=== PATIENT | male | born 1985 | race African-American/Black ===

== ENCOUNTER 2018-04-07 16:26 | Inpatient (IN) ==
[2018-04-07] MEDS ORDERED: Acetaminophen 325 MG Tablet PO PRN ×2 (18:20→18:27)
[2018-04-07] MEDS ORDERED: Sod Chloride 0.9% Inj 1,000 ML IV.CONT PRN (18:27)
[2018-04-07] MEDS ORDERED: Gelatin 12 MM/7 MM Topical Foam TOPICAL PRN (18:27)
[2018-04-07] MEDS ORDERED: Heparin 10,000 UNITS/10 ML Vial (for IV use) OTHER PRN (18:27)
[2018-04-07] MEDS ORDERED: Sod Chloride 0.9% Inj 1,000 ML OTHER PRN ×2 (18:27)
[2018-04-07] MEDS ORDERED: Albumin Human 25% Inj 100 ML IV.SIG PRN (18:27)
--- NOTE | 2018-04-07 18:35 | P.CONNP ---
History of Present Illness Service: Nephrology Consult date: 04/07/18 Requesting Physician: Narayan Healy Reason for Consult: End-stage renal disease Primary Care Provider: UNKNOWN History of Present Illness: Patient is a 32-year-old male with history of end-stage renal disease, FSGS, hypertension, he is here for a kidney transplant offer, he denies any chest pain , shortness of breath he states that he had dialysis yesterday, he gains about 3 -4 kg on average Goes on dialysis on Wednesday. Review of Systems Constitutional: Denies anorexia, Denies body ache(s), Denies chills, Denies daytime sleepiness, Denies excessive sweating, Denies fatigue, Denies fever(s), Denies headache(s), Denies increased appetite, Denies lack of energy, Denies malaise, Denies night sweats, Denies weakness, Denies weight gain, Denies weight loss, Denies other Eyes: Denies blind spots, Denies blurry vision, Denies bulging eyes, Denies change in vision, Denies double vision, Denies discharge, Denies dry eyes, Denies floaters, Denies irritation, Denies itchy eyes, Denies loss of vision, Denies pain, Denies requires corrective lenses, Denies sensitivity to light, Denies other Ears, Nose, Mouth, and Throat: Denies abnormal hearing, Denies bleeding gums, Denies bad breath, Denies change in voice, Denies dental pain, Denies difficulty swallowing, Denies dizziness, Denies dry mouth, Denies ear discharge , Denies ear pain, Denies facial pain, Denies headache(s), Denies hearing loss, Denies hoarseness, Denies lip swelling, Denies nosebleed, Denies mouth lesions, Denies mouth pain, Denies nasal congestion, Denies nasal discharge, Denies nasal obstruction, Denies nasal trauma, Denies neck lump, Denies neck pain, Denies nose pain, Denies pain with swallowing, Denies poor balance, Denies post nasal drip, Denies ringing in the ears, Denies sinus pain, Denies sinus pressure , Denies sore throat, Denies throat swelling, Denies tongue swelling, Denies other Cardiovascular: Denies chest pain, Denies chest pain at rest, Denies chest pain with activity, Denies excessive sweating, Denies fainting, Denies fast heart rate, Denies foot swelling, Denies generalized swelling, Denies irregular heart rhythm, Denies leg pain with activity, Denies leg sores, Denies leg swelling, Denies lightheadedness, Denies radiating jaw, neck or arm pain, Denies rapid, pounding, or irregular heartbeat, Denies shortness of breath, Denies shortness of breath with activity, Denies shortness of breath when lying down, Denies shortness of breath causing sudden awakening, Denies slow heart rate, Denies other Respiratory: Denies change in phlegm color, Denies chest congestion, Denies cough, Denies coughing up blood, Denies excessive phlegm production, Denies pain on inspiration, Denies pain with cough, Denies shortness of breath, Denies shortness of breath with activity, Denies snoring, Denies stridor, Denies wheezing, Denies other Gastrointestinal: Denies abdominal pain, Denies belching, Denies black, tarry stools, Denies bloating, Denies bright, red blood in stools, Denies change in bowel habits, Denies constant urge to pass stool, Denies change in stools, Denies coffee ground vomit, Denies constipation, Denies cramping, Denies difficulty swallowing, Denies excessive passing of gas, Denies feeling full early, Denies heartburn, Denies incontinent of stools, Denies loose stools, Denies nausea, Denies pain with swallowing, Denies vomiting, Denies vomiting blood, Denies other Genitourinary: Reports urinary frequency (Does not make urine) Musculoskeletal: Denies abnormal walking, Denies back pain, Denies body aches, Denies decreased muscle mass, Denies deformity, Denies joint pain, Denies joint swelling, Denies limited joint movement, Denies loss of height, Denies muscle cramps, Denies muscle weakness, Denies neck pain, Denies numbness, Denies radiating pain into limb, Denies stiffness, Denies tingling, Denies other Skin/Breast: Denies acne, Denies bleeding lesions, Denies boil, Denies breast swelling, Denies breast skin changes, Denies breast pain, Denies breast lump, Denies change in breast shape, Denies change in hair, Denies change in skin color, Denies changing lesions, Denies dry skin, Denies excessive hair growth, Denies hair loss, Denies itching, Denies lesions, Denies nail changes, Denies new lesions, Denies nipple discharge, Denies non-healing lesions, Denies redness , Denies sensitivity to light, Denies rash, Denies skin pain, Denies skin ulcer , Denies sores, Denies stretch larose, Denies unusual bruising, Denies wounds, Denies yellowing of the skin, Denies other Neurologic: Denies abnormal hearing, Denies abnormal movements, Denies abnormal speech, Denies abnormal walking, Denies behavioral changes, Denies burning sensations, Denies confusion, Denies dizziness, Denies fainting, Denies frequent falls, Denies headache(s), Denies lack of coordination, Denies localized weakness, Denies loss of vision, Denies memory loss, Denies numbness, Denies other visual disturbances, Denies radiating pain, Denies restless legs, Denies convulsions, Denies seizure-like activity, Denies sensory deficit, Denies tingling, Denies tingling/numbness/burning sensations, Denies tremor(s), Denies unsteadiness, Denies weakness, Denies other Psychiatric: Denies abnormal sleep pattern, Denies anxiety, Denies behavioral changes, Denies change in appetite, Denies change in sex drive, Denies confusion , Denies depression, Denies difficulty concentrating, Denies hearing things others do not hear, Denies hopelessness, Denies irritability, Denies lack of enjoyment, Denies memory loss, Denies mood swings, Denies panic attacks, Denies paranoia, Denies seeing things others do not see, Denies sensing things others do not sense, Denies tactile hallucinations, Denies thoughts of hurting/killing others, Denies thoughts of hurting/killing yourself, Denies other Endocrine: Denies cold intolerance, Denies excessive sweating, Denies flushing, Denies heat intolerance, Denies increased hunger, Denies increased thirst, Denies increased urination, Denies rapid, pounding, or irregular heartbeat, Denies other Hematologic/Lymphatic: Denies easy bleeding, Denies easy bruising, Denies enlarged lymph nodes, Denies other Allergic/Immunologic: Denies GI upset with certain foods, Denies hives, Denies itchy eyes, Denies lip swelling, Denies seasonal runny nose, Denies throat swelling, Denies tongue swelling, Denies wheezing, Denies other PMFSH - History History Provided By: Patient, Significant Other - Medical History Medical History: Medical History (Last Reviewed 04/07/18 @ 18:33 by Bronson Burr MD) AVF (arteriovenous fistula) Abnormal biopsy of kidney - Surgical History Surgical History: Surgical History (Last Reviewed 04/07/18 @ 18:33 by Bronson Burr MD) H/O inguinal hernia repair History of appendectomy - Family History Family History: Family History (Last Reviewed 04/07/18 @ 18:33 by Bronson Burr MD) Brother FSGS (focal segmental glomerulosclerosis) Mother HTN (hypertension) Father Glaucoma - Tobacco History Second Hand Smoke Exposure: No Smoking Status: Former smoker Tobacco Type: Cigarettes Cigarettes Per Day: 3 Years Smoked: 7 Smoking End Date: Last year - Alcohol History How Often Do You Have a Drink Containing Alcohol: Monthly or less - Substance Use History Substance History: No History of Abuse - Travel History History of Recent Travel: No Medications and Allergies Active Medications: Active Medications Acetaminophen (Tylenol) 650 mg PO Q4H PRN PRN Reason: Temp > 100.4, p 1-2 Ondansetron HCl (Zofran Inj) 4 mg IV.PUSH Q6H PRN PRN Reason: NAUSEA OR VOMITING Oxycodone/Acetaminophen (Percocet 5/325 Mg) 1 tab PO Q4H PRN PRN Reason: p 3-10 Senna/Docusate Sodium (Jaquelin-Colace) 1 tab PO BID LAZARO Sodium Chloride (Ns Flush) 2 ml IV.FLUSH BID LAZARO Sodium Chloride (Ns Flush) 2 ml IV.FLUSH PRN PRN PRN Reason: FLUSH AFTER USING IV ACCESS Allergies Allergy/AdvReac Type Severity Reaction Status Date / Time lisinopril Allergy Intermediate Rash Unverified 09/29/16 13:03 Home Medications Medication Instructions Recorded Confirmed Type amlodipine 10 mg PO BID 10/01/17 10/01/17 History carvedilol 37.5 mg PO BID 10/01/17 10/01/17 History cinacalcet [Sensipar] 120 mg PO DAILY 10/01/17 10/01/17 History clonidine HCl 0.2 mg PO BID 10/01/17 10/01/17 History losartan 50 mg PO DAILY 10/01/17 10/01/17 History minoxidil 2.5 mg PO DAILY 10/01/17 10/01/17 History sevelamer carbonate [Renvela] 4,000 mg PO TID 10/01/17 10/01/17 History spironolactone 25 mg PO DAILY 10/01/17 10/01/17 History Exam Narrative: GENERAL: Well-nourished, well-developed patient. SKIN: Warm and dry. HEAD: Normocephalic. EYES: No scleral icterus. No injection or drainage. NECK: Supple, trachea midline. No JVD or lymphadenopathy. CARDIOVASCULAR: Regular rate and rhythm without murmurs, gallops, or rubs. RESPIRATORY: Breath sounds equal bilaterally. No accessory muscle use. GASTROINTESTINAL: Abdomen soft, non-tender, nondistended. EXTREMITIES: 1+ edema NEUROLOGICAL: Awake, alert, and oriented x 3. Non-focal. Assessment and Plan - Assessment (1) ESRD (end stage renal disease) on dialysis Code(s): N18.6 - End stage renal disease; Z99.2 - Dependence on renal dialysis Status: Acute Plan: He is here for kidney transplant offer discussed with Dr. Healy Appears good, labs drawn Dialysis will be arranged for tonight He is scheduled to undergo kidney transplant around 11 AM Follow the protocol immunosuppressive medication is steroid, thyroglobulin induction. (2) HTN (hypertension) Code(s): I10 - Essential (primary) hypertension Status: Acute Plan: Continue to monitor blood pressure (2) HTN (hypertension) Qualifiers: Hypertension type: essential hypertension Qualified Code(s): I10 - Essential (primary) hypertension
--- NOTE | 2018-04-07 18:36 | P.HPIM ---
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 Patient states that he knew about his renal disease for many years and started dialysis in 2012. He says he started the transplant workup 1-2 days ago. He says he makes 0 urine at this time. His last dialysis session was on Wednesday. He has not had any problems with dialysis. He says every once in a while he will get back pains and headaches for which he takes Percocet at home. He is active and plays basketball every once in a while. He denies any recent fevers. He did endorse a cold a few weeks ago. He has no acute complaints at this time. Discussed with nursing and family at the bedside. Inpatient Certification Inpatient Certification: I certify that the inpatient services were ordered in accordance with Medicare regulations governing the order. This includes certification that hospital inpatient services are reasonable and necessary and in the case of services not specified as inpatient-only under 42 CFR 419.22(n), that they are appropriately provided as inpatient services in accordance to with the 2-midnight benchmark under 43 CFR 412.3(e) Estimated Total Length of Stay (Days): 3 Plans for Post Hospital Care: Home Review of Systems Review of Systems: all other systems reviewed are negative [facility] Medical History Medical History Arteriovenous fistula for hemodialysis in place, primary (Acute) Glomerulonephritis, focal sclerosing (Acute) HTN (hypertension) (Acute) Surgical History Surgical History History of appendectomy (Acute) Family History Family History Brother FSGS (focal segmental glomerulosclerosis) Mother HTN (hypertension) Father Glaucoma Social History Social History Substance History: No History of Abuse Second Hand Smoke Exposure: No Smoking Status: Former smoker Tobacco Type: Cigarettes Cigarettes Per Day: 3 Years Smoked: 7 Pack-Years: 1.05 Smoking End Date: Last year How Often Do You Have a Drink Containing Alcohol: Monthly or less Hx Recent Travel: No Medications and Allergies Allergies Allergy/AdvReac Type Severity Reaction Status Date / Time lisinopril Allergy Intermediate Rash Unverified 09/29/16 13:03 Home Medications Medication Instructions Recorded Confirmed Type amlodipine 10 mg PO BID 10/01/17 10/01/17 History carvedilol 37.5 mg PO BID 10/01/17 10/01/17 History cinacalcet [Sensipar] 120 mg PO DAILY 10/01/17 10/01/17 History clonidine HCl 0.2 mg PO BID 10/01/17 10/01/17 History losartan 50 mg PO DAILY 10/01/17 10/01/17 History minoxidil 2.5 mg PO DAILY 10/01/17 10/01/17 History sevelamer carbonate [Renvela] 4,000 mg PO TID 10/01/17 10/01/17 History spironolactone 25 mg PO DAILY 10/01/17 10/01/17 History Active Medications: Active Medications Acetaminophen (Tylenol) 650 mg PO Q4H PRN PRN Reason: Temp > 100.4, p 1-2 Ondansetron HCl (Zofran Inj) 4 mg IV.PUSH Q6H PRN PRN Reason: NAUSEA OR VOMITING Oxycodone/Acetaminophen (Percocet 5/325 Mg) 1 tab PO Q4H PRN PRN Reason: p 3-10 Senna/Docusate Sodium (Jaquelin-Colace) 1 tab PO BID LAZARO Sodium Chloride (Ns Flush) 2 ml IV.FLUSH BID LAZARO Sodium Chloride (Ns Flush) 2 ml IV.FLUSH PRN PRN PRN Reason: FLUSH AFTER USING IV ACCESS Physical Exam Narrative: General: NAD HEENT: NC, AT Lungs: CTAB, no W/R/R Cardiac: RRR, systolic murmur appreciated Abdomen: Soft, NT, ND Extremities: No edema Neuro: No gross deficits Caprini VTE Risk Assessment Caprini VTE Risk Assessment: No/Low Risk (score <= 1) Caprini Risk Assessment Model: Point Value = 1 Point Value = 2 Point Value = 3 Point Value = 5 Age 41-60 Minor surgery BMI > 25 kg/m2 Swollen legs Varicose veins or History of unexplained or recurrent spontaneous Oral contraceptives or hormone replacement Sepsis (< 1 month) Serious lung disease, including pneumonia (< 1 month) Abnormal pulmonary function Acute myocardial infarction Congestive heart failure (< 1 month) History of inflammatory bowel disease Medical patient at bed rest Age 61-74 Arthroscopic surgery Major open surgery (> 45 min) Laparoscopic surgery (> 45 min) Malignancy Confined to bed (> 72 hours) Immobilizing plaster cast Central venous access Age >= 75 History of VTE Family history of VTE Factor V Leiden Prothrombin [id number] Lupus anticoagulant Anticardiolipin antibodies Elevated serum homocysteine Heparin-induced thrombocytopenia Other congenital or acquired thrombophilia Stroke (< 1 month) Elective arthroplasty Hip, pelvis, or leg fracture Acute spinal cord injury (< 1 month) Prophylaxis Regimen: Total Risk Factor Score Risk Level Prophylaxis Regimen 0-1 Low Early ambulation 2 Moderate Order ONE of the following: *Sequential Compression Device (SCD) *Heparin 5000 units SQ BID 3-4 Higher Order ONE of the following medications: *Heparin 5000 units SQ TID *Enoxaparin/Lovenox 40 mg SQ daily (WT < 150 kg, CrCl > 30 mL/min) *Enoxaparin/Lovenox 30 mg SQ daily (WT < 150 kg, CrCl > 10-29 mL/min) *Enoxaparin/Lovenox 30 mg SQ BID (WT < 150 kg, CrCl > 30 mL/min) AND/OR *Sequential Compression Device (SCD) 5 or more Highest Order ONE of the following medications: *Heparin 5000 units SQ TID (Preferred with Epidurals) *Enoxaparin/Lovenox 40 mg SQ daily (WT < 150 kg, CrCl > 30 mL/min) *Enoxaparin/Lovenox 30 mg SQ daily (WT < 150 kg, CrCl > 10-29 mL/min) *Enoxaparin/Lovenox 30 mg SQ BID (WT < 150 kg, CrCl > 30 mL/min) AND *Sequential Compression Device (SCD) Assessment and Plan Plan 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 -Renal transplant in the works. -Follow BMP. -Avoid nephrotoxins. -nephrology and transplant surgery consulted. -pain control as needed. Hypertension Well-controlled at this time. -Resume home regimen once medication reconciliation is updated. PPx: SCDs
[2018-04-07] MEDS ORDERED: Sod Chloride 0.9% Inj 1,000 ML IV.CONT ONE (18:38)
--- NOTE | 2018-04-07 19:30 | P.CONTS ---
History of Present Illness Service: Transplant Surgery Consult date: 04/07/18 Requesting Physician: Gian Boles Reason for Consult: Admit for potential donor kidney transplant Primary Care Provider: UNKNOWN Chief Complaint: ESRD History of Present Illness: Mr Alex Massey III is a 32 yo AAM with the primary diagnosis of FSGS/Htn who completed a kidney transplant evaluation and was approved by our Kidney Listing Committee. A possible kidney donor has been found for him. ( final transplant crossmatch is nedegative with no channel shifts). Donor UNOS ID: [id number]. He is CMV+/ EBV+. He has required HD support since 07/25/12. His last dialysis was yesterday. And the time of admission, patient makes no urine (anuric since 2013). In the recent days he denies any fevers, recent hospitalizations, and any significant change in his health since he was last seen in our [facility]. Review of Systems Constitutional: Denies anorexia, Denies body ache(s), Denies chills, Denies daytime sleepiness, Denies excessive sweating, Denies fatigue, Denies fever(s), Denies headache(s), Denies increased appetite, Denies lack of energy, Denies malaise, Denies night sweats, Denies weakness, Denies weight gain, Denies weight loss, Denies other Eyes: Denies blind spots, Denies blurry vision, Denies bulging eyes, Denies change in vision, Denies double vision, Denies discharge, Denies dry eyes, Denies floaters, Denies irritation, Denies itchy eyes, Denies loss of vision, Denies pain, Denies requires corrective lenses, Denies sensitivity to light, Denies other Ears, Nose, Mouth, and Throat: Reports abnormal hearing, Reports ringing in the ears, Denies bleeding gums, Denies bad breath, Denies change in voice, Denies dental pain, Denies difficulty swallowing, Denies dizziness, Denies dry mouth, Denies ear discharge, Denies ear pain, Denies facial pain, Denies headache(s), Denies hearing loss, Denies hoarseness, Denies lip swelling, Denies nosebleed, Denies mouth lesions, Denies mouth pain, Denies nasal congestion, Denies nasal discharge, Denies nasal obstruction, Denies nasal trauma, Denies neck lump, Denies neck pain, Denies nose pain, Denies pain with swallowing, Denies poor balance, Denies post nasal drip, Denies sinus pain, Denies sinus pressure, Denies sore throat, Denies throat swelling, Denies tongue swelling, Denies other Cardiovascular: Denies chest pain, Denies chest pain at rest, Denies chest pain with activity, Denies excessive sweating, Denies fainting, Denies fast heart rate, Denies foot swelling, Denies generalized swelling, Denies irregular heart rhythm, Denies leg pain with activity, Denies leg sores, Denies leg swelling, Denies lightheadedness, Denies radiating jaw, neck or arm pain, Denies rapid, pounding, or irregular heartbeat, Denies shortness of breath, Denies shortness of breath with activity, Denies shortness of breath when lying down, Denies shortness of breath causing sudden awakening, Denies slow heart rate, Denies other Respiratory: Denies change in phlegm color, Denies chest congestion, Denies cough, Denies coughing up blood, Denies excessive phlegm production, Denies pain on inspiration, Denies pain with cough, Denies shortness of breath, Denies shortness of breath with activity, Denies snoring, Denies stridor, Denies wheezing, Denies other Gastrointestinal: Denies abdominal pain, Denies belching, Denies black, tarry stools, Denies bloating, Denies bright, red blood in stools, Denies change in bowel habits, Denies constant urge to pass stool, Denies change in stools, Denies coffee ground vomit, Denies constipation, Denies cramping, Denies difficulty swallowing, Denies excessive passing of gas, Denies feeling full early, Denies heartburn, Denies incontinent of stools, Denies loose stools, Denies nausea, Denies pain with swallowing, Denies vomiting, Denies vomiting blood, Denies other Genitourinary: Denies blood in semen, Denies blood in urine, Denies decreased urination, Denies difficulty urinating, Denies difficulty with ejaculations, Denies erectile dysfunction, Denies genital lesions, Denies genital pain, Denies painful urination, Denies side pain, Denies frequent nighttime urination , Denies painful ejaculations, Denies penile discharge, Denies scrotal swelling , Denies testicle lump, Denies testicle pain, Denies urinary frequency, Denies urinary hesitancy, Denies urinary incontinence, Denies urinary urgency, Denies other Comments: anuric since 2013 Musculoskeletal: Denies abnormal walking, Denies back pain, Denies body aches, Denies decreased muscle mass, Denies deformity, Denies joint pain, Denies joint swelling, Denies limited joint movement, Denies loss of height, Denies muscle cramps, Denies muscle weakness, Denies neck pain, Denies numbness, Denies radiating pain into limb, Denies stiffness, Denies tingling, Denies other Skin/Breast: Denies acne, Denies bleeding lesions, Denies boil, Denies breast swelling, Denies breast skin changes, Denies breast pain, Denies breast lump, Denies change in breast shape, Denies change in hair, Denies change in skin color, Denies changing lesions, Denies dry skin, Denies excessive hair growth, Denies hair loss, Denies itching, Denies lesions, Denies nail changes, Denies new lesions, Denies nipple discharge, Denies non-healing lesions, Denies redness , Denies sensitivity to light, Denies rash, Denies skin pain, Denies skin ulcer , Denies sores, Denies stretch larose, Denies unusual bruising, Denies wounds, Denies yellowing of the skin, Denies other Neurologic: Denies abnormal hearing, Denies abnormal movements, Denies abnormal speech, Denies abnormal walking, Denies behavioral changes, Denies burning sensations, Denies confusion, Denies dizziness, Denies fainting, Denies frequent falls, Denies headache(s), Denies lack of coordination, Denies localized weakness, Denies loss of vision, Denies memory loss, Denies numbness, Denies other visual disturbances, Denies radiating pain, Denies restless legs, Denies convulsions, Denies seizure-like activity, Denies sensory deficit, Denies tingling, Denies tingling/numbness/burning sensations, Denies tremor(s), Denies unsteadiness, Denies weakness, Denies other Psychiatric: Denies abnormal sleep pattern, Denies anxiety, Denies behavioral changes, Denies change in appetite, Denies change in sex drive, Denies confusion , Denies depression, Denies difficulty concentrating, Denies hearing things others do not hear, Denies hopelessness, Denies irritability, Denies lack of enjoyment, Denies memory loss, Denies mood swings, Denies panic attacks, Denies paranoia, Denies seeing things others do not see, Denies sensing things others do not sense, Denies tactile hallucinations, Denies thoughts of hurting/killing others, Denies thoughts of hurting/killing yourself, Denies other Endocrine: Denies cold intolerance, Denies excessive sweating, Denies flushing, Denies heat intolerance, Denies increased hunger, Denies increased thirst, Denies increased urination, Denies rapid, pounding, or irregular heartbeat, Denies other Hematologic/Lymphatic: Denies easy bleeding, Denies easy bruising, Denies enlarged lymph nodes, Denies other Allergic/Immunologic: Denies GI upset with certain foods, Denies hives, Denies itchy eyes, Denies lip swelling, Denies seasonal runny nose, Denies throat swelling, Denies tongue swelling, Denies wheezing, Denies other PMFSH - History History Provided By: Patient, Significant Other - Medical History Medical History: Medical History (Last Updated 04/07/18 @ 19:19 by Narayan Healy MD) Arteriovenous fistula for hemodialysis in place, primary GERD (gastroesophageal reflux disease) Glomerulonephritis, focal sclerosing HTN (hypertension) - Surgical History Surgical History: Surgical History (Last Updated 04/07/18 @ 19:19 by Narayan Healy MD) History of appendectomy S/P inguinal hernia repair - Family History Family History: Family History (Last Reviewed 04/07/18 @ 18:33 by Gian Boles DO) Brother FSGS (focal segmental glomerulosclerosis) Mother HTN (hypertension) Father Glaucoma - Tobacco History Second Hand Smoke Exposure: No Smoking Status: Former smoker Tobacco Type: Cigarettes Cigarettes Per Day: 3 Years Smoked: 7 Smoking End Date: Last year - Alcohol History How Often Do You Have a Drink Containing Alcohol: Monthly or less - Substance Use History Substance History: No History of Abuse - Travel History History of Recent Travel: No Recent Travel in the [facility] Within the Last 8 Weeks: No Recent Travel Out of the Country Within the Last 8 Weeks: No Medications and Allergies Active Medications: Active Medications Acetaminophen (Tylenol) 650 mg PO Q4H PRN PRN Reason: Temp > 100.4, p 1-2 Acetaminophen (Tylenol) 650 mg PO UNSCH PRN PRN Reason: SEE LABEL COMMENTS Clonidine HCl (Catapres) 0.1 mg PO UNSCH PRN PRN Reason: SEE LABEL COMMENTS Diphenhydramine HCl (Benadryl) 25 mg PO UNSCH PRN PRN Reason: SEE LABEL COMMENTS Gelatin (Gelfoam 12 Mm/7 Mm Topical) 1 foam TOPICAL PRN PRN PRN Reason: help stop bleeding from site Heparin Sodium (Porcine) (Heparin Inj) 8,000 units OTHER WITH DIALYSIS PRN PRN Reason: for machine prime Albumin Human (Flexbumin 25% Inj) 100 mls @ 60 mls/hr IV.SIG WITH DIALYSIS PRN PRN Reason: hypotension / volume replace Sodium Chloride (Ns Inj) 1,000 mls @ 0 mls/hr OTHER .Q0M PRN PRN Reason: for prime and rinse back Sodium Chloride (Ns Inj) 1,000 mls @ 200 mls/hr OTHER .Q5H PRN PRN Reason: for dialyzer flush PRN Sodium Chloride (Ns Inj) 1,000 mls @ 0 mls/hr IV.CONT .Q0M PRN PRN Reason: hypotension / volume replace Cefazolin Sodium/Dextrose (Ancef 2 Gm Premix Inj) 2 gm in 50 mls @ 100 mls/hr IV.SIG PLUMBER ASSISTANT LAZARO Stop: 04/10/18 18:40 Sodium Chloride (Ns Inj) 1,000 mls @ 40 mls/hr IV.CONT .Q24H ONE Stop: 04/08/18 18:37 Mannitol (Mannitol Inj) 12.5 gm IV.PUSH UNSCH PRN PRN Reason: hypotension / volume replace Mycophenolate Mofetil (Cellcept) 1,000 mg PO ONCE LAZARO Stop: 04/10/18 18:40 Nitroglycerin (Nitrostat Sl) 0.4 mg SL Q5M PRN PRN Reason: CHEST PAIN Ondansetron HCl (Zofran Inj) 4 mg IV.PUSH Q6H PRN PRN Reason: NAUSEA OR VOMITING Ondansetron HCl (Zofran Inj) 4 mg IV.PUSH UNSCH PRN PRN Reason: NAUSEA OR VOMITING Oxycodone/Acetaminophen (Percocet 5/325 Mg) 1 tab PO Q4H PRN PRN Reason: p 3-10 Senna/Docusate Sodium (Jaquelin-Colace) 1 tab PO BID LAZARO Sodium Chloride (Ns Flush) 2 ml IV.FLUSH BID LAZARO Sodium Chloride (Ns Flush) 2 ml IV.FLUSH PRN PRN PRN Reason: FLUSH AFTER USING IV ACCESS Sodium Chloride (Ns Flush) 5 ml IV.FLUSH PRN PRN PRN Reason: flush each lumen during HD Allergies Allergy/AdvReac Type Severity Reaction Status Date / Time lisinopril Allergy Intermediate Rash Unverified 09/29/16 13:03 Home Medications Medication Instructions Recorded Confirmed Type amlodipine 10 mg PO BID 10/01/17 10/01/17 History carvedilol 37.5 mg PO BID 10/01/17 10/01/17 History cinacalcet [Sensipar] 120 mg PO DAILY 10/01/17 10/01/17 History clonidine HCl 0.2 mg PO BID 10/01/17 10/01/17 History losartan 50 mg PO DAILY 10/01/17 10/01/17 History minoxidil 2.5 mg PO DAILY 10/01/17 10/01/17 History sevelamer carbonate [Renvela] 4,000 mg PO TID 10/01/17 10/01/17 History spironolactone 25 mg PO DAILY 10/01/17 10/01/17 History Physical Exam - Constitutional no acute distress - Routine HEENT Exam Head: Present: normocephalic, atraumatic Eye: Present: EOMI ENT: Present: mucous membranes moist - Routine Neck Exam Present: supple, full ROM Comments: No carotid bruits - Routine Respiratory Exam Present: CTA bilaterally - Routine Cardiovascular Exam Present: RRR, S1, S2, murmur (systolic murmur loudest at left second intercostal space) - Routine Abdominal Exam Present: soft, normoactive bowel sounds - Routine Extremities Exam Present: pulses intact Comments: palpable femoral/ Dp/PT pulses bilaterally - Routine Skin Exam Present: intact - Routine Neurological Exam Present: alert, oriented X3 - Detailed Neurological Exam: Coma Scale Verbal Response: Oriented - Routine Psychiatric Exam Present: normal affect, normal thought process Assessment and Plan - Assessment (1) 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 The patient will be consented for procedure and transfusion A PHS increased Risk Consent is not required. The patient is being admitted to the Hospitalists Service. The Transplant Nephrology Service is be consulted. The patient will be assigned to Case Management/Inpatient Status (2) HTN (hypertension) Qualifiers: Hypertension type: essential hypertension Qualified Code(s): I10 - Essential (primary) hypertension
[2018-04-07 20:28] LABS: Baso % (Auto) 0.7 % (0.0-2.0); Eos # (Auto) 0.2 th/mm3 (0.0-0.4); Eos % (Auto) 3.2 % (0.0-4.0); Hematocrit 28.6 % (39.0-51.0); Hemoglobin 9.2 gm/dL (13.0-17.0); Lymph # (Auto) 0.9 th/mm3 (1.0-4.8); Lymph % (Auto) 18.6 % (9.0-44.0); Mean Corpuscular HGB Conc 32.2 % (32.0-36.0); Mean Corpuscular Hemoglobin 27.7 pg (27.0-34.0); Mean Corpuscular Volume 85.8 fL (80.0-100.0); Mean Platelet Volume 7.2 fL (7.0-11.0); Mono # (Auto) 0.4 th/mm3 (0.0-0.9); Mono % (Auto) 9.3 % (0.0-8.0); Neut # (Auto) 3.2 th/mm3 (1.8-7.7); Neut % (Auto) 68.2 % (16.0-70.0); Platelet Count 152 th/mm3 (150-450); Red Blood Count 3.33 mil/mm3 (4.50-5.90); Red Cell Distribution Width 14.6 % (11.6-17.2); White Blood Count 4.8 th/mm3 (4.0-11.0)
[2018-04-07 20:43] LABS: Activated Partial Thrombo Time 29.6 sec (23.4-31.7); INR 1.2 Ratio; Prothrombin Time 11.8 sec (9.8-11.6)
[2018-04-07 20:45] LABS: Albumin 3.8 g/dL (3.4-5.0); Anion Gap 8 meq/L (5-15); Aspartate Aminotransferase 11 U/L (15-37); Blood Urea Nitrogen 55 mg/dL (7-18); Calcium 8.9 mg/dL (8.5-10.1); Carbon Dioxide 27.8 meq/L (21.0-32.0); Chloride 105 meq/L (98-107); Glomerular Filtration Rate 6 mL/min (>89); Glucose,Random 102 mg/dL (74-106); Potassium 4.3 meq/L (3.5-5.1); Sodium 141 meq/L (136-145)
[2018-04-07 20:47] LABS: Alanine Aminotransferase 17 U/L (12-78)
[2018-04-07 20:49] LABS: Alkaline Phosphatase 147 U/L (45-117); Total Protein 6.5 g/dL (6.4-8.2)
[2018-04-07 22:43] LABS: Hepatitis A IgM Antibody Nonreactive (Nonreactive); Hepatitits B Surface Antigen Nonreactive (Nonreactive)
--- NOTE | 2018-04-08 00:08 | XR ---
EXAM DATE: 04/07/2018 11:52 PM EST AGE/SEX: 32 years / Male INDICATIONS: . Pre op for kidney surgery. CLINICAL DATA: This is the patient's subsequent encounter. Patient reports that signs and symptoms h ave been present for 1 day and indicates a pain score of 0/10. MEDICAL/SURGICAL HISTORY: . Hypertension. . Inguinal hernia repair. AV fistula. COMPARISON: None . FINDINGS: PA and lateral views of the chest demonstrate the lungs to be symmetrically aerated without evidence of mass, infiltrate or effusion. Mild cardiomegaly without pulmonary vascular engorgement.. Mild scol iotic curvature.. CONCLUSION: Mild cardiomegaly. Clear lungs. Electronically signed by: Santo Schwartz MD Board Certified Radiologist 04/08/2018 12:06 AM EST
[2018-04-08] MEDS ORDERED: Chlorhexidine Gluconate 2% 1 Pack (2 Cloths) TOPICAL ONE (03:09)
[2018-04-08] MEDS: Senna/Docusate Sodium 8.6/50 MG Tablet PO SCH ×3 (05:28→20:33)
[2018-04-08 07:59] LABS: INR 1.1 Ratio; Prothrombin Time 11.1 sec (9.8-11.6)
[2018-04-08 08:00] LABS: Baso % (Auto) 0.7 % (0.0-2.0); Eos # (Auto) 0.1 th/mm3 (0.0-0.4); Eos % (Auto) 1.9 % (0.0-4.0); Hematocrit 33.1 % (39.0-51.0); Hemoglobin 10.6 gm/dL (13.0-17.0); Lymph # (Auto) 0.7 th/mm3 (1.0-4.8); Lymph % (Auto) 12.5 % (9.0-44.0); Mean Corpuscular HGB Conc 32.1 % (32.0-36.0); Mean Corpuscular Hemoglobin 27.2 pg (27.0-34.0); Mean Corpuscular Volume 84.6 fL (80.0-100.0); Mean Platelet Volume 7.1 fL (7.0-11.0); Mono # (Auto) 0.4 th/mm3 (0.0-0.9); Neut # (Auto) 4.2 th/mm3 (1.8-7.7); Neut % (Auto) 77.9 % (16.0-70.0); Platelet Count 167 th/mm3 (150-450); Red Blood Count 3.92 mil/mm3 (4.50-5.90); Red Cell Distribution Width 14.6 % (11.6-17.2); White Blood Count 5.4 th/mm3 (4.0-11.0)
[2018-04-08 08:14] LABS: Alanine Aminotransferase 20 U/L (12-78); Anion Gap 9 meq/L (5-15); Aspartate Aminotransferase 12 U/L (15-37); Blood Urea Nitrogen 37 mg/dL (7-18); Calcium 9.5 mg/dL (8.5-10.1); Carbon Dioxide 28.8 meq/L (21.0-32.0); Chloride 105 meq/L (98-107); Glomerular Filtration Rate 8 mL/min (>89); Glucose,Random 89 mg/dL (74-106); Potassium 4.2 meq/L (3.5-5.1); Sodium 143 meq/L (136-145)
--- NOTE | 2018-04-08 08:15 | P.PNIM ---
Subjective Interval history: f/u; ESRD- for kidney transplant in no acute distress. no new complaints. had a good night. Physical Exam Vital signs: Vital Signs 04/07/18 19:00 04/07/18 23:50 04/08/18 04:00 Temperature 98.6 F 98.3 F Pulse Rate 84 69 Respiratory Rate 18 18 Blood Pressure 161/86 H 170/90 H Pulse Oximetry 100 100 98 Intake & Output 04/07/18 04/08/18 04/08/18 18:59 06:59 18:59 Intake Total 30 / 30 Output Total 4500 / 4500 Balance -4470 / -4470 Weight 75.1 kg Intake: Oral 30 / 30 Output: Urine 0 / 0 Hemodialysis Amount 4500 / 4500 Constitutional no acute distress Routine Respiratory Exam Present CTA bilaterally Routine Cardiovascular Exam Present RRR Routine Abdominal Exam Present soft Routine Extremities Exam Comments: no pedal edema. Routine Neurological Exam Present alert and oriented X3 Results Labs CBC & Chem 7: 04/08/18 07:14 04/08/18 07:14 Imaging Imaging: Impressions Chest X-Ray 04/07/18 18:38 CONCLUSION: Mild cardiomegaly. Clear lungs. 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 -for Renal transplant . -Follow BMP. -Avoid nephrotoxins. -nephrology and transplant surgery consulted. -pain control as needed. Hypertension monitor for now. home meds to be verified. _ (1) HTN (hypertension) Qualifiers: Hypertension type: essential hypertension Qualified Code(s): I10 - Essential (primary) hypertension
[2018-04-08 08:17] LABS: Alkaline Phosphatase 162 U/L (45-117)
--- NOTE | 2018-04-08 08:53 | P.PNTS ---
Subjective Interval history: No new c/o. "ready" for surgery Physical Exam Vital signs: Vital Signs 04/07/18 19:00 04/07/18 23:50 04/08/18 04:00 Temperature 98.6 F 98.3 F Pulse Rate 84 69 Respiratory Rate 18 18 Blood Pressure 161/86 H 170/90 H Pulse Oximetry 100 100 98 Intake & Output 04/07/18 04/08/18 04/08/18 18:59 06:59 18:59 Intake Total 30 / 30 Output Total 4500 / 4500 Balance -4470 / -4470 Weight 75.1 kg Intake: Oral 30 / 30 Output: Urine 0 / 0 Hemodialysis Amount 4500 / 4500 - Constitutional no acute distress - Routine HEENT Exam Head: Present: normocephalic, atraumatic Eye: Present: EOMI ENT: Present: mucous membranes moist - Routine Neck Exam Present: supple, full ROM - Routine Respiratory Exam Present: CTA bilaterally - Routine Cardiovascular Exam Present: RRR, S1, S2, murmur - Routine Abdominal Exam Present: soft, normoactive bowel sounds - Routine Extremities Exam Present: pulses intact - Routine Skin Exam Present: intact - Routine Neurological Exam Present: alert, oriented X3 - Detailed Neurological Exam: Coma Scale Verbal Response: Oriented - Routine Psychiatric Exam Present: normal affect, normal thought process Results - Labs CBC & Chem 7: 04/08/18 07:14 04/08/18 07:14 Laboratory Results - last 24 hr 04/07/18 04/07/18 04/07/18 20:05 20:05 20:05 WBC 4.8 RBC 3.33 L Hgb 9.2 L Hct 28.6 L MCV 85.8 MCH 27.7 MCHC 32.2 RDW 14.6 Plt Count 152 MPV 7.2 Neut % (Auto) 68.2 Lymph % (Auto) 18.6 Arroyo % (Auto) 9.3 H Eos % (Auto) 3.2 Baso % (Auto) 0.7 Neut # (Auto) 3.2 Lymph # (Auto) 0.9 L Arroyo # (Auto) 0.4 Eos # (Auto) 0.2 Baso # (Auto) 0.0 WBC Differential . Differential Comment Auto diff final PT 11.8 H INR 1.2 APTT 29.6 Sodium Potassium Chloride Carbon Dioxide Anion Gap BUN Creatinine Estimated GFR Random Glucose Calcium Total Bilirubin AST ALT Alkaline Phosphatase Total Protein Albumin Hepatitis A IgM Ab Nonreactive Hep Bs Antigen Nonreactive Hep B Core IgM Ab Nonreactive Hep C IgG Ab Nonreactive Blood Type Antibody Screen MTS Gel Crossmatch 04/07/18 04/07/18 04/08/18 20:05 20:05 07:14 WBC 5.4 RBC 3.92 L Hgb 10.6 L Hct 33.1 L MCV 84.6 MCH 27.2 MCHC 32.1 RDW 14.6 Plt Count 167 MPV 7.1 Neut % (Auto) 77.9 H Lymph % (Auto) 12.5 Arroyo % (Auto) 7.0 Eos % (Auto) 1.9 Baso % (Auto) 0.7 Neut # (Auto) 4.2 Lymph # (Auto) 0.7 L Arroyo # (Auto) 0.4 Eos # (Auto) 0.1 Baso # (Auto) 0.0 WBC Differential . Differential Comment Auto diff final PT INR APTT Sodium 141 Potassium 4.3 Chloride 105 Carbon Dioxide 27.8 Anion Gap 8 BUN 55 H Creatinine 12.75 H* Estimated GFR 6 L Random Glucose 102 Calcium 8.9 Total Bilirubin 0.4 AST 11 L ALT 17 Alkaline Phosphatase 147 H Total Protein 6.5 Albumin 3.8 Hepatitis A IgM Ab Hep Bs Antigen Hep B Core IgM Ab Hep C IgG Ab Blood Type O Positive Antibody Screen Negative MTS Gel Crossmatch See Detail 04/08/18 04/08/18 07:14 07:14 WBC RBC Hgb Hct MCV MCH MCHC RDW Plt Count MPV Neut % (Auto) Lymph % (Auto) Arroyo % (Auto) Eos % (Auto) Baso % (Auto) Neut # (Auto) Lymph # (Auto) Arroyo # (Auto) Eos # (Auto) Baso # (Auto) WBC Differential Differential Comment PT 11.1 INR 1.1 APTT Sodium 143 Potassium 4.2 Chloride 105 Carbon Dioxide 28.8 Anion Gap 9 BUN 37 H Creatinine 9.47 H Estimated GFR 8 L Random Glucose 89 Calcium 9.5 Total Bilirubin 0.5 AST 12 L ALT 20 Alkaline Phosphatase 162 H Total Protein 7.0 Albumin 4.0 Hepatitis A IgM Ab Hep Bs Antigen Hep B Core IgM Ab Hep C IgG Ab Blood Type Antibody Screen MTS Gel Crossmatch - Imaging Impressions Chest X-Ray 04/07/18 18:38 CONCLUSION: Mild cardiomegaly. Clear lungs. 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 No issues overnight. OR scheduled for 1100 today. Will proceed as planned. (2) HTN (hypertension) Qualifiers: Hypertension type: essential hypertension Qualified Code(s): I10 - Essential (primary) hypertension
[2018-04-08] MEDS ORDERED: Heparin 10,000 UNITS/10 ML Vial (for IV use) ONE (09:04)
[2018-04-08] MEDS: Sodium Chlor 0.9% Inj 500 ML IV.SIG SCH ×2 (09:18→09:33)
[2018-04-08] MEDS ORDERED: hydrALAZINE HCl Inj 20 MG/ML Vial IV.PUSH ONE ×2 (10:00→11:06)
[2018-04-08] MEDS ORDERED: Furosemide Inj 10 ML ONE (10:39)
[2018-04-08] MEDS ORDERED: DOPAMINE IV.CONT ONE (10:44)
[2018-04-08] MEDS ORDERED: Hydrocortisone Sod Succinate 100 MG Vial IV.PUSH PRN (11:00)
[2018-04-08] MEDS ORDERED: MethylPREDNISolone Sod Succinate Inj 125 MG/2 ML Vial IV.PUSH ONE (11:00)
[2018-04-08] MEDS ORDERED: ceFAZolin 2 GM Premix Inj 2 GM/50 ML PIGGYBACK IV.SIG SCH (11:00)
[2018-04-08] MEDS ORDERED: Labetalol HCl Inj 100 MG/20 ML Vial IV.CONT ONE (11:06)
[2018-04-08] MEDS ORDERED: Sod Chloride 0.9% Inj 2,000 ML IV.CONT ONE (11:06)
[2018-04-08] MEDS ORDERED: Sodium Chlor 0.9% Inj 1,000 ML IV.CONT ONE (11:06)
[2018-04-08] MEDS ORDERED: Neostigmine Inj 5 MG/5 ML Syringe IV.PUSH ONE (11:06)
[2018-04-08] MEDS ORDERED: Glycopyrrolate Inj 1 MG/5 ML Syringe IV.PUSH ONE (11:06)
[2018-04-08] MEDS ORDERED: Lidocaine PF 1% Inj 5 ML Syringe OTHER ONE (11:06)
[2018-04-08] MEDS ORDERED: SODIUM CHLOR 0.9% IV.SIG ONE (12:00)
[2018-04-08] MEDS ORDERED: ANTITHYMOCYTE IG IV.SIG ONE (12:00)
[2018-04-08] MEDS ORDERED: HYDROmorphone PF Inj 2 MG/ML Vial ONE ×2 (12:45→16:10)
[2018-04-08] MEDS ORDERED: Dextrose 50% in Water 50 ML Vial IV.PUSH PRN (13:52)
[2018-04-08] MEDS ORDERED: Naloxone Inj 0.4 MG/ML Vial IV.PUSH PRN (13:52)
--- NOTE | 2018-04-08 14:26 | P.DIET ---
Nutritional Evaluation Type of nutrition evaluation: initial Screening comments: Nutrition Assessment for Kidney Transplantation Objective - Diagnosis ESRD/Kidney Transplant - Objective Body Mass Index: 21.8 % IBW: 90 (IBW: 83.6kg) Body Weight Used for Calculations: Actual Energy Needs - Lower Range (kCal/kg): 28 Energy Needs - Upper Range (kCal/kg): 33 Lower Limit kCal/kg (kCals): 2,103 Upper Limit kCal/kg (kCals): 2,478 Lower Limit Protein Factor (Grams per Kg): 1.2 Upper Limit Protein Factor (Grams per Kg): 1.5 Lower Protein Needs (Protein): 90 Upper Protein Needs (Protein): 113 Dietitian Reviewed in Medical Record: Curent medications, Intake & Output, Labs , Medical history Diet Order: NPO Assessment Assessment: Patient admitted for kidney transplantation with surgery scheduled for 11am this morning. Pt's nutritional needs are as assessed above. Will monitor pt's clinical course with the transplant team, beginning education on Wednesday, . Recommendations: Patient for kidney transplantation surgery today Will monitor clinical course. Dietitian to Monitor: Lab values, Intake & Output, Weight change, Diet advancement, Medical course
[2018-04-08] MEDS ORDERED: *morphine SULFATE 4 MG/ML PERIprocedure ONLY ONE (14:37)
[2018-04-08] MEDS ORDERED: *HYDROmorphone PF Inj 1 MG/ML Ampul PERIprocedural Use ONLY ONE ×5 (14:44→16:04)
[2018-04-08] MEDS ORDERED: fentaNYL Citrate Inj 100 MCG/2 ML Ampul ONE (14:44)
[2018-04-08] MEDS ORDERED: HYDROmorphone PF Inj 1 MG/ML Ampul IV.PUSH ONE (14:45)
[2018-04-08] MEDS: Dextrose 5%/NaCl 0.45% Inj 1,000 ML IV.CONT SCH (15:00)
--- NOTE | 2018-04-08 15:20 | XR ---
EXAM DATE: 04/08/2018 3:12 PM EST AGE/SEX: 32 years / Male INDICATIONS: Central line placement. CLINICAL DATA: This is the patient's subsequent encounter. Patient reports that signs and symptoms h ave been present for 2 days and indicates a pain score of Nonresponsive. MEDICAL/SURGICAL HISTORY: . Hypertension. . Inguinal hernia repair. AV fistula. COMPARISON: [facility] [place], CHEST 2V PA&LAT, 04/07/2018. . FINDINGS: Central line in expected location of the right atrium. Cardiomegaly with moderate parenchymal changes left base. No pneumothorax. CONCLUSION: Line in good position at right atrium Moderate parenchymal changes left base Electronically signed by: Rafat Roa MD Board Certified Radiologist 04/08/2018 3:19 PM EST
--- NOTE | 2018-04-08 15:21 | P.OP ---
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 Complex backtable reconstruction of cadaveric right kidney. Implants: 6 x 12 double J ureteral stent Surgeon: Narayan Healy Jr, MD Field Contact Person: Joshua Corona Estimated blood loss (mL): 400 IV fluids (mL): 1,800 Urine output (mL): 0 Pathology: none sent Operation and Findings: Cold ischemic time: 12 hours Warm ischemic time: 33 minutes Informed consent was obtained from the patient prior to surgery and the ABO was reviewed via primary source for the recipient and donor prior to surgery today. Recipient was brought into the OR and safely placed under general endotracheal anesthesia after the debriefing was performed. The ABO verification form was in the room with the patient and the renal allograft. The DonorNet file was checked and the donor ABO verified X 2 and recorded onto the ABO form with the Candidate ABO verified X 2 and recorded on the ABO verification form. The candidate's name was seen on the match run in [employer]. The patient had a Goldman catheter placed sterilely, and the abdomen was prepped and draped in the usual sterile fashion. We then did our standard surgical time out, reviewing the patient, allergies, antibiotics, operation to be performed, immunosuppression medications and ABO of the donor and recipient. All agreed and we proceeded. The anesthesia service acknowledged the administration of the IV Solumedrol 250 mg and Thymoglobulin infusion. As the anesthesia service was preparing the patient and Dr Joshua Corona began to expose the right iliac vessels, I prepared the renal allograft on the back table by removing all extraneous connective tissue, with ties and clips used as needed to secure transected tissue ends. There was a single artery, vein and ureter of sufficient length. Since this was a right kidney, the cephalad and caudal cava was stapled. The kidney was stored in sterile ice with preservative solution and replaced in sterile container with a sterile towel for cover. While I was doing the backtable preparation, Dr Corona made a right lower quadrant oblique incision from an area about two centimeters medial to the anterior iliac spine to the pubic symphysis. He then went through the skin, subcutaneous tissue, fascia, and into the right retroperitoneal space. He kept the cord structures mobilized out of harm's way. We spared the epigastric vessels. He had excellent exposure of the external iliac artery and vein and carefully dissected these free of the nerve, keeping this lateral and out of harm's way. The artery had no significant arteriosclerosis. The vein was normal. I joined him in the this portion of the procedure, as he was completing exposure of the vessels. Please see his dictation for additional detail. We then gave the patient 2,000 units of intravenous heparin, and allowed this to circulate for three minutes. We then placed a curved satinsky clamps on the iliac vein and opened the vein with the 11-blade, Seals scissors, and Hepflush. We anastomosed the donor renal vein to the recipient right external iliac vein using 5-0 Prolene in our standard technique. When this venous anastomosis was completed, we went ahead and placed a curved satinsky vascular clamp on the external iliac artery, opened into the iliac artery with the 11-blade, seals scissor and a 4-0 punch. Then we used 5-0 Prolene, placing a cephalad and caudal stitch, and then we were able to anastomose the arteries under direct visualization. When the arterial anastomosis was complete and tied, we went ahead and removed first the iliac vein clamp and allowed for flow across the venous anastomosis, with excellent hemostasis. We then allowed for the distal artery to open. The anastomotic area opened nicely, signifying no technical issues. We then allowed for forward flow from the artery down the leg. There was excellent flow, again with no need for any suture repair across the anastomosis. There was bleeding from several areas of cut tissue as well as from the attached gonadal vein. Clips were utilized to restore hemostasis. Electrocautery was used on the capsule as necessary. The kidney pinked up nicely. The patient was given our standard mannitol 25 gm as well as Lasix 80 mg IV and the second dose of Solumedrol 250 mg IV prior to reperfusion of the allograft. He tolerated this well. We then went ahead and placed the kidney into the right iliac fossa. It laid nicely and had good color. We then repositioned the Bookwalter retractor and had good exposure of the bladder. The antibiotic irrigant was flushed into the bladder. The bladder distended very nicely. After cutting the ureter to the correct length, we opened it to match the bladder opening, and then placed 5-0 PDS suture at each end. We did place a ureteral stent into the transplant ureter into the collecting system and it laid nicely and then into the bladder. We completed outr ureteral anastomosis in a running fashion. Of note, the kidney seemed to be making some urine as we were doing our anastomosis. When this was completed we placed 2 Lembert type sutures of 5-0 PDS, for anti-reflux purposes. There was some minimal bleeding areas and hemostasis was secured with clips, and /or cautery as needed. We also placed some surgicel and surgical snow. we achieved good hemostasis. Again the kidney laid nicely in the right iliac fossa. The vessels were laying nicely, with no signs of any obstruction to either inflow or outflow. There was a good pulse in distal external iliac artery also as well as the renal artery. We went ahead and did the count as we prepared to close the fascia. The count was correct. We went ahead and closed the fascia with running #1 PDS suture starting from each end of the wound and tying in the middle. We then used subcuticular suture to approximate the skin. A Primapore dressing was then applied patient tolerated the procedure well. We had final instrument and sponge counts correct times two. .
[2018-04-08 15:26] LABS: Baso % (Auto) 0.2 % (0.0-2.0); Hematocrit 31.9 % (39.0-51.0); Hemoglobin 10.2 gm/dL (13.0-17.0); Lymph % (Auto) 0.2 % (9.0-44.0); Mean Corpuscular Hemoglobin 27.5 pg (27.0-34.0); Mean Corpuscular Volume 85.9 fL (80.0-100.0); Mean Platelet Volume 7.2 fL (7.0-11.0); Mono # (Auto) 0.1 th/mm3 (0.0-0.9); Mono % (Auto) 0.9 % (0.0-8.0); Neut # (Auto) 15.4 th/mm3 (1.8-7.7); Neut % (Auto) 98.7 % (16.0-70.0); Platelet Count 169 th/mm3 (150-450); Red Blood Count 3.72 mil/mm3 (4.50-5.90); Red Cell Distribution Width 15.2 % (11.6-17.2); White Blood Count 15.6 th/mm3 (4.0-11.0)
[2018-04-08] MEDS: Pantoprazole Inj 40 MG Vial IV.PUSH SCH (15:28)
[2018-04-08] MEDS ORDERED: Nitroglycerin Drip Premix 50 MG/250 ML BOTTLE ONE (15:32)
--- NOTE | 2018-04-08 15:48 | US ---
EXAM DATE: 04/08/2018 3:40 PM EST AGE/SEX: 32 years / Male INDICATIONS: PostOp transplant surgery. CLINICAL DATA: This is the patient's initial encounter. Patient reports that signs and symptoms have been present for 1 day and indicates a pain score of 2/10. MEDICAL/SURGICAL HISTORY: . Hypertension. Renal disease, end stage. Dialysis. . Appendectomy. Right renal biopsy. Hernia repair. COMPARISON: [facility] [place], KIDNEY/RENAL/BLADDER, 09/28/2017. . MEASUREMENTS: Transplant Kidney:__12.9 x 5.5 x 5.6 cm Location:__Right lower quadrant Arcuate Arteries Resistive Index: Upper - 0.6 Mid - 0.6 Lower - 0.5 Main Renal Artery Velocity:__110.2 cm/sec Main Renal Vein:__Patent External Iliac Artery Velocity:__153.1 cm/sec External Iliac Vein:__Patent FINDINGS: Transplant Kidney: Normal echogenicity and cortical thickness. No mass or hydronephrosis. No peritra nsplant fluid. Urinary Bladder: Goldman catheter is present. Bladder decompressed. Other: No ascites CONCLUSION: 1. Transplant right lower quadrant that the bladder. 2. Normal arterial inflow and venous outflow. 3. There is no hydronephrosis Electronically signed by: Rafat Roa MD Board Certified Radiologist 04/08/2018 3:46 PM EST
[2018-04-08] MEDS: HYDROmorphone PCA Inj 6 MG/30 ML PCA.VIAL PCA PRN ×2 (15:50→21:15)
[2018-04-08] MEDS: Nitroglycerin Drip Premix 50 MG/250 ML BOTTLE IV.CONT PRN ×2 (15:50→23:16)
[2018-04-08 15:53] LABS: Carbon Dioxide 27.9 meq/L (21.0-32.0); Magnesium 2.1 mg/dL (1.5-2.5); Potassium 3.6 meq/L (3.5-5.1)
[2018-04-08] MEDS ORDERED: HYDROmorphone PF Inj 2 MG/ML Vial IV.PUSH ONE ×2 (16:09→21:10)
[2018-04-08] MEDS: Sodium Chloride 0.45 % Inj 1,000 ML IV.CONT PRN ×2 (16:10→17:10)
--- NOTE | 2018-04-08 18:26 | P.PNNP ---
Subjective Interval history: Patient is seen postoperatively is passing urine complaining of pain at the operative site Physical Exam Vital signs: Vital Signs 04/07/18 19:00 04/07/18 23:50 04/08/18 04:00 Temperature 98.6 F 98.3 F Pulse Rate 84 69 Respiratory Rate 18 18 Blood Pressure 161/86 H 170/90 H Pulse Oximetry 100 100 98 04/08/18 08:00 04/08/18 10:27 04/08/18 14:28 Temperature 98.6 F 98.0 F Pulse Rate 69 72 90 Respiratory Rate 16 20 Blood Pressure 170/97 H 180/98 H 165/90 H Pulse Oximetry 100 98 04/08/18 14:30 04/08/18 14:45 04/08/18 15:00 Temperature Pulse Rate 90 84 82 Respiratory Rate 22 20 22 Blood Pressure 169/94 H 163/88 H 165/95 H Pulse Oximetry 98 98 96 04/08/18 15:15 04/08/18 15:30 04/08/18 15:45 Temperature Pulse Rate 81 80 79 Respiratory Rate 24 20 24 Blood Pressure 159/88 H 164/92 H 170/96 H Pulse Oximetry 96 100 100 04/08/18 16:00 04/08/18 16:15 04/08/18 16:30 Temperature Pulse Rate 75 82 88 Respiratory Rate 20 20 22 Blood Pressure 167/91 H 177/98 H 161/93 H Pulse Oximetry 100 100 100 04/08/18 16:40 04/08/18 16:45 04/08/18 17:00 Temperature 98.2 F Pulse Rate 92 H 96 H Respiratory Rate 16 20 22 Blood Pressure 140/89 130/75 Pulse Oximetry 97 97 04/08/18 17:15 04/08/18 17:30 04/08/18 17:38 Temperature 97.7 F Pulse Rate 95 H 102 H 102 H Respiratory Rate 18 17 Blood Pressure 124/73 134/74 134/74 Pulse Oximetry 99 98 04/08/18 17:50 04/08/18 17:52 04/08/18 18:00 Temperature Pulse Rate 98 H 96 H Respiratory Rate 20 Blood Pressure 128/72 Pulse Oximetry 98 98 Intake & Output 04/07/18 04/08/18 04/08/18 18:59 06:59 18:59 Intake Total 30 / 30 3300 / 3300 Output Total 4500 / 4500 1600 / 1600 Balance -4470 / -4470 1700 / 1700 Weight 75.1 kg Intake: IV 1500 / 1500 1/2 Normal Saline Inj 1,000 ML 1000 / 1000 @ Per Protocol IV.CONT .Q0M PRN Rx#:[id number] Thymoglobulin Inj 115 MG In NS 500 / 500 Inj 500 ML @ 83.333 mls/hr IV. SIG ONCE ONE Rx#:[id number] Oral 30 / 30 Anesthesia Amount 1800 / 1800 Output: Urine 0 / 0 Hemodialysis Amount 4500 / 4500 Estimated Blood Loss 400 / 400 Urine Amount (Catheter) 1200 / 1200 Indwelling Urethral Catheter 1200 / 1200 Narrative: GENERAL: Well-nourished, well-developed patient. SKIN: Warm and dry. HEAD: Normocephalic. EYES: No scleral icterus. No injection or drainage. NECK: Supple, trachea midline. No JVD or lymphadenopathy. CARDIOVASCULAR: Regular rate and rhythm without murmurs, gallops, or rubs. RESPIRATORY: Breath sounds equal bilaterally. No accessory muscle use. GASTROINTESTINAL: Abdomen soft, postsurgical dressing on the right lower abdomen , nondistended. EXTREMITIES: 1+ edema NEUROLOGICAL: Awake, alert, and oriented x 3. Non-focal. - Urinary Catheter Management Indwelling Urethral Catheter Cath placed during this visit: yes Reason for continuing: Hourly intake/output Insertion date: 04/08/18 Insertion time: 11:25 Assessment and Plan - Assessment (1) ESRD (end stage renal disease) on dialysis Code(s): N18.6 - End stage renal disease; Z99.2 - Dependence on renal dialysis Status: Acute Plan: He had a kidney transplant and is doing well pass urine 400 cc after surgery and now 100 cc last hour Received Thymoglobulin induction Added clonidine 0.1 mg as needed Continue to monitor blood pressure Next dose of Thymoglobulin tomorrow Monitor blood work CBC and BMP Possibly can start tacrolimus if creatinine continues to decline (2) HTN (hypertension) Code(s): I10 - Essential (primary) hypertension Status: Acute Qualifiers: Hypertension type: essential hypertension Qualified Code(s): I10 - Essential (primary) hypertension Plan: Continue to monitor blood pressure
[2018-04-08] MEDS: Docusate Sodium 100 MG Capsule PO SCH (20:33)
[2018-04-08] MEDS ORDERED: Albumin Human 5% Inj 250 ML IV.SIG ONE ×2 (21:08→21:11)
[2018-04-09] MEDS: Sodium Chloride 0.45 % Inj 1,000 ML IV.CONT PRN ×3 (02:00→22:17)
[2018-04-09] MEDS: HYDROmorphone PCA Inj 6 MG/30 ML PCA.VIAL PCA PRN ×3 (03:13→18:20)
[2018-04-09 05:00] LABS: Calcium 8.1 mg/dL (8.5-10.1); Carbon Dioxide 24.8 meq/L (21.0-32.0); Magnesium 2.1 mg/dL (1.5-2.5); Phosphorus 5.8 mg/dL (2.5-4.9); Potassium 4.1 meq/L (3.5-5.1)
[2018-04-09 05:33] LABS: Baso % (Auto) 0.3 % (0.0-2.0); Lymph # (Auto) 0.1 th/mm3 (1.0-4.8); Lymph % (Auto) 0.6 % (9.0-44.0); Mean Corpuscular HGB Conc 32.2 % (32.0-36.0); Mean Corpuscular Hemoglobin 27.5 pg (27.0-34.0); Mean Corpuscular Volume 85.5 fL (80.0-100.0); Mean Platelet Volume 7.5 fL (7.0-11.0); Mono # (Auto) 1.1 th/mm3 (0.0-0.9); Mono % (Auto) 7.5 % (0.0-8.0); Neut # (Auto) 13.6 th/mm3 (1.8-7.7); Neut % (Auto) 91.6 % (16.0-70.0); Platelet Count 180 th/mm3 (150-450); Red Blood Count 2.19 mil/mm3 (4.50-5.90); Red Cell Distribution Width 14.8 % (11.6-17.2); White Blood Count 14.8 th/mm3 (4.0-11.0)
[2018-04-09 05:35] LABS: Hematocrit 18.8 % (39.0-51.0)
[2018-04-09 06:56] LABS: Mean Corpuscular HGB Conc 32.1 % (32.0-36.0); Mean Corpuscular Hemoglobin 27.7 pg (27.0-34.0); Mean Corpuscular Volume 86.3 fL (80.0-100.0); Mean Platelet Volume 7.8 fL (7.0-11.0); Platelet Count 176 th/mm3 (150-450); Red Blood Count 2.17 mil/mm3 (4.50-5.90); Red Cell Distribution Width 14.9 % (11.6-17.2); White Blood Count 16.2 th/mm3 (4.0-11.0)
[2018-04-09 06:58] LABS: Hematocrit 18.8 % (39.0-51.0)
[2018-04-09 07:12] LABS: Ovalocytes 1+; Platelet Estimate Normal (Normal); Platelet Morphology Normal (Normal)
--- NOTE | 2018-04-09 07:40 | P.OP ---
- Preoperative Diagnosis (1) ESRD (end stage renal disease) on dialysis - Postoperative Diagnosis (1) ESRD (end stage renal disease) on dialysis Date of procedure: 04/08/18 (assist note) Procedure: cadaveric kidney transplant Anesthesia: GETA Surgeon: Joshua Corona MD Operation and Findings: I assisted Dr. Healy as the teaching assistant for the kidney transplant implantation as there was no qualified resident available. I assisted with the isolation of the iliac vessels and the implantation of the renal allograft into the iliac vessels as well as obtaining hemostasis. The details will be dictated by Dr. Healy. Dr. Joshua Corona MD April 09, 2018 [id number]
[2018-04-09] MEDS: Nitroglycerin Drip Premix 50 MG/250 ML BOTTLE IV.CONT PRN ×3 (07:55→21:17)
[2018-04-09] MEDS: Pantoprazole Inj 40 MG Vial IV.PUSH SCH (08:59)
[2018-04-09] MEDS: Senna/Docusate Sodium 8.6/50 MG Tablet PO SCH ×2 (09:00→21:16)
--- NOTE | 2018-04-09 09:04 | US ---
EXAM DATE: 04/09/2018 8:50 AM EST AGE/SEX: 32 years / Male INDICATIONS: Post-renal transplant. CLINICAL DATA: This is the patient's subsequent encounter. Patient reports that signs and symptoms h ave been present for 1 day and indicates a pain score of 4/10. MEDICAL/SURGICAL HISTORY: . Left arm arteriovenous fistula for hemodialysis in place, primary. Glomerulonephritis, focal sclerosing. Hypertension. Renal disease, end stage. . Renal transplant 04/08/2018. Appendectomy. Inguinal hernia repair, right. Right renal biopsy. COMPARISON: [facility] [place], RENAL TRANSPLANT W DOP, 04/08/2018. . MEASUREMENTS: Transplant Kidney:__12.7 x 5.5 x 5.5 cm Location:__Right lower quadrant Arcuate Arteries Resistive Index: Upper - 0.7 Mid - 0.7 Lower - 0.7 Main Renal Artery Velocity:__263 cm/sec Main Renal Vein:__Patent External Iliac Artery Velocity:__151 cm/sec External Iliac Vein:__Patent FINDINGS: Transplant Kidney: Subtle subsegmental increase in echogenicity and cortical thickness. No mass or h ydronephrosis. No peritransplant fluid. Urinary Bladder: Goldman catheter is present. Bladder decompressed. Other: There is no peritransplant fluid. CONCLUSION: 1. No peritransplant fluid. Good flow. 2. Increased flow in the renal artery believe is technical. The anastomosis looks widely patent. Electronically signed by: aRfat Roa MD Board Certified Radiologist 04/09/2018 9:03 AM EST
[2018-04-09] MEDS: Docusate Sodium 100 MG Capsule PO SCH ×2 (09:07→21:16)
--- NOTE | 2018-04-09 09:11 | P.PNTS ---
Subjective Interval history: Mr Lyndon Massey is status post right donor kidney to right iliac fossa for ESRD secondary to Htn/FSGS. Reports feeling anxious. Still with some abd pain, but better controlled (/) . No N/V. Physical Exam Vital signs: Vital Signs 04/08/18 10:27 04/08/18 14:28 04/08/18 14:30 Temperature 98.0 F Pulse Rate 72 90 90 Respiratory Rate 20 22 Blood Pressure 180/98 H 165/90 H 169/94 H Pulse Oximetry 98 98 04/08/18 14:45 04/08/18 15:00 04/08/18 15:15 Temperature Pulse Rate 84 82 81 Respiratory Rate 20 22 24 Blood Pressure 163/88 H 165/95 H 159/88 H Pulse Oximetry 98 96 96 04/08/18 15:30 04/08/18 15:45 04/08/18 16:00 Temperature Pulse Rate 80 79 75 Respiratory Rate 20 24 20 Blood Pressure 164/92 H 170/96 H 167/91 H Pulse Oximetry 100 100 100 04/08/18 16:15 04/08/18 16:30 04/08/18 16:40 Temperature Pulse Rate 82 88 Respiratory Rate 20 22 16 Blood Pressure 177/98 H 161/93 H Pulse Oximetry 100 100 04/08/18 16:45 04/08/18 17:00 04/08/18 17:15 Temperature 98.2 F 97.7 F Pulse Rate 92 H 96 H 95 H Respiratory Rate 20 22 18 Blood Pressure 140/89 130/75 124/73 Pulse Oximetry 97 97 99 04/08/18 17:30 04/08/18 17:38 04/08/18 17:50 Temperature Pulse Rate 102 H 102 H 98 H Respiratory Rate 17 Blood Pressure 134/74 134/74 Pulse Oximetry 98 04/08/18 17:52 04/08/18 18:00 04/08/18 18:30 Temperature Pulse Rate 96 H 98 H Respiratory Rate 20 16 Blood Pressure 128/72 131/76 Pulse Oximetry 98 98 98 04/08/18 18:45 04/08/18 19:00 04/08/18 20:00 Temperature 97.4 F L Pulse Rate 98 H 98 H 101 H Respiratory Rate 15 20 20 Blood Pressure 153/66 H 122/74 135/75 Pulse Oximetry 98 98 96 04/08/18 21:00 04/08/18 21:45 04/08/18 21:56 Temperature Pulse Rate 101 H Respiratory Rate 18 18 18 Blood Pressure 128/75 Pulse Oximetry 98 04/08/18 22:00 04/08/18 22:45 04/08/18 23:00 Temperature 97.6 F Pulse Rate 101 H 109 H Respiratory Rate 18 18 Blood Pressure 128/75 133/74 Pulse Oximetry 95 95 93 L 04/09/18 00:00 04/09/18 01:00 04/09/18 02:00 Temperature Pulse Rate 110 H 111 H 101 H Respiratory Rate 18 18 18 Blood Pressure 125/84 139/79 138/78 Pulse Oximetry 95 98 98 04/09/18 03:00 04/09/18 03:20 04/09/18 04:00 Temperature 97.7 F Pulse Rate 119 H 122 H 119 H Respiratory Rate 20 18 Blood Pressure 135/83 145/83 H Pulse Oximetry 98 98 04/09/18 04:13 04/09/18 05:00 04/09/18 06:35 Temperature Pulse Rate 119 H 122 H 124 H Respiratory Rate 18 18 Blood Pressure 145/83 H 142/73 H 158/77 H Pulse Oximetry 90 L 94 L 04/09/18 07:38 04/09/18 07:57 04/09/18 08:01 Temperature 98.6 F Pulse Rate 122 H 122 H Respiratory Rate 20 Blood Pressure 136/53 L Pulse Oximetry 95 98 04/09/18 08:21 04/09/18 08:22 04/09/18 08:26 Temperature 98.6 F Pulse Rate 122 H 122 H Respiratory Rate 19 Blood Pressure 145/76 H 145/54 H Pulse Oximetry 95 04/09/18 08:43 Temperature 99 F Pulse Rate 122 H Respiratory Rate 19 Blood Pressure 145/76 H Pulse Oximetry 95 Intake & Output 04/08/18 04/09/18 04/09/18 18:59 06:59 18:59 Intake Total 3300 / 3300 3369 / 3369 32 / 32 Output Total 1600 / 1600 762 / 762 155 / 155 Balance 1700 / 1700 2607 / 2607 -123 / -123 Weight 78.1 kg Intake: IV 1500 / 1500 2389 / 2389 32 / 32 D5W/1/2 NS Inj 1,000 ML @ 40 595 / 595 mls/hr IV.CONT .Q24H LAZARO Rx#: [id number] Nitroglycerin Drip Premix 50 mg 444 / 444 32 / 32 In 250 ml @ 10 MCG/MIN 3 mls/ hr IV.CONT TITRATE PRN Rx#: [id number] 1/2 Normal Saline Inj 1,000 ML 1000 / 1000 1350 / 1350 @ Per Protocol IV.CONT .Q0M PRN Rx#:[id number] Thymoglobulin Inj 115 MG In NS 500 / 500 Inj 500 ML @ 83.333 mls/hr IV. SIG ONCE ONE Rx#:[id number] Oral 980 / 980 Anesthesia Amount 1800 / 1800 Intake (Blood Product) Amt 0 / 0 Rbc As-3 Leukoreduced Unit 0 / 0 [id number] Output: Urine 155 / 155 Estimated Blood Loss 400 / 400 Urine Amount (Catheter) 1200 / 1200 762 / 762 Indwelling Urethral Catheter 1200 / 1200 762 / 762 Other: # Bowel Movements 0 - Constitutional no acute distress - Routine HEENT Exam Head: Present: normocephalic Eye: Present: EOMI ENT: Present: mucous membranes moist - Routine Neck Exam Present: supple, full ROM - Routine Respiratory Exam Present: CTA bilaterally - Routine Cardiovascular Exam Present: RRR, S1, S2, murmur - Routine Abdominal Exam Present: soft, distended Comments: min-mod distension - Routine Extremities Exam Present: pulses intact - Routine Skin Exam Present: intact - Routine Neurological Exam Present: alert, oriented X3 - Detailed Neurological Exam: Coma Scale Verbal Response: Oriented - Routine Psychiatric Exam Present: normal affect, normal thought process - Urinary Catheter Management Indwelling Urethral Catheter Cath placed during this visit: yes Urethral indwelling: Yes Reason for continuing: Hourly intake/output Insertion date: 04/08/18 Insertion time: 11:25 Results - Labs CBC & Chem 7: 04/09/18 06:11 04/09/18 04:19 Laboratory Results - last 24 hr 04/07/18 04/08/18 04/08/18 20:05 15:00 15:00 WBC 15.6 H D RBC 3.72 L Hgb 10.2 L Hct 31.9 L MCV 85.9 MCH 27.5 MCHC 32.0 RDW 15.2 Plt Count 169 MPV 7.2 Prelim Diff (Auto) Neut % (Auto) 98.7 H Lymph % (Auto) 0.2 L [place] % (Auto) 0.9 Eos % (Auto) 0.0 Baso % (Auto) 0.2 Neut # (Auto) 15.4 H Lymph # (Auto) 0.0 L [place] # (Auto) 0.1 Eos # (Auto) 0.0 Baso # (Auto) 0.0 WBC Differential . Diff Scan Differential Comment Auto diff final Platelet Estimate Platelet Morphology Ovalocytes Hematology Comments Sodium 143 Potassium 3.6 Chloride 107 Carbon Dioxide 27.9 Anion Gap 8 BUN 40 H Creatinine 9.04 H Estimated GFR 8 L POC Glucose Random Glucose 142 H Calcium 8.0 L D Phosphorus 3.0 Magnesium 2.1 Blood Type O Positive Antibody Screen Negative MTS Gel Crossmatch See Detail 04/08/18 04/08/18 04/09/18 17:43 20:38 01:16 WBC RBC Hgb Hct MCV MCH MCHC RDW Plt Count MPV Prelim Diff (Auto) Neut % (Auto) Lymph % (Auto) [place] % (Auto) Eos % (Auto) Baso % (Auto) Neut # (Auto) Lymph # (Auto) [place] # (Auto) Eos # (Auto) Baso # (Auto) WBC Differential Diff Scan Differential Comment Platelet Estimate Platelet Morphology Ovalocytes Hematology Comments Sodium Potassium Chloride Carbon Dioxide Anion Gap BUN Creatinine Estimated GFR POC Glucose 194 H 164 H 135 H Random Glucose Calcium Phosphorus Magnesium Blood Type Antibody Screen MTS Gel Crossmatch 04/09/18 04/09/18 04/09/18 04:19 05:03 06:11 WBC 14.8 H 16.2 H RBC 2.19 L 2.17 L Hgb 6.0 L* D 6.0 L* Hct 18.8 L* 18.8 L* MCV 85.5 86.3 MCH 27.5 27.7 MCHC 32.2 32.1 RDW 14.8 14.9 Plt Count 180 176 MPV 7.5 7.8 Prelim Diff (Auto) Slide review pending Neut % (Auto) 91.6 H Lymph % (Auto) 0.6 L [place] % (Auto) 7.5 Eos % (Auto) 0.0 Baso % (Auto) 0.3 Neut # (Auto) 13.6 H Lymph # (Auto) 0.1 L [place] # (Auto) 1.1 H Eos # (Auto) 0.0 Baso # (Auto) 0.0 WBC Differential . Diff Scan Auto diff confirmed Differential Comment . Platelet Estimate Normal Platelet Morphology Normal Ovalocytes 1+ H Hematology Comments Sodium 143 Potassium 4.1 Chloride 106 Carbon Dioxide 24.8 Anion Gap 12 BUN 52 H Creatinine 7.68 H Estimated GFR 10 L POC Glucose Random Glucose 127 H Calcium 8.1 L Phosphorus 5.8 H D Magnesium 2.1 Blood Type Antibody Screen MTS Gel Crossmatch 04/09/18 04/09/18 04/09/18 06:29 07:13 07:23 WBC RBC Hgb Hct MCV MCH MCHC RDW Plt Count MPV Prelim Diff (Auto) Neut % (Auto) Lymph % (Auto) [place] % (Auto) Eos % (Auto) Baso % (Auto) Neut # (Auto) Lymph # (Auto) [place] # (Auto) Eos # (Auto) Baso # (Auto) WBC Differential Diff Scan Differential Comment Platelet Estimate Platelet Morphology Ovalocytes Hematology Comments Sodium Potassium Chloride Carbon Dioxide Anion Gap BUN Creatinine Estimated GFR POC Glucose 125 H Random Glucose Calcium Phosphorus Magnesium Blood Type Antibody Screen MTS Gel Crossmatch See Detail See Detail - Imaging Impressions Chest X-Ray 04/08/18 13:52 CONCLUSION: Line in good position at right atrium Moderate parenchymal changes left base Renal Ultrasound 04/08/18 13:52 CONCLUSION: 1. Transplant right lower quadrant that the bladder. 2. Normal arterial inflow and venous outflow. 3. 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 Allograft function: immediate. Immunosuppression: Thymoglobulin induction; Maint: steroids + Cellcept 1000 mg BID + will start Tacrolimus 2.5 mg BID Patient remains on an anti-hypertensive drip. Wood Inspector following. Will slowly transition to an oral regimen. Acute blood loss anemia noted this AM ( Hgb 6). Transfusing 2 units PRBC. Will repeat hgb after blood transfused. US this AM with no significant fluid collection noted. Patent renal vessels with good RIs (official report pending). Has needed quite a bit of opioids to control his pain. May have a mild ileus. Will slowly advance diet. (2) HTN (hypertension) Qualifiers: Hypertension type: essential hypertension Qualified Code(s): I10 - Essential (primary) hypertension
--- NOTE | 2018-04-09 10:38 | P.PNNP ---
Subjective Interval history: Patient is seen complaining of abdominal pain and hiccups getting packed red blood cell Physical Exam Vital signs: Vital Signs 04/08/18 14:28 04/08/18 14:30 04/08/18 14:45 Temperature 98.0 F Pulse Rate 90 90 84 Respiratory Rate 22 20 Blood Pressure 165/90 H 169/94 H 163/88 H Pulse Oximetry 98 98 98 04/08/18 15:00 04/08/18 15:15 04/08/18 15:30 Temperature Pulse Rate 82 81 80 Respiratory Rate 22 24 20 Blood Pressure 165/95 H 159/88 H 164/92 H Pulse Oximetry 96 96 100 04/08/18 15:45 04/08/18 16:00 04/08/18 16:15 Temperature Pulse Rate 79 75 82 Respiratory Rate 24 20 20 Blood Pressure 170/96 H 167/91 H 177/98 H Pulse Oximetry 100 100 100 04/08/18 16:30 04/08/18 16:40 04/08/18 16:45 Temperature Pulse Rate 88 92 H Respiratory Rate 22 16 20 Blood Pressure 161/93 H 140/89 Pulse Oximetry 100 97 04/08/18 17:00 04/08/18 17:15 04/08/18 17:30 Temperature 98.2 F 97.7 F Pulse Rate 96 H 95 H 102 H Respiratory Rate 22 18 17 Blood Pressure 130/75 124/73 134/74 Pulse Oximetry 97 99 98 04/08/18 17:38 04/08/18 17:50 04/08/18 17:52 Temperature Pulse Rate 102 H 98 H Respiratory Rate Blood Pressure 134/74 Pulse Oximetry 98 04/08/18 18:00 04/08/18 18:30 04/08/18 18:45 Temperature Pulse Rate 96 H 98 H 98 H Respiratory Rate 20 16 15 Blood Pressure 128/72 131/76 153/66 H Pulse Oximetry 98 98 98 04/08/18 19:00 04/08/18 20:00 04/08/18 21:00 Temperature 97.4 F L Pulse Rate 98 H 101 H 101 H Respiratory Rate 20 20 18 Blood Pressure 122/74 135/75 128/75 Pulse Oximetry 98 96 98 04/08/18 21:45 04/08/18 21:56 04/08/18 22:00 Temperature Pulse Rate 101 H Respiratory Rate 18 18 18 Blood Pressure 128/75 Pulse Oximetry 95 02/22/19 22:45 04/08/18 23:00 04/09/18 00:00 Temperature 97.6 F Pulse Rate 109 H 110 H Respiratory Rate 18 18 Blood Pressure 133/74 125/84 Pulse Oximetry 95 93 L 95 04/09/18 01:00 04/09/18 02:00 04/09/18 03:00 Temperature Pulse Rate 111 H 101 H 119 H Respiratory Rate 18 18 Blood Pressure 139/79 138/78 Pulse Oximetry 98 98 04/09/18 03:20 04/09/18 04:00 04/09/18 04:13 Temperature 97.7 F Pulse Rate 122 H 119 H 119 H Respiratory Rate 20 18 Blood Pressure 135/83 145/83 H 145/83 H Pulse Oximetry 98 98 04/09/18 05:00 04/09/18 06:35 04/09/18 07:38 Temperature Pulse Rate 122 H 124 H Respiratory Rate 18 18 Blood Pressure 142/73 H 158/77 H Pulse Oximetry 90 L 94 L 95 04/09/18 07:57 04/09/18 08:01 04/09/18 08:21 Temperature 98.6 F Pulse Rate 122 H 122 H 122 H Respiratory Rate 20 Blood Pressure 136/53 L 145/76 H Pulse Oximetry 98 04/09/18 08:22 04/09/18 08:26 04/09/18 08:43 Temperature 98.6 F 99 F Pulse Rate 122 H 122 H Respiratory Rate 19 19 Blood Pressure 145/54 H 145/76 H Pulse Oximetry 95 95 04/09/18 08:45 04/09/18 10:18 Temperature 99 F 99 F Pulse Rate Respiratory Rate Blood Pressure Pulse Oximetry Intake & Output 04/08/18 04/09/18 04/09/18 18:59 06:59 18:59 Intake Total 3300 / 3300 3369 / 3369 432 / 432 Output Total 1600 / 1600 762 / 762 380 / 380 Balance 1700 / 1700 2607 / 2607 52 / 52 Weight 78.1 kg Intake: IV 1500 / 1500 2389 / 2389 32 / 32 D5W/1/2 NS Inj 1,000 ML @ 40 595 / 595 mls/hr IV.CONT .Q24H [facility] Rx#: [id number] Nitroglycerin Drip Premix 50 mg 444 / 444 32 / 32 In 250 ml @ 10 MCG/MIN 3 mls/ hr IV.CONT TITRATE PRN Rx#: [id number] 1/2 Normal Saline Inj 1,000 ML 1000 / 1000 1350 / 1350 @ Per Protocol IV.CONT .Q0M PRN Rx#:[id number] Thymoglobulin Inj 115 MG In NS 500 / 500 Inj 500 ML @ 83.333 mls/hr IV. SIG ONCE ONE Rx#:[id number] Oral 980 / 980 Anesthesia Amount 1800 / 1800 Intake (Blood Product) Amt 400 / 400 Rbc As-3 Leukoreduced Unit 400 / 400 [id number] Output: Urine 380 / 380 Estimated Blood Loss 400 / 400 Urine Amount (Catheter) 1200 / 1200 762 / 762 Indwelling Urethral Catheter 1200 / 1200 762 / 762 Other: # Bowel Movements 0 Narrative: GENERAL: Well-nourished, well-developed patient. SKIN: Warm and dry. HEAD: Normocephalic. EYES: No scleral icterus. No injection or drainage. NECK: Supple, trachea midline. No JVD or lymphadenopathy. CARDIOVASCULAR: Regular rate and rhythm without murmurs, gallops, or rubs. RESPIRATORY: Breath sounds equal bilaterally. No accessory muscle use. GASTROINTESTINAL: Abdomen soft, postsurgical dressing on the right lower abdomen , nondistended. EXTREMITIES: 1+ edema NEUROLOGICAL: Awake, alert, and oriented x 3. Non-focal. - Urinary Catheter Management Indwelling Urethral Catheter Cath placed during this visit: yes Urethral indwelling: Yes Reason for continuing: Hourly intake/output Insertion date: 04/08/18 Insertion time: 11:25 Assessment and Plan - Assessment (1) ESRD (end stage renal disease) on dialysis Code(s): N18.6 - End stage renal disease; Z99.2 - Dependence on renal dialysis Status: Chronic Plan: He had a kidney transplant patient has drop in hemoglobin due to blood loss hemoglobin was 6 2 units of packed red blood cell Ultrasound did not reveal any significant collection Hypertension on Cardene drip Start Coreg and amlodipine Continue to monitor Creatinine declined to 7.68 Thymoglobulin and Prograf to start Continue to follow BMP CBC phosphorus and magnesium (2) HTN (hypertension) Code(s): I10 - Essential (primary) hypertension Status: Acute Qualifiers: Hypertension type: essential hypertension Qualified Code(s): I10 - Essential (primary) hypertension Plan: Continue to monitor blood pressure patient is on Cardene drip
[2018-04-09] MEDS: amLODIPine 10 MG Tablet PO SCH (10:41)
[2018-04-09] MEDS ORDERED: MethylPREDNISolone Sod Succinate Inj 125 MG/2 ML Vial IV.PUSH ONE (11:30)
[2018-04-09] MEDS ORDERED: Acetaminophen 325 MG Tablet PO ONE (11:30)
[2018-04-09] MEDS ORDERED: SODIUM CHLOR 0.9% IV.SIG ONE (12:00)
[2018-04-09] MEDS ORDERED: ANTITHYMOCYTE IG IV.SIG ONE (12:00)
[2018-04-09] MEDS ORDERED: Hydrocortisone Sod Succinate 100 MG Vial IV.PUSH PRN (12:00)
[2018-04-09] MEDS: Dextrose 5%/NaCl 0.45% Inj 1,000 ML IV.CONT SCH (13:28)
[2018-04-09 14:11] LABS: Hematocrit 20.7 % (39.0-51.0); Hemoglobin 7.1 gm/dL (13.0-17.0)
[2018-04-09] MEDS: niCARdipine Inj 25 MG in Sodium Chlor 0.9% Inj 240 ML IV.CONT PRN ×5 (14:33→22:17)
--- NOTE | 2018-04-09 14:33 | P.PNIM ---
Subjective Interval history: f/u; s/p kidney transplant in no acute distress. but uncomfortable with the pain. H/H trend noted. Physical Exam Vital signs: Vital Signs 04/08/18 14:45 04/08/18 15:00 04/08/18 15:15 Temperature Pulse Rate 84 82 81 Respiratory Rate 20 22 24 Blood Pressure 163/88 H 165/95 H 159/88 H Pulse Oximetry 98 96 96 04/08/18 15:30 04/08/18 15:45 04/08/18 16:00 Temperature Pulse Rate 80 79 75 Respiratory Rate 20 24 20 Blood Pressure 164/92 H 170/96 H 167/91 H Pulse Oximetry 100 100 100 04/08/18 16:15 04/08/18 16:30 04/08/18 16:40 Temperature Pulse Rate 82 88 Respiratory Rate 20 22 16 Blood Pressure 177/98 H 161/93 H Pulse Oximetry 100 100 04/08/18 16:45 04/08/18 17:00 04/08/18 17:15 Temperature 98.2 F 97.7 F Pulse Rate 92 H 96 H 95 H Respiratory Rate 20 22 18 Blood Pressure 140/89 130/75 124/73 Pulse Oximetry 97 97 99 04/08/18 17:30 04/08/18 17:38 04/08/18 17:50 Temperature Pulse Rate 102 H 102 H 98 H Respiratory Rate 17 Blood Pressure 134/74 134/74 Pulse Oximetry 98 04/08/18 17:52 04/08/18 18:00 04/08/18 18:30 Temperature Pulse Rate 96 H 98 H Respiratory Rate 20 16 Blood Pressure 128/72 131/76 Pulse Oximetry 98 98 98 04/08/18 18:45 04/08/18 19:00 04/08/18 20:00 Temperature 97.4 F L Pulse Rate 98 H 98 H 101 H Respiratory Rate 15 20 20 Blood Pressure 153/66 H 122/74 135/75 Pulse Oximetry 98 98 96 04/08/18 21:00 04/08/18 21:45 04/08/18 21:56 Temperature Pulse Rate 101 H Respiratory Rate 18 18 18 Blood Pressure 128/75 Pulse Oximetry 98 04/08/18 22:00 04/08/18 22:45 04/08/18 23:00 Temperature 97.6 F Pulse Rate 101 H 109 H Respiratory Rate 18 18 Blood Pressure 128/75 133/74 Pulse Oximetry 95 95 93 L 04/09/18 00:00 04/09/18 01:00 04/09/18 02:00 Temperature Pulse Rate 110 H 111 H 101 H Respiratory Rate 18 18 18 Blood Pressure 125/84 139/79 138/78 Pulse Oximetry 95 98 98 04/09/18 03:00 04/09/18 03:20 04/09/18 04:00 Temperature 97.7 F Pulse Rate 119 H 122 H 119 H Respiratory Rate 20 18 Blood Pressure 135/83 145/83 H Pulse Oximetry 98 98 04/09/18 04:13 04/09/18 05:00 04/09/18 06:35 Temperature Pulse Rate 119 H 122 H 124 H Respiratory Rate 18 18 Blood Pressure 145/83 H 142/73 H 158/77 H Pulse Oximetry 90 L 94 L 04/09/18 07:38 04/09/18 07:57 04/09/18 08:01 Temperature 98.6 F Pulse Rate 122 H 122 H Respiratory Rate 20 Blood Pressure 136/53 L Pulse Oximetry 95 98 04/09/18 08:21 04/09/18 08:22 04/09/18 08:26 Temperature 98.6 F Pulse Rate 122 H 122 H Respiratory Rate 19 Blood Pressure 145/76 H 145/54 H Pulse Oximetry 95 04/09/18 08:43 04/09/18 08:45 04/09/18 10:18 Temperature 99 F 99 F 99 F Pulse Rate 122 H Respiratory Rate 19 Blood Pressure 145/76 H Pulse Oximetry 95 04/09/18 10:37 04/09/18 10:47 04/09/18 11:06 Temperature 99 F 98.1 F 99 F Pulse Rate 122 H 124 H 128 H Respiratory Rate 17 16 16 Blood Pressure 152/86 H 170/87 H 168/87 H Pulse Oximetry 94 L 92 L 04/09/18 11:08 04/09/18 11:09 04/09/18 11:45 Temperature 99 F 97.7 F Pulse Rate 126 H 126 H Respiratory Rate 17 Blood Pressure Pulse Oximetry 92 L 04/09/18 12:13 04/09/18 13:17 Temperature 97.7 F Pulse Rate 118 H 120 H Respiratory Rate 18 Blood Pressure 157/99 H Pulse Oximetry 92 L Intake & Output 04/08/18 04/09/18 04/09/18 18:59 06:59 18:59 Intake Total 3300 / 3300 3369 / 3369 2087 / 2087 Output Total 1600 / 1600 762 / 762 880 / 880 Balance 1700 / 1700 2607 / 2607 1207 / 1207 Weight 78.1 kg Intake: IV 1500 / 1500 2389 / 2389 1687 / 1687 D5W/1/2 NS Inj 1,000 ML @ 40 595 / 595 405 / 405 mls/hr IV.CONT .Q24H [facility] Rx#: [id number] Nitroglycerin Drip Premix 50 mg 444 / 444 282 / 282 In 250 ml @ 10 MCG/MIN 3 mls/ hr IV.CONT TITRATE PRN Rx#: [id number] 1/2 Normal Saline Inj 1,000 ML 1000 / 1000 1350 / 1350 1000 / 1000 @ Per Protocol IV.CONT .Q0M PRN Rx#:[id number] Thymoglobulin Inj 115 MG In NS 500 / 500 Inj 500 ML @ 83.333 mls/hr IV. SIG ONCE ONE Rx#:[id number] Oral 980 / 980 Anesthesia Amount 1800 / 1800 Intake (Blood Product) Amt 400 / 400 Rbc As-3 Leukoreduced Unit 400 / 400 [id number] Rbc As-3 Leukoreduced Unit 0 / 0 [id number] Output: Urine 880 / 880 Estimated Blood Loss 400 / 400 Urine Amount (Catheter) 1200 / 1200 762 / 762 Indwelling Urethral Catheter 1200 / 1200 762 / 762 Other: # Bowel Movements 0 Constitutional no acute distress Routine Respiratory Exam Present CTA bilaterally Routine Cardiovascular Exam Present RRR Routine Abdominal Exam Present soft Routine Extremities Exam Comments: no pedal edema. Routine Neurological Exam Present alert and oriented X3 Urinary Catheter Management Indwelling Urethral Catheter: Cath placed during this visit: yes Urethral indwelling: Yes Reason for continuing: Hourly intake/output Insertion date: 04/08/18 Insertion time: 11:25 Results Labs CBC & Chem 7: 04/09/18 13:50 04/09/18 04:19 Imaging Imaging: Impressions Chest X-Ray 04/08/18 13:52 CONCLUSION: Line in good position at right atrium Moderate parenchymal changes left base Renal Ultrasound 04/08/18 13:52 CONCLUSION: 1. Transplant right lower quadrant that the bladder. 2. Normal arterial inflow and venous outflow. 3. There is no hydronephrosis Renal Ultrasound 04/09/18 00:00 CONCLUSION: 1. No peritransplant fluid. Good flow. 2. Increased flow in the renal artery believe is technical. The anastomosis looks widely patent. 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 -s/p Renal transplant . -continue Cellcept, Prograf -Avoid nephrotoxins. -nephrology and transplant surgery consulted. -pain control as needed. Hypertension continue Coreg and Amlodipine Anemia- post-op will transfused with PRBC and monitor H/H DVT prophylaxis- SCD's _ (1) HTN (hypertension) Qualifiers: Hypertension type: essential hypertension Qualified Code(s): I10 - Essential (primary) hypertension
[2018-04-09] MEDS ORDERED: Labetalol HCl Inj 100 MG/20 ML Vial IV.PUSH PRN (16:44)
--- NOTE | 2018-04-09 16:47 | P.CONCC ---
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 He understands procedure April 08, 2018 without complications. He has been admitted to CVICU postprocedure with critical care consultation for better blood pressure management. Review of Systems All other systems reviewed negative except as stated in HPI [facility] - History History Provided By: Patient, Significant Other - Medical History Medical History: Medical History (Last Updated 04/07/18 @ 19:19 by Narayan Healy MD) Arteriovenous fistula for hemodialysis in place, primary GERD (gastroesophageal reflux disease) Glomerulonephritis, focal sclerosing HTN (hypertension) - Surgical History Surgical History: Surgical History (Last Updated 04/07/18 @ 19:19 by Narayan Healy MD) History of appendectomy S/P inguinal hernia repair - Family History Family History: Family History (Last Reviewed 04/07/18 @ 18:33 by Gian Boles DO) Brother FSGS (focal segmental glomerulosclerosis) Mother HTN (hypertension) Father Glaucoma - Tobacco History Second Hand Smoke Exposure: No Smoking Status: Former smoker Tobacco Type: Cigarettes Cigarettes Per Day: 3 Years Smoked: 7 Smoking End Date: Last year - Alcohol History How Often Do You Have a Drink Containing Alcohol: Monthly or less - Substance Use History Substance History: No History of Abuse - Travel History History of Recent Travel: No Recent Travel in the [place] Within the Last 8 Weeks: No Recent Travel Out of the Country Within the Last 8 Weeks: No Medications and Allergies Active Medications: Active Medications Acetaminophen (Tylenol) 650 mg PO Q4H PRN PRN Reason: Temp > 100.4, p 1-2 Acetaminophen (Tylenol) 650 mg PO UNSCH PRN PRN Reason: SEE LABEL COMMENTS Albuterol (Duoneb Neb (Prn)) 1 ampul NEB Q6HR NEB PRN PRN Reason: WHEEZING Amlodipine Besylate (Norvasc) 10 mg PO DAILY [facility] Last Admin: 04/09/18 10:41 Dose: 10 mg Amlodipine Besylate (Norvasc) 10 mg PO BID [facility] Bisacodyl (Dulcolax Ec) 10 mg PO PRN PRN PRN Reason: CONSTIPATION Bisacodyl (Dulcolax Supp) 10 mg RECTAL PRN PRN PRN Reason: CONSTIPATION Calcium Carbonate (Tums Chew) 500 mg CHEW BID@ [facility] Last Admin: 04/09/18 15:46 Dose: 500 mg Carvedilol (Coreg) 25 mg PO BID [facility] Clonidine HCl (Catapres) 0.1 mg PO Q8HR PRN PRN Reason: SBP>160, DBP>90 Clonidine HCl (Catapres) 0.2 mg PO BID [facility] Dextrose (D50w Vial) 50 ml IV.PUSH UNSCH PRN PRN Reason: PER HYPOGLYCEMIA PROTOCOL Diphenhydramine HCl (Benadryl) 25 mg PO UNSCH PRN PRN Reason: SEE LABEL COMMENTS Diphenhydramine HCl (Benadryl Inj) 50 mg IV.PUSH ONCE PRN PRN Reason: anaphylactic reaction Diphenhydramine HCl (Benadryl) 25 mg PO Q6H PRN PRN Reason: ITCHING Diphenhydramine HCl (Benadryl Inj) 25 mg IV.PUSH Q6H PRN PRN Reason: ITCHING Diphenhydramine HCl (Benadryl Inj) 25 mg IV.PUSH Q6H PRN PRN Reason: for itching Diphenhydramine HCl (Benadryl Inj) 50 mg IV.PUSH ONCE PRN PRN Reason: anaphylactic reaction Docusate Sodium (Colace) 100 mg PO BID [facility] Last Admin: 04/09/18 09:07 Dose: 100 mg Epinephrine HCl (Epinephrine (1:10,000) Inj) 0.1 mg IV.PUSH ONCE PRN PRN Reason: SEE LABEL COMMENTS Epinephrine HCl (Epinephrine (1:10,000) Inj) 0.1 mg IV.PUSH ONCE PRN PRN Reason: SEE LABEL COMMENTS Gelatin (Gelfoam 12 Mm/7 Mm Topical) 1 foam TOPICAL PRN PRN PRN Reason: help stop bleeding from site Glucagon (Glucagon Inj) 1 mg OTHER PRN PRN PRN Reason: for Hypoglycemia Protocol Heparin Sodium (Porcine) (Heparin Inj) 8,000 units OTHER WITH DIALYSIS PRN PRN Reason: for machine prime Hydralazine HCl (Apresoline Inj) 20 mg IV.PUSH Q4H PRN PRN Reason: Sbp>150, Dbp>90 Hydrocortisone Sodium Succinate (Solucortef Inj) 200 mg IV.PUSH ONCE PRN PRN Reason: anaphylactic readtion Hydrocortisone Sodium Succinate (Solucortef Inj) 200 mg IV.PUSH ONCE PRN PRN Reason: anaphylactic readtion Albumin Human (Flexbumin 25% Inj) 100 mls @ 60 mls/hr IV.SIG WITH DIALYSIS PRN PRN Reason: hypotension / volume replace Sodium Chloride (Ns Inj) 1,000 mls @ 0 mls/hr OTHER .Q0M PRN PRN Reason: for prime and rinse back Sodium Chloride (Ns Inj) 1,000 mls @ 200 mls/hr OTHER .Q5H PRN PRN Reason: for dialyzer flush PRN Sodium Chloride (Ns Inj) 1,000 mls @ 0 mls/hr IV.CONT .Q0M PRN PRN Reason: hypotension / volume replace Cefazolin Sodium/Dextrose (Ancef 2 Gm Premix Inj) 2 gm in 50 mls @ 100 mls/hr IV.SIG RUBBER BLOCK LAYER [facility] Stop: 04/10/18 18:40 Sodium Chloride (Ns Inj) 500 mls @ 30 mls/hr IV.SIG .Q10H [facility] Last Admin: 04/08/18 09:33 Dose: Not Given Dextrose/Sodium Chloride (D5w/1/2 Ns Inj) 1,000 mls @ 40 mls/hr IV.CONT .Q24H [facility] Last Admin: 04/09/18 13:28 Dose: 40 mls/hr Hydromorphone/Sodium Chloride (Dilaudid [employer] Inj) 6 mg in 30 mls @ 0 mls/hr [employer] 9 THRU 12 [employer]ACHER UNSCH PRN PRN Reason: prn pain Last Admin: 04/09/18 09:00 Dose: 0 mls/hr Sodium Chloride (1/2 Normal Saline Inj) 1,000 mls @ 0 mls/hr IV.CONT .Q0M PRN PRN Reason: Replace urine output Stop: 04/11/18 23:59 Last Infusion: 04/09/18 16:03 Dose: 100 mls/hr Nitroglycerin/Dextrose (Nitroglycerin Drip Premix) 50 mg in 250 mls @ 3 mls/hr IV.CONT TITRATE PRN; Protocol PRN Reason: Per Protocol Last Titration: 04/09/18 15:12 Dose: 150 mcg/min, 45 mls/hr Nicardipine HCl 25 mg/ Sodium (Chloride) 250 mls @ 50 mls/hr IV.CONT TITRATE PRN; Protocol PRN Reason: Per Protocol Last Titration: 04/09/18 16:17 Dose: 15 mg/hr, 150 mls/hr Labetalol HCl (Trandate Inj) 10 mg IV.PUSH Q4H PRN PRN Reason: Sbp>150, Dbp>90 Lorazepam (Ativan Inj) 0.5 mg IV.PUSH Q6H PRN PRN Reason: ANXIETY AND/OR AGITATION Last Admin: 04/09/18 09:56 Dose: 0.5 mg Mannitol (Mannitol Inj) 12.5 gm IV.PUSH UNSCH PRN PRN Reason: hypotension / volume replace Minoxidil (Loniten) 2.5 mg PO DAILY [facility] Mycophenolate Mofetil (Cellcept) 1,000 mg PO BID@0600,1800 [facility] Last Admin: 04/09/18 06:23 Dose: 1,000 mg Naloxone HCl (Narcan Inj) 0.4 mg IV.PUSH PRN PRN PRN Reason: SEE LABEL COMMENTS Nitroglycerin (Nitrostat Sl) 0.4 mg SL Q5M PRN PRN Reason: CHEST PAIN Non-Formulary Medication (Carvedilol [Carvedilol]) 37.5 mg PO BID [facility] Non-Formulary Medication (Cinacalcet [Sensipar]) 120 mg PO DAILY [facility] Ondansetron HCl (Zofran Inj) 4 mg IV.PUSH UNSCH PRN PRN Reason: NAUSEA OR VOMITING Ondansetron HCl (Zofran Inj) 4 mg IV.PUSH Q6H PRN PRN Reason: MILD NAUSEA Oxycodone/Acetaminophen (Percocet 5/325 Mg) 1 tab PO Q4H PRN PRN Reason: p 3-10 Pantoprazole Sodium (Protonix Inj) 40 mg IV.PUSH DAILY [facility] Last Admin: 04/09/18 08:59 Dose: 40 mg Senna/Docusate Sodium (Jaquelin-Colace) 1 tab PO BID [facility] Last Admin: 04/09/18 09:00 Dose: 1 tab Sodium Chloride (Ns Flush) 2 ml IV.FLUSH BID [facility] Last Admin: 04/09/18 09:00 Dose: 2 ml Sodium Chloride (Ns Flush) 2 ml IV.FLUSH PRN PRN PRN Reason: FLUSH AFTER USING IV ACCESS Sodium Chloride (Ns Flush) 5 ml IV.FLUSH PRN PRN PRN Reason: flush each lumen during HD Tacrolimus (Prograf) 2 mg PO BID@0600,1800 [facility] Tacrolimus (Prograf) 0.5 mg PO BID@0600,1800 [facility] Allergies Allergy/AdvReac Type Severity Reaction Status Date / Time lisinopril Allergy Intermediate Rash Verified 04/08/18 19:28 Home Medications Medication Instructions Recorded Confirmed Type amlodipine 10 mg PO BID 10/01/17 04/08/18 History carvedilol 37.5 mg PO BID 10/01/17 04/08/18 History cinacalcet [Sensipar] 120 mg PO DAILY 10/01/17 04/08/18 History clonidine HCl 0.2 mg PO BID 10/01/17 04/08/18 History losartan 50 mg PO DAILY 10/01/17 04/08/18 History minoxidil 2.5 mg PO DAILY 10/01/17 04/08/18 History sevelamer carbonate [Renvela] 4,000 mg PO TID 10/01/17 04/08/18 History spironolactone 25 mg PO DAILY 10/01/17 04/08/18 History oxycodone-acetaminophen [Percocet] 1 tab PO QID PRN 04/08/18 04/08/18 History Physical Exam Vital signs: Vital Signs 04/08/18 17:00 04/08/18 17:15 04/08/18 17:30 Temperature 98.2 F 97.7 F Pulse Rate 96 H 95 H 102 H Respiratory Rate 22 18 17 Blood Pressure 130/75 124/73 134/74 Pulse Oximetry 97 99 98 04/08/18 17:38 04/08/18 17:50 04/08/18 17:52 Temperature Pulse Rate 102 H 98 H Respiratory Rate Blood Pressure 134/74 Pulse Oximetry 98 04/08/18 18:00 04/08/18 18:30 04/08/18 18:45 Temperature Pulse Rate 96 H 98 H 98 H Respiratory Rate 20 16 15 Blood Pressure 128/72 131/76 153/66 H Pulse Oximetry 98 98 98 04/08/18 19:00 04/08/18 20:00 04/08/18 21:00 Temperature 97.4 F L Pulse Rate 98 H 101 H 101 H Respiratory Rate 20 20 18 Blood Pressure 122/74 135/75 128/75 Pulse Oximetry 98 96 98 04/08/18 21:45 04/08/18 21:56 04/08/18 22:00 Temperature Pulse Rate 101 H Respiratory Rate 18 18 18 Blood Pressure 128/75 Pulse Oximetry 95 04/08/18 22:45 04/08/18 23:00 04/09/18 00:00 Temperature 97.6 F Pulse Rate 109 H 110 H Respiratory Rate 18 18 Blood Pressure 133/74 125/84 Pulse Oximetry 95 93 L 95 04/09/18 01:00 04/09/18 02:00 04/09/18 03:00 Temperature Pulse Rate 111 H 101 H 119 H Respiratory Rate 18 18 Blood Pressure 139/79 138/78 Pulse Oximetry 98 98 04/09/18 03:20 04/09/18 04:00 04/09/18 04:13 Temperature 97.7 F Pulse Rate 122 H 119 H 119 H Respiratory Rate 20 18 Blood Pressure 135/83 145/83 H 145/83 H Pulse Oximetry 98 98 04/09/18 05:00 04/09/18 06:35 04/09/18 07:38 Temperature Pulse Rate 122 H 124 H Respiratory Rate 18 18 Blood Pressure 142/73 H 158/77 H Pulse Oximetry 90 L 94 L 95 04/09/18 07:57 04/09/18 08:01 04/09/18 08:21 Temperature 98.6 F Pulse Rate 122 H 122 H 122 H Respiratory Rate 20 Blood Pressure 136/53 L 145/76 H Pulse Oximetry 98 04/09/18 08:22 04/09/18 08:26 04/09/18 08:43 Temperature 98.6 F 99 F Pulse Rate 122 H 122 H Respiratory Rate 19 19 Blood Pressure 145/54 H 145/76 H Pulse Oximetry 95 95 04/09/18 08:45 04/09/18 10:18 04/09/18 10:37 Temperature 99 F 99 F 99 F Pulse Rate 122 H Respiratory Rate 17 Blood Pressure 152/86 H Pulse Oximetry 04/09/18 10:47 04/09/18 11:06 04/09/18 11:08 Temperature 98.1 F 99 F 99 F Pulse Rate 124 H 128 H 126 H Respiratory Rate 16 16 17 Blood Pressure 170/87 H 168/87 H Pulse Oximetry 94 L 92 L 92 L 04/09/18 11:09 04/09/18 11:45 04/09/18 12:13 Temperature 97.7 F 97.7 F Pulse Rate 126 H 118 H Respiratory Rate 18 Blood Pressure 157/99 H Pulse Oximetry 92 L 04/09/18 13:17 04/09/18 15:13 04/09/18 15:15 Temperature 98.9 F Pulse Rate 120 H 119 H 119 H Respiratory Rate 16 Blood Pressure 151/90 H Pulse Oximetry 96 Intake & Output 04/08/18 04/09/18 04/09/18 18:59 06:59 18:59 Intake Total 3300 / 3300 3369 / 3369 2087 / 2087 Output Total 1600 / 1600 762 / 762 1090 / 1090 Balance 1700 / 1700 2607 / 2607 997 / 997 Weight 78.1 kg Intake: IV 1500 / 1500 2389 / 2389 1687 / 1687 D5W/1/2 NS Inj 1,000 ML @ 40 595 / 595 405 / 405 mls/hr IV.CONT .Q24H [facility] Rx#: [id number] Nitroglycerin Drip Premix 50 mg 444 / 444 282 / 282 In 250 ml @ 10 MCG/MIN 3 mls/ hr IV.CONT TITRATE PRN Rx#: [id number] 1/2 Normal Saline Inj 1,000 ML 1000 / 1000 1350 / 1350 1000 / 1000 @ Per Protocol IV.CONT .Q0M PRN Rx#:[id number] Thymoglobulin Inj 115 MG In NS 500 / 500 Inj 500 ML @ 83.333 mls/hr IV. SIG ONCE ONE Rx#:[id number] Oral 980 / 980 Anesthesia Amount 1800 / 1800 Intake (Blood Product) Amt 400 / 400 Rbc As-3 Leukoreduced Unit 400 / 400 [id number] Rbc As-3 Leukoreduced Unit 0 / 0 [id number] Output: Urine 1090 / 1090 Estimated Blood Loss 400 / 400 Urine Amount (Catheter) 1200 / 1200 762 / 762 Indwelling Urethral Catheter 1200 / 1200 762 / 762 Other: # Bowel Movements 0 - Constitutional no acute distress - Routine HEENT Exam Head: Present: normocephalic, atraumatic Eye: Present: PERRL, normal accommodation ENT: Present: mucous membranes moist - Routine Neck Exam Present: supple, full ROM. Absent: JVD, carotid bruit - Routine Respiratory Exam Absent: accessory muscle use, wheezes, crackles - Routine Cardiovascular Exam Present: RRR, S1, S2 - Routine Abdominal Exam Present: soft, normoactive bowel sounds - Routine Skin Exam Present: intact. Absent: cyanosis, erythema - Routine Neurological Exam Present: alert, oriented X3 - Detailed Neurological Exam: Coma Scale Eye Opening: Spontaneous Verbal Response: Oriented Motor Response: Obey commands [place] Coma Scale Total: 15 - Urinary Catheter Management Indwelling Urethral Catheter Cath placed during this visit: yes Urethral indwelling: Yes Reason for continuing: Hourly intake/output Insertion date: 04/08/18 Insertion time: 11:25 Septic Shock Reassessment Septic shock perfusion: reassessment completed Assessment and Plan - Assessment and Plan Plan: Focal sclerosing glomerulonephritis/ESRD -Status post renal transplant 04/08/18 -continue Cellcept, Prograf -Avoid nephrotoxins. -Further management per nephrology and transplant surgery -pain control as needed. Hypertension continue Coreg, Norvasc, clonidine -Labetalol, hydralazine, nicardipine drip as needed to keep SBP less than 150 Anemia -post-op -transfused with PRBC as needed and monitor H/H DVT prophylaxis- SCD's -Pharmacological DVT prophylaxis per transplant surgeon 35 minutes of critical care
[2018-04-09] MEDS: hydrALAZINE HCl Inj 20 MG/ML Vial IV.PUSH PRN (16:56)
[2018-04-09] MEDS: Labetalol HCl Inj 20 MG/4 ML Vial IV.PUSH PRN ×2 (17:38→22:06)
[2018-04-09] MEDS: Tacrolimus 0.5 MG Capsule PO SCH (18:06)
[2018-04-09] MEDS ORDERED: amLODIPine 10 MG Tablet PO SCH (21:00)
[2018-04-09] MEDS ORDERED: Carvedilol 12.5 MG Tablet PO SCH (21:00)
[2018-04-09] MEDS ORDERED: CARVEDILOL 37.5 MG PO SCH (21:00)
[2018-04-09] MEDS: Carvedilol 12.5 MG Tablet PO SCH (21:16)
--- NOTE | 2018-04-09 21:39 | ECG ---
Date Performed: 04/08/2018 Time Performed: 07:59:40 PTAGE: 32 years EKG: Sinus rhythm . Possible anterior infarct - age undetermined Abnormal ECG NO PREVIOUS TRACING DOCTOR: Blaise Estrada Interpretating Date/Time 04/09/2018 21:38:56
[2018-04-10] MEDS: niCARdipine Inj 25 MG in Sodium Chlor 0.9% Inj 240 ML IV.CONT PRN ×9 (00:05→16:34)
[2018-04-10] MEDS: HYDROmorphone PCA Inj 6 MG/30 ML PCA.VIAL PCA PRN ×2 (05:05→20:41)
[2018-04-10] MEDS: Sodium Chloride 0.45 % Inj 1,000 ML IV.CONT PRN (05:37)
[2018-04-10] MEDS: Tacrolimus 0.5 MG Capsule PO SCH ×2 (05:38→18:21)
[2018-04-10 05:39] LABS: Baso # (Auto) 0.1 th/mm3 (0.0-0.2); Baso % (Auto) 0.7 % (0.0-2.0); Lymph # (Auto) 0.1 th/mm3 (1.0-4.8); Lymph % (Auto) 0.6 % (9.0-44.0); Mean Corpuscular HGB Conc 34.2 % (32.0-36.0); Mean Corpuscular Hemoglobin 29.2 pg (27.0-34.0); Mean Corpuscular Volume 85.5 fL (80.0-100.0); Mean Platelet Volume 7.7 fL (7.0-11.0); Mono % (Auto) 9.2 % (0.0-8.0); Neut # (Auto) 9.7 th/mm3 (1.8-7.7); Neut % (Auto) 89.5 % (16.0-70.0); Platelet Count 89 th/mm3 (150-450); Red Blood Count 1.74 mil/mm3 (4.50-5.90); Red Cell Distribution Width 15.6 % (11.6-17.2); White Blood Count 10.8 th/mm3 (4.0-11.0)
[2018-04-10 05:48] LABS: Reticulocyte Percent 3.1 % (0.4-3.0)
[2018-04-10 05:59] LABS: Hemoglobin 5.1 gm/dL (13.0-17.0)
[2018-04-10 06:00] LABS: Hematocrit 14.9 % (39.0-51.0)
[2018-04-10 06:19] LABS: % Iron Saturation 10.9 % (20-50); Alanine Aminotransferase 37 U/L (12-78); Albumin 3.3 g/dL (3.4-5.0); Alkaline Phosphatase 97 U/L (45-117); Anion Gap 10 meq/L (5-15); Aspartate Aminotransferase 35 U/L (15-37); Blood Urea Nitrogen 55 mg/dL (7-18); Calcium 8.1 mg/dL (8.5-10.1); Carbon Dioxide 24.3 meq/L (21.0-32.0); Chloride 105 meq/L (98-107); Ferritin 933 ng/mL (26-388); Glomerular Filtration Rate 20 mL/min (>89); Glucose,Random 107 mg/dL (74-106); Iron 23 mcg/dL (65-175); Magnesium 2.1 mg/dL (1.5-2.5); Phosphorus 5.4 mg/dL (2.5-4.9); Sodium 139 meq/L (136-145); Total Iron Binding Capacity 211 mcg/dL (250-450); Total Protein 5.9 g/dL (6.4-8.2)
[2018-04-10 07:29] LABS: Platelet Morphology Normal (Normal)
[2018-04-10 07:39] LABS: Baso % (Auto) 0.2 % (0.0-2.0); Eos % (Auto) 0.1 % (0.0-4.0); Lymph % (Auto) 0.3 % (9.0-44.0); Mean Corpuscular HGB Conc 33.5 % (32.0-36.0); Mean Corpuscular Hemoglobin 28.2 pg (27.0-34.0); Mean Corpuscular Volume 84.2 fL (80.0-100.0); Mean Platelet Volume 7.8 fL (7.0-11.0); Mono % (Auto) 9.4 % (0.0-8.0); Neut # (Auto) 9.4 th/mm3 (1.8-7.7); Platelet Count 88 th/mm3 (150-450); Red Blood Count 1.75 mil/mm3 (4.50-5.90); Red Cell Distribution Width 15.7 % (11.6-17.2); White Blood Count 10.5 th/mm3 (4.0-11.0)
[2018-04-10 07:43] LABS: Hematocrit 14.8 % (39.0-51.0); Hemoglobin 4.9 gm/dL (13.0-17.0)
[2018-04-10 08:12] LABS: Platelet Morphology Normal (Normal)
[2018-04-10] MEDS ORDERED: Minoxidil 2.5 MG Tablet PO SCH ×3 (09:00→21:00)
[2018-04-10] MEDS ORDERED: Iron Sucrose Complex Inj 200 MG in Sodium Chlor 0.9% Inj 100 ML IV.SIG ONE (09:00)
[2018-04-10] MEDS ORDERED: CINACALCET PO SCH (09:00)
--- NOTE | 2018-04-10 09:13 | P.PNCC ---
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 He understands procedure April 08, 2018 without complications. He has been admitted to CVICU postprocedure with critical care consultation for better blood pressure management. 04/10: Hemoglobin dropped overnight requiring blood transfusion. Still remains on Cardene drip, no complaints Objective Vital Signs / I&O: Vital Signs 04/09/18 10:18 04/09/18 10:37 04/09/18 10:47 Temperature 99 F 99 F 98.1 F Pulse Rate 122 H 124 H Respiratory Rate 17 16 Blood Pressure 152/86 H 170/87 H Pulse Oximetry 94 L 04/09/18 11:06 04/09/18 11:08 04/09/18 11:09 Temperature 99 F 99 F Pulse Rate 128 H 126 H 126 H Respiratory Rate 16 17 Blood Pressure 168/87 H Pulse Oximetry 92 L 92 L 04/09/18 11:45 04/09/18 12:13 04/09/18 13:17 Temperature 97.7 F 97.7 F Pulse Rate 118 H 120 H Respiratory Rate 18 Blood Pressure 157/99 H Pulse Oximetry 92 L 04/09/18 15:13 04/09/18 15:15 04/09/18 20:00 Temperature 98.9 F 98.9 F Pulse Rate 119 H 119 H 111 H Respiratory Rate 16 20 Blood Pressure 151/90 H 156/78 H Pulse Oximetry 96 92 L 04/09/18 20:30 04/10/18 00:00 04/10/18 04:00 Temperature 99.0 F 98.5 F Pulse Rate 110 H 105 H Respiratory Rate 22 Blood Pressure 160/76 H 158/82 H Pulse Oximetry 94 L 99 98 04/10/18 07:25 04/10/18 08:12 Temperature 99 F Pulse Rate 109 H Respiratory Rate 18 Blood Pressure 158/80 H Pulse Oximetry 99 99 Intake & Output 04/09/18 04/10/18 04/10/18 18:59 06:59 18:59 Intake Total 3067 / 3067 4220 / 4220 0 / 0 Output Total 1280 / 1280 1605 / 1605 Balance 1787 / 1787 2615 / 2615 0 / 0 Weight 83.1 kg Intake: IV 2667 / 2667 3740 / 3740 D5W//2 NS Inj 1,000 ML @ 40 405 / 405 mls/hr IV.CONT .Q24H [facility] Rx#: [id number] Nitroglycerin Drip Premix 50 mg 282 / 282 250 / 250 In 250 ml @ 10 MCG/MIN 3 mls/ hr IV.CONT TITRATE PRN Rx#: [id number] 1/2 Normal Saline Inj 1,000 ML 1000 / 1000 2000 / 2000 @ Per Protocol IV.CONT .Q0M PRN Rx#:[id number] Cardene Inj 25 MG In NS Inj 240 480 / 480 1490 / 1490 ML @ 5 MG/HR 50 mls/hr IV.CONT TITRATE PRN Rx#:[id number] Thymoglobulin Inj 115 MG In NS 500 / 500 Inj 500 ML @ 125 mls/hr IV.SIG ONCE ONE Rx#:[id number] Oral 480 / 480 Intake (Blood Product) Amt 400 / 400 0 / 0 Rbc As-3 Leukoreduced Unit 0 / 0 [id number] Rbc As-3 Leukoreduced Unit 400 / 400 [id number] Rbc As-3 Leukoreduced Unit 0 / 0 [id number] Output: Urine 1280 / 1280 Urine Amount (Catheter) 1605 / 1605 Indwelling Urethral Catheter 1605 / 1605 Other: # Bowel Movements 0 Result Diagrams: 04/10/18 07:20 04/10/18 05:15 Objective Remarks: - Constitutional no acute distress - Routine HEENT Exam Head: Present: normocephalic, atraumatic Eye: Present: PERRL, normal accommodation ENT: Present: mucous membranes moist - Routine Neck Exam Present: supple, full ROM. Absent: JVD, carotid bruit - Routine Respiratory Exam Absent: accessory muscle use, wheezes, crackles - Routine Cardiovascular Exam Present: RRR, S1, S2 - Routine Abdominal Exam Present: soft, normoactive bowel sounds - Routine Skin Exam Present: intact. Absent: cyanosis, erythema - Routine Neurological Exam Present: alert, oriented X3 - Detailed Neurological Exam: Coma Scale Eye Opening: Spontaneous Verbal Response: Oriented Motor Response: Obey commands [place] Coma Scale Total: 15 Assessment and Plan - Assessment and Plan Plan: Focal sclerosing glomerulonephritis/ESRD -Status post renal transplant 04/08/18 -continue Cellcept, Prograf -Avoid nephrotoxins. -Further management per nephrology and transplant surgery -pain control as needed. Hypertension - continue Coreg, Norvasc, - Increase clonidine - Start hydralazine p.o. scheduled - Increase minoxidil - Labetalol, hydralazine, nicardipine drip as needed to keep SBP less than 150 Anemia -post-op -End-stage renal disease -transfused with PRBC last night -We will monitor H&H and transfuse as needed to keep hemoglobin above 7 DVT prophylaxis- SCD's -Pharmacological DVT prophylaxis per transplant surgeon Level 3
--- NOTE | 2018-04-10 09:15 | CT ---
EXAM DATE: 04/10/2018 9:06 AM EST AGE/SEX: 32 years / Male INDICATIONS: Post kidney transplant CLINICAL DATA: This is the patient's initial encounter. Patient reports that signs and symptoms have been present for 2 days and indicates a pain score of 8/10. MEDICAL/SURGICAL HISTORY: Gastroesophageal reflux disease. Hypertension. Appendectomy. Inguin al hernia repair. RADIATION DOSE: 15.39 CTDI (mGy) COMPARISON: [facility] [place]EL[place] W/O CONTRAST, 09/28/2017. . TECHNIQUE: Multiple contiguous axial images were obtained through the abdomen. Images were obtained using multiple row detector helical technique. Using automated exposure control and adjustment of the mA and/or kV according to patient size, radiation dose was kept as low as reasonably achievable to o btain optimal diagnostic quality images. DICOM format image data is available electronically for rev iew and comparison. FINDINGS: Moderate bibasilar parenchymal changes with some air bronchograms right base. Moderate cardiomegaly T race fluid on the right. Liver, spleen, pancreas are unremarkable. There is mesenteric edema with trace ascites evident. Lack of oral contrast makes evaluation of bowel somewhat difficult. Transplant with stent is seen in the right lower quadrant with a minimal hematoma superior pole of th e transplant. There is no large retroperitoneal hematoma. Small amount of air is seen tracking along the iliopsoas. Fluid is present in the pelvis. . CONCLUSION: 1. Transplant right lower quadrant a small hematoma adjacent to the upper pole the transplant. 2. I don't see evidence for a large hematoma to account for the dropped hematocrit. 3. This could easily be surveilled by ultrasound 4. Moderate free intraperitoneal fluid, low-density not felt to be blood. Electronically signed by: Rafat Roa MD Board Certified Radiologist 04/10/2018 9:14 AM EST
[2018-04-10] MEDS: Pantoprazole Inj 40 MG Vial IV.PUSH SCH (10:01)
[2018-04-10] MEDS: Docusate Sodium 100 MG Capsule PO SCH ×2 (10:02→21:55)
[2018-04-10] MEDS: Carvedilol 12.5 MG Tablet PO SCH ×2 (10:02→21:14)
[2018-04-10] MEDS: Senna/Docusate Sodium 8.6/50 MG Tablet PO SCH ×2 (10:02→21:15)
[2018-04-10] MEDS: amLODIPine 10 MG Tablet PO SCH (10:04)
--- NOTE | 2018-04-10 10:47 | P.PNTS ---
Subjective Interval history: No new c/o. Pain better controlled Physical Exam Vital signs: Vital Signs 04/09/18 10:47 04/09/18 11:06 04/09/18 11:08 Temperature 98.1 F 99 F 99 F Pulse Rate 124 H 128 H 126 H Respiratory Rate 16 16 17 Blood Pressure 170/87 H 168/87 H Pulse Oximetry 94 L 92 L 92 L 04/09/18 11:09 04/09/18 11:45 04/09/18 12:13 Temperature 97.7 F 97.7 F Pulse Rate 126 H 118 H Respiratory Rate 18 Blood Pressure 157/99 H Pulse Oximetry 92 L 04/09/18 13:17 04/09/18 15:13 04/09/18 15:15 Temperature 98.9 F Pulse Rate 120 H 119 H 119 H Respiratory Rate 16 Blood Pressure 151/90 H Pulse Oximetry 96 04/09/18 20:00 04/09/18 20:30 04/10/18 00:00 Temperature 98.9 F 99.0 F Pulse Rate 111 H 110 H Respiratory Rate 20 Blood Pressure 156/78 H 160/76 H Pulse Oximetry 92 L 94 L 99 04/10/18 04:00 04/10/18 07:25 04/10/18 08:12 Temperature 98.5 F 99 F Pulse Rate 105 H 109 H Respiratory Rate 22 18 Blood Pressure 158/82 H 158/80 H Pulse Oximetry 98 99 99 04/10/18 08:28 04/10/18 09:30 Temperature 99.4 F 99.4 F Pulse Rate 108 H 107 H Respiratory Rate 18 18 Blood Pressure 160/75 H 163/95 H Pulse Oximetry 98 98 Intake & Output 04/09/18 04/10/18 04/10/18 18:59 06:59 18:59 Intake Total 3067 / 3067 4220 / 4220 1800 / 1800 Output Total 1280 / 1280 1605 / 1605 Balance 1787 / 1787 2615 / 2615 1800 / 1800 Weight 83.1 kg Intake: IV 2667 / 2667 3740 / 3740 1400 / 1400 D5W/1/2 NS Inj 1,000 ML @ 40 405 / 405 mls/hr IV.CONT .Q24H [facility] Rx#: [id number] Nitroglycerin Drip Premix 50 mg 282 / 282 250 / 250 In 250 ml @ 10 MCG/MIN 3 mls/ hr IV.CONT TITRATE PRN Rx#: [id number] 1/2 Normal Saline Inj 1,000 ML 1000 / 1000 2000 / 2000 900 / 900 @ Per Protocol IV.CONT .Q0M PRN Rx#:[id number] Cardene Inj 25 MG In NS Inj 240 480 / 480 1490 / 1490 500 / 500 ML @ 5 MG/HR 50 mls/hr IV.CONT TITRATE PRN Rx#:[id number] Thymoglobulin Inj 115 MG In NS 500 / 500 Inj 500 ML @ 125 mls/hr IV.SIG ONCE ONE Rx#:[id number] Oral 480 / 480 Intake (Blood Product) Amt 400 / 400 400 / 400 Rbc As-3 Leukoreduced Unit 400 / 400 [id number] Rbc As-3 Leukoreduced Unit 400 / 400 [id number] Rbc As-3 Leukoreduced Unit 0 / 0 [id number] Output: Urine 1280 / 1280 Urine Amount (Catheter) 1605 / 1605 Indwelling Urethral Catheter 1605 / 1605 Other: # Bowel Movements 0 - Constitutional no acute distress - Routine HEENT Exam Head: Present: normocephalic, atraumatic Eye: Present: EOMI ENT: Present: mucous membranes moist - Routine Neck Exam Present: supple - Routine Respiratory Exam Present: CTA bilaterally - Routine Cardiovascular Exam Present: RRR, S1, S2, murmur - Routine Abdominal Exam Present: soft Comments: abd min-mod distended. Approp tender. Min staining on dressing. No rebound/ guarding - Routine Extremities Exam Present: pulses intact - Routine Skin Exam Present: intact - Routine Neurological Exam Present: alert, oriented X3 Patient was resting on initial eval, but opened eyes and was appropriately responsive - Detailed Neurological Exam: Coma Scale Verbal Response: Oriented - Routine Psychiatric Exam Present: normal affect, normal thought process - Urinary Catheter Management Indwelling Urethral Catheter Cath placed during this visit: yes Urethral indwelling: Yes Reason for continuing: Hourly intake/output Insertion date: 04/08/18 Insertion time: 11:25 Results - Labs CBC & Chem 7: 04/10/18 07:20 04/10/18 05:15 Laboratory Results - last 24 hr 04/07/18 04/09/18 04/09/18 20:05 07:13 07:23 WBC RBC Hgb Hct MCV MCH MCHC RDW Plt Count MPV Prelim Diff (Auto) Neut % (Auto) Lymph % (Auto) [place] % (Auto) Eos % (Auto) Baso % (Auto) Neut # (Auto) Lymph # (Auto) [place] # (Auto) Eos # (Auto) Baso # (Auto) WBC Differential Diff Scan Differential Comment Platelet Estimate Platelet Morphology Retic Count Absolute Retic Sodium Potassium Chloride Carbon Dioxide Anion Gap BUN Creatinine Estimated GFR POC Glucose Random Glucose Calcium Phosphorus Magnesium Iron TIBC % Saturation Ferritin Total Bilirubin AST ALT Alkaline Phosphatase Total Protein Albumin Blood Type O Positive Antibody Screen Negative MTS Gel Crossmatch See Detail See Detail See Detail 04/09/18 04/09/18 04/09/18 12:16 13:50 18:24 WBC RBC Hgb 7.1 L Hct 20.7 L* MCV MCH MCHC RDW Plt Count MPV Prelim Diff (Auto) Neut % (Auto) Lymph % (Auto) [place] % (Auto) Eos % (Auto) Baso % (Auto) Neut # (Auto) Lymph # (Auto) [place] # (Auto) Eos # (Auto) Baso # (Auto) WBC Differential Diff Scan Differential Comment Platelet Estimate Platelet Morphology Retic Count Absolute Retic Sodium Potassium Chloride Carbon Dioxide Anion Gap BUN Creatinine Estimated GFR POC Glucose 108 133 H Random Glucose Calcium Phosphorus Magnesium Iron TIBC % Saturation Ferritin Total Bilirubin AST ALT Alkaline Phosphatase Total Protein Albumin Blood Type Antibody Screen MTS Gel Crossmatch 04/10/18 04/10/18 04/10/18 05:15 05:15 05:15 WBC 10.8 RBC 1.74 L Hgb 5.1 L* D Hct 14.9 L* MCV 85.5 MCH 29.2 MCHC 34.2 RDW 15.6 Plt Count 89 L D MPV 7.7 Prelim Diff (Auto) Slide review pending Neut % (Auto) 89.5 H Lymph % (Auto) 0.6 L [place] % (Auto) 9.2 H Eos % (Auto) 0.0 Baso % (Auto) 0.7 Neut # (Auto) 9.7 H Lymph # (Auto) 0.1 L [place] # (Auto) 1.0 H Eos # (Auto) 0.0 Baso # (Auto) 0.1 WBC Differential . Diff Scan Auto diff confirmed Differential Comment . Platelet Estimate Low L Platelet Morphology Normal Retic Count 3.1 H Absolute Retic 54.3 Sodium 139 Potassium 4.0 Chloride 105 Carbon Dioxide 24.3 Anion Gap 10 BUN 55 H Creatinine 4.23 H Estimated GFR 20 L POC Glucose Random Glucose 107 H Calcium 8.1 L Phosphorus 5.4 H Magnesium 2.1 Iron 23 L TIBC 211 L % Saturation 10.9 L Ferritin 933 H Total Bilirubin 0.3 AST 35 ALT 37 Alkaline Phosphatase 97 Total Protein 5.9 L D Albumin 3.3 L D Blood Type Antibody Screen MTS Gel Crossmatch 04/10/18 04/10/18 04/10/18 05:43 07:20 07:20 WBC 10.5 RBC 1.75 L Hgb 4.9 L* Hct 14.8 L* MCV 84.2 MCH 28.2 MCHC 33.5 RDW 15.7 Plt Count 88 L MPV 7.8 Prelim Diff (Auto) Slide review pending Neut % (Auto) 90.0 H Lymph % (Auto) 0.3 L [place] % (Auto) 9.4 H Eos % (Auto) 0.1 Baso % (Auto) 0.2 Neut # (Auto) 9.4 H Lymph # (Auto) 0.0 L [place] # (Auto) 1.0 H Eos # (Auto) 0.0 Baso # (Auto) 0.0 WBC Differential . Diff Scan Auto diff confirmed Differential Comment . Platelet Estimate Low L Platelet Morphology Normal Retic Count Absolute Retic Sodium Potassium Chloride Carbon Dioxide Anion Gap BUN Creatinine Estimated GFR POC Glucose 118 H Random Glucose Calcium Phosphorus Magnesium Iron TIBC % Saturation Ferritin Total Bilirubin AST ALT Alkaline Phosphatase Total Protein Albumin Blood Type O Positive Antibody Screen Negative MTS Gel Crossmatch See Detail - Imaging Impressions Abdomen/Pelvis CT 04/10/18 00:00 . CONCLUSION: 1. Transplant right lower quadrant a small hematoma adjacent to the upper pole the transplant. 2. I don't see evidence for a large hematoma to account for the dropped hematocrit. 3. This could easily be surveilled by ultrasound 4. Moderate free intraperitoneal fluid, low-density not felt to be blood. 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 Allograft function: immediate. Immunosuppression: Thymoglobulin induction; Maint: steroids + Cellcept 1000 mg BID + will start Tacrolimus 2.5 mg BID Patient remains on an anti-hypertensive drip. [employer] Representative following. Hgb this Am, noted to be 4.9. CT of abd/pelvis done. Reviewed with Dr Myers, then discussed with Dr Corona. Concern for perinephric hematoma. Decision made to proceed to OR for wound exploration. (2) HTN (hypertension) Qualifiers: Hypertension type: essential hypertension Qualified Code(s): I10 - Essential (primary) hypertension
[2018-04-10] MEDS: hydrALAZINE 50 MG Tablet PO SCH ×3 (11:03→18:21)
[2018-04-10] MEDS: Nitroglycerin Drip Premix 50 MG/250 ML BOTTLE IV.CONT PRN ×3 (11:05→19:54)
[2018-04-10 11:20] LABS: Mean Corpuscular HGB Conc 33.3 % (32.0-36.0); Mean Corpuscular Hemoglobin 28.5 pg (27.0-34.0); Mean Corpuscular Volume 85.7 fL (80.0-100.0); Mean Platelet Volume 8.1 fL (7.0-11.0); Platelet Count 90 th/mm3 (150-450); Red Blood Count 2.11 mil/mm3 (4.50-5.90); Red Cell Distribution Width 15.4 % (11.6-17.2); White Blood Count 11.3 th/mm3 (4.0-11.0)
[2018-04-10 11:27] LABS: Hematocrit 18.1 % (39.0-51.0)
[2018-04-10] MEDS ORDERED: fentaNYL Citrate Inj 250 MCG/5 ML Ampul ONE (11:30)
[2018-04-10] MEDS ORDERED: fentaNYL Citrate Inj 100 MCG/2 ML Ampul ONE (11:30)
[2018-04-10] MEDS ORDERED: Sodium Chlor 0.9% Inj 250 ML IV.CONT ONE (11:36)
[2018-04-10] MEDS ORDERED: Lidocaine PF 1% Inj 5 ML Syringe OTHER ONE (11:36)
[2018-04-10] MEDS ORDERED: Succinylcholine Inj 100 MG/5 ML Syringe IV.PUSH ONE (11:36)
[2018-04-10] MEDS ORDERED: Sod Chloride 0.9% Inj 1,000 ML IV.CONT ONE (11:36)
[2018-04-10 11:45] LABS: Calcium 9.1 mg/dL (8.5-10.1); Carbon Dioxide 24.5 meq/L (21.0-32.0); Potassium 3.9 meq/L (3.5-5.1)
[2018-04-10] MEDS: Dextrose 5%/NaCl 0.45% Inj 1,000 ML IV.CONT SCH ×2 (12:49→18:02)
[2018-04-10] MEDS ORDERED: niCARdipine Inj 25 MG/10 ML Vial ONE (13:01)
[2018-04-10 13:09] LABS: ABG Base Excess -1.5 mmol/L (-2-2); ABG PCO2 46 mmHg (38-42); ABG PO2 144 mmHG (61-120)
[2018-04-10 13:09] LABS: Mean Corpuscular HGB Conc 33.5 % (32.0-36.0); Mean Corpuscular Hemoglobin 29.1 pg (27.0-34.0); Mean Corpuscular Volume 86.9 fL (80.0-100.0); Mean Platelet Volume 7.9 fL (7.0-11.0); Platelet Count 97 th/mm3 (150-450); Red Blood Count 2.37 mil/mm3 (4.50-5.90); White Blood Count 10.6 th/mm3 (4.0-11.0)
[2018-04-10 13:12] LABS: Hemoglobin 6.9 gm/dL (13.0-17.0)
[2018-04-10 13:13] LABS: Hematocrit 20.6 % (39.0-51.0)
[2018-04-10] MEDS ORDERED: Propofol 1000 mg/100 ml Inj 1,000 MG/100 ML BOTTLE ONE (14:05)
--- NOTE | 2018-04-10 14:08 | P.BOP ---
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
--- NOTE | 2018-04-10 14:11 | P.OP ---
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 Surgeon: Narayan Healy MD Operation and Findings: Informed consent was obtained from the patient prior to surgery. Recipient was brought into the OR and safely placed under general endotracheal anesthesia after the debriefing was performed. The patient had a Goldman catheter in place. An arterial line and an NG tube was placed by the anesthesia staff. The abdomen was prepped and draped in the usual sterile fashion. We then did our standard surgical time out, reviewing the patient, allergies, antibiotics, and the operation to be performed. All agreed and we proceeded. We re-opened the right lower quadrant incision. We had no active extravasation of blood noted upon entry into the subfascial space. We noted that there was an extensive amount of clot surrounding the kidney. We placed a Bookwalter retractor and obtained good exposure of the kidney, some adjustment were made during the case as needed. We then carefully evacuated the clot that was present and the irrigated the wound. We assured hemostasis in some areas of "oozing" with cautery and clips as needed. We were able to identify the venous anastomosis. No active bleeding was noted. We identified the arterial anastomosis. In the anteromedial aspect there was a single 2-3 mm area that seemed to have some pulsatile evacuation of blood. We were able to secure hemostasis there with a single 5-0 prolene U stitch. . Further exploration only revealed some nonspecific oozing in the superior deep aspect of the wound bed. Utilizing select electrocautery and clips, we were able to secure hemostasis. Dr Reyes, then scrubbed out of the case at this point. We explored the wound further and opted not to leave a drain as the wound seemed fairly "dry". We did leave some surgicel and surgi-snow in the wound bed. We verified that the the vessels were laying nicely, with no signs of any obstruction to either inflow or outflow. There was a good pulse in distal external iliac artery also as well as the renal artery. We went ahead and did the count as we prepared to close the fascia. The count was correct. We went ahead and closed the fascia with running #1 PDS suture starting from each end of the wound and tying in the middle. We then closed the skin with yasmin. A Primapore dressing was then applied. The patient tolerated the procedure well. We had final instrument and sponge counts correct times two.
[2018-04-10] MEDS ORDERED: fentaNYL 10 mcg/mL Premix Drip 2,500 MCG/250 ML BAG ONE (15:00)
[2018-04-10 15:29] LABS: INR 1.2 Ratio
[2018-04-10] MEDS ORDERED: Dexmedetomidine Inj 200 MCG/2 ML Vial ONE (15:42)
[2018-04-10] MEDS ORDERED: Sodium Chlor 0.9% Inj 50 ML ONE (15:43)
--- NOTE | 2018-04-10 15:43 | US ---
EXAM DATE: 04/10/2018 3:39 PM EST AGE/SEX: 32 years / Male INDICATIONS: Post Op. CLINICAL DATA: This is the patient's subsequent encounter. Patient reports that signs and symptoms h ave been present for 1 week and indicates a pain score of Nonresponsive. MEDICAL/SURGICAL HISTORY: . Left arm arteriovenous fistula for hemodialysis in place, primary. Glomerulonephritis, focal sclerosing. Hypertension. Renal disease, end stage. . Renal transplant 03/19. Appendectomy. Inguinal hernia repair, right. Right renal biopsy. [place] [facility] [place]. . MEASUREMENTS: Transplant Kidney:__12.7 x 6.6 x 6.1 cm Location:__Right lower quadrant Arcuate Arteries Resistive Index: Upper - 0.7 Mid - 0.7 Lower - 0.7 Main Renal Artery Velocity:__239.4 cm/sec Main Renal Vein:__Patent External Iliac Artery Velocity:__176.1 cm/sec External Iliac Vein:__Patent FINDINGS: Transplant Kidney: Right lower quadrant transplant kidney in place. Normal echogenicity and cortical thickness. No mass or hydronephrosis. No peritransplant fluid. Urinary Bladder: Goldman catheter is present. Bladder decompressed. Other: None. CONCLUSION: 1. Unremarkable appearance of right lower quadrant transplant kidney without perioperative fluid col lection or hydronephrosis. 2. Slightly improved but persistently elevated main renal artery velocities. Electronically signed by: Tyrell Case MD Board Certified Radiologist 04/10/2018 3:42 PM EST
[2018-04-10] MEDS: Dexmedetomidine Inj 200 MCG in Sodium Chlor 0.9% Inj 50 ML IV.CONT PRN ×4 (16:00→23:11)
[2018-04-10] MEDS ORDERED: MethylPREDNISolone Sod Succinate Inj 125 MG/2 ML Vial IV.PUSH ONE (16:00)
[2018-04-10] MEDS: Labetalol HCl Inj 20 MG/4 ML Vial IV.PUSH PRN (16:10)
[2018-04-10] MEDS: Clevidipine Inj 25 MG/50 ML VIAL IV.CONT PRN ×6 (16:30→23:56)
[2018-04-10] MEDS ORDERED: fentaNYL 10 mcg/mL Premix Drip 2,500 MCG/250 ML BAG IV.SIG PRN (16:57)
[2018-04-10] MEDS ORDERED: Propofol 1000 mg/100 ml Inj 1,000 MG/100 ML BOTTLE IV.CONT PRN (16:58)
[2018-04-10 18:18] LABS: Baso # (Auto) 0.1 th/mm3 (0.0-0.2); Baso % (Auto) 0.9 % (0.0-2.0); Eos % (Auto) 0.2 % (0.0-4.0); Hematocrit 25.5 % (39.0-51.0); Hemoglobin 8.9 gm/dL (13.0-17.0); Lymph # (Auto) 0.1 th/mm3 (1.0-4.8); Lymph % (Auto) 0.6 % (9.0-44.0); Mean Corpuscular HGB Conc 34.9 % (32.0-36.0); Mean Corpuscular Hemoglobin 29.2 pg (27.0-34.0); Mean Corpuscular Volume 83.6 fL (80.0-100.0); Mean Platelet Volume 7.4 fL (7.0-11.0); Mono # (Auto) 0.8 th/mm3 (0.0-0.9); Mono % (Auto) 7.3 % (0.0-8.0); Neut # (Auto) 9.4 th/mm3 (1.8-7.7); Platelet Count 105 th/mm3 (150-450); Red Blood Count 3.04 mil/mm3 (4.50-5.90); Red Cell Distribution Width 15.5 % (11.6-17.2); White Blood Count 10.4 th/mm3 (4.0-11.0)
[2018-04-10 18:40] LABS: Calcium 7.7 mg/dL (8.5-10.1); Carbon Dioxide 26.4 meq/L (21.0-32.0); Magnesium 2.1 mg/dL (1.5-2.5); Phosphorus 4.5 mg/dL (2.5-4.9); Potassium 3.7 meq/L (3.5-5.1)
--- NOTE | 2018-04-10 19:36 | P.PNNP ---
Subjective Interval history: Patient had bleeding around the anastomosis and went to the OR operative note seen patient is now in the room recovering Physical Exam Vital signs: Vital Signs 04/09/18 20:00 04/09/18 20:30 04/10/18 00:00 Temperature 98.9 F 99.0 F Pulse Rate 111 H 110 H Respiratory Rate 20 Blood Pressure 156/78 H 160/76 H Pulse Oximetry 92 L 94 L 99 04/10/18 04:00 04/10/18 07:00 04/10/18 07:25 Temperature 98.5 F 99 F Pulse Rate 105 H 106 H Respiratory Rate 22 18 Blood Pressure 158/82 H 158/83 H Pulse Oximetry 98 99 99 04/10/18 08:12 04/10/18 08:28 04/10/18 09:30 Temperature 99 F 99.4 F 99.4 F Pulse Rate 109 H 108 H 107 H Respiratory Rate 18 18 18 Blood Pressure 158/80 H 160/75 H 163/95 H Pulse Oximetry 99 98 98 04/10/18 12:49 04/10/18 14:23 04/10/18 16:00 Temperature 97.8 F Pulse Rate 99 H Respiratory Rate 18 22 18 Blood Pressure 168/91 H Pulse Oximetry 98 99 04/10/18 18:01 Temperature Pulse Rate Respiratory Rate 18 Blood Pressure Pulse Oximetry Intake & Output 04/10/18 04/10/18 04/11/18 06:59 18:59 06:59 Intake Total 4220 / 4220 6380 / 6380 1290 / 1290 Output Total 2655 / 2655 7295 / 7295 Balance 1565 / 1565 -915 / -915 1290 / 1290 Weight 83.1 kg Intake: IV 3740 / 3740 3860 / 3860 1290 / 1290 Cleviprex Inj 25 mg In 50 ml @ 50 / 50 1 MG/HR 2 mls/hr IV.CONT TITRATE PRN Rx#:[id number] Precedex Inj 200 MCG In NS Inj 50 / 50 50 ML @ 0.2 MCG/KG/HR 4.32 mls/ hr IV.CONT TITRATE PRN Rx#: [id number] D5W/1/2 NS Inj 1,000 ML @ 40 1000 / 1000 1000 / 1000 mls/hr IV.CONT .Q24H [facility] Rx#: [id number] Nitroglycerin Drip Premix 50 mg 250 / 250 500 / 500 In 250 ml @ 10 MCG/MIN 3 mls/ hr IV.CONT TITRATE PRN Rx#: [id number] Diprivan 1000 mg/100 ml Inj 1, 20 / 20 000 mg In 100 ml @ 5 MCG/KG/MIN 2.493 mls/hr IV.CONT TITRATE PRN Rx#:[id number] 1/2 Normal Saline Inj 1,000 ML 1999 / 1999 900 / 900 @ Per Protocol IV.CONT .Q0M PRN Rx#:[id number] Cardene Inj 25 MG In NS Inj 240 1490 / 1490 1250 / 1250 250 / 250 ML @ 5 MG/HR 50 mls/hr IV.CONT TITRATE PRN Rx#:[id number] Venofer Inj 200 MG In NS Inj 110 / 110 100 ML @ 110 mls/hr IV.SIG ONCE ONE Rx#:[id number] fentaNYL 10 mcg/mL Premix Drip 20 / 20 2,500 mcg In 250 ml @ 50 MCG/HR 5 mls/hr IV.SIG TITRATE PRN Rx #:[id number] Oral 480 / 480 120 / 120 Anesthesia Amount 1000 / 1000 Intake (Blood Product) Amt 400 / 400 Rbc As-3 Leukoreduced Unit 400 / 400 [id number] Mass Transfusion Protocol 1000 / 1000 Output: Estimated Blood Loss 500 / 500 Urine Amount (Catheter) 2655 / 2655 6495 / 6495 Indwelling Urethral Catheter 2655 / 2655 6495 / 6495 Gastric Drainage 300 / 300 Right Nare Nasogastric Tube 300 / 300 Other: # Bowel Movements 0 Narrative: GENERAL: Well-nourished, well-developed patient. SKIN: Warm and dry. HEAD: Normocephalic. EYES: No scleral icterus. No injection or drainage. NECK: Supple, trachea midline. No JVD or lymphadenopathy. CARDIOVASCULAR: Regular rate and rhythm without murmurs, gallops, or rubs. RESPIRATORY: Breath sounds equal bilaterally. No accessory muscle use. GASTROINTESTINAL: Abdomen soft, postsurgical dressing on the right lower abdomen , nondistended. EXTREMITIES: 1+ edema NEUROLOGICAL: Drowsy - Urinary Catheter Management Indwelling Urethral Catheter Cath placed during this visit: yes Urethral indwelling: Yes Reason for continuing: Hourly intake/output Insertion date: 04/08/18 Insertion time: 11:25 Assessment and Plan - Assessment (1) ESRD (end stage renal disease) on dialysis Code(s): N18.6 - End stage renal disease; Z99.2 - Dependence on renal dialysis Status: Chronic Plan: He had a kidney transplant patient has drop in hemoglobin due to blood loss hemoglobin was 4.9 Received more packed red blood cell currently at 8.[address] scan which showed small hematoma however high suspicion of bleeding Decided to reoperate He has a lesion on arterial anastomosis and this was secured Patient currently is stable creatinine did decline he is passing urine Apparently hypertensive and on Cleviprex drip Minoxidil increased to [address] Napoles Coreg 37.5 twice a day Amlodipine 10 mg daily Prograf increased to 5 mg twice daily tacrolimus levels less than 2 Increase minoxidil to 5 mg twice a day (2) HTN (hypertension) Code(s): I10 - Essential (primary) hypertension Status: Acute Qualifiers: Hypertension type: essential hypertension Qualified Code(s): I10 - Essential (primary) hypertension Plan: Continue to monitor blood pressure patient is on Cleviprex drip
[2018-04-10] MEDS ORDERED: Tacrolimus 0.5 MG Capsule PO ONE (20:00)
[2018-04-11 00:01] LABS: Hematocrit 24.5 % (39.0-51.0); Hemoglobin 8.8 gm/dL (13.0-17.0)
[2018-04-11] MEDS: Clevidipine Inj 25 MG/50 ML VIAL IV.CONT PRN ×17 (01:25→23:19)
[2018-04-11] MEDS: Dexmedetomidine Inj 200 MCG in Sodium Chlor 0.9% Inj 50 ML IV.CONT PRN ×9 (01:25→23:14)
[2018-04-11] MEDS: Nitroglycerin Drip Premix 50 MG/250 ML BOTTLE IV.CONT PRN ×3 (03:43→21:55)
[2018-04-11 05:11] LABS: Baso % (Auto) 0.3 % (0.0-2.0); Hematocrit 22.9 % (39.0-51.0); Hemoglobin 8.2 gm/dL (13.0-17.0); Lymph % (Auto) 0.5 % (9.0-44.0); Mean Corpuscular HGB Conc 35.6 % (32.0-36.0); Mean Corpuscular Hemoglobin 29.9 pg (27.0-34.0); Mean Corpuscular Volume 83.8 fL (80.0-100.0); Mean Platelet Volume 7.4 fL (7.0-11.0); Mono # (Auto) 0.3 th/mm3 (0.0-0.9); Mono % (Auto) 4.3 % (0.0-8.0); Neut # (Auto) 7.4 th/mm3 (1.8-7.7); Neut % (Auto) 94.9 % (16.0-70.0); Platelet Count 101 th/mm3 (150-450); Red Blood Count 2.73 mil/mm3 (4.50-5.90); Red Cell Distribution Width 15.3 % (11.6-17.2); White Blood Count 7.8 th/mm3 (4.0-11.0)
[2018-04-11 05:45] LABS: Calcium 8.4 mg/dL (8.5-10.1); Carbon Dioxide 28.1 meq/L (21.0-32.0); Phosphorus 4.5 mg/dL (2.5-4.9); Potassium 3.8 meq/L (3.5-5.1)
[2018-04-11] MEDS: hydrALAZINE HCl Inj 20 MG/ML Vial IV.PUSH PRN (06:19)
--- NOTE | 2018-04-11 08:26 | P.PNCC ---
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 He understands procedure April 08, 2018 without complications. He has been admitted to CVICU postprocedure with critical care consultation for better blood pressure management. 04/10: Hemoglobin dropped overnight requiring blood transfusion. Still remains on Cardene drip, no complaints 04/11: Young -[place] male appears ill. NG tube in place. Currently on Precedex for agitation. Refractory hypertension currently on Cleviprex infusion , nitroglycerin infusion. On multiple p.o. meds as well. 04/10 underwent wound exploration, evacuation of hematoma, suture repair of single area of anastomotic arterial hemorrhage. Hemoglobin stable. Objective Vital Signs / I&O: Vital Signs 04/10/18 08:28 04/10/18 09:30 04/10/18 12:49 Temperature 99.4 F 99.4 F Pulse Rate 108 H 107 H Respiratory Rate 18 18 18 Blood Pressure 160/75 H 163/95 H Pulse Oximetry 98 98 04/10/18 14:23 04/10/18 16:00 04/10/18 16:05 Temperature 97.8 F Pulse Rate 99 H Respiratory Rate 22 18 Blood Pressure 168/91 H Pulse Oximetry 98 99 95 04/10/18 18:01 04/10/18 19:00 04/10/18 20:00 Temperature 98.9 F Pulse Rate 102 H Respiratory Rate 18 22 Blood Pressure 156/85 H Pulse Oximetry 95 99 04/10/18 21:20 04/10/18 23:00 04/11/18 00:00 Temperature 98.6 F Pulse Rate 93 H Respiratory Rate 18 22 Blood Pressure 160/88 H Pulse Oximetry 98 96 04/11/18 01:15 04/11/18 03:00 04/11/18 04:00 Temperature 99.5 F Pulse Rate 92 H Respiratory Rate 18 22 Blood Pressure 146/82 H Pulse Oximetry 93 L 98 04/11/18 07:00 04/11/18 08:00 Temperature 99.1 F Pulse Rate 93 H Respiratory Rate 24 Blood Pressure 155/1 H Pulse Oximetry 97 97 Intake & Output 04/10/18 04/11/18 04/11/18 18:59 06:59 18:59 Intake Total 6380 / 6380 2540 / 2540 102 / 102 Output Total 7295 / 7295 4700 / 4700 405 / 405 Balance -915 / -915 -2160 / -2160 -303 / -303 Intake: IV 3860 / 3860 2420 / 2420 102 / 102 Cleviprex Inj 25 mg In 50 ml @ 50 / 50 380 / 380 50 / 50 1 MG/HR 2 mls/hr IV.CONT TITRATE PRN Rx#:[id number] Precedex Inj 200 MCG In NS Inj 50 / 50 250 / 250 52 / 52 50 ML @ 0.2 MCG/KG/HR 4.32 mls/ hr IV.CONT TITRATE PRN Rx#: [id number] D5W/1/2 NS Inj 1,000 ML @ 40 1000 / 1000 1000 / 1000 mls/hr IV.CONT .Q24H [facility] Rx#: [id number] Nitroglycerin Drip Premix 50 mg 500 / 500 500 / 500 In 250 ml @ 10 MCG/MIN 3 mls/ hr IV.CONT TITRATE PRN Rx#: [id number] Diprivan 1000 mg/100 ml Inj 1, 20 / 20 000 mg In 100 ml @ 5 MCG/KG/MIN 2.493 mls/hr IV.CONT TITRATE PRN Rx#:[id number] 1/2 Normal Saline Inj 1,000 ML 900 / 900 @ Per Protocol IV.CONT .Q0M [facility] Rx#:[id number] Cardene Inj 25 MG In NS Inj 240 1250 / 1250 250 / 250 ML @ 5 MG/HR 50 mls/hr IV.CONT TITRATE PRN Rx#:[id number] Venofer Inj 200 MG In NS Inj 110 / 110 100 ML @ 110 mls/hr IV.SIG ONCE ONE Rx#:[id number] fentaNYL 10 mcg/mL Premix Drip 20 / 20 2,500 mcg In 250 ml @ 50 MCG/HR 5 mls/hr IV.SIG TITRATE PRN Rx #:[id number] Oral 120 / 120 120 / 120 Anesthesia Amount 1000 / 1000 Intake (Blood Product) Amt 400 / 400 Rbc As-3 Leukoreduced Unit 400 / 400 [id number] Mass Transfusion Protocol 1000 / 999 Output: Estimated Blood Loss 500 / 500 Urine Amount (Catheter) 6495 / 6495 4700 / 4700 405 / 405 Indwelling Urethral Catheter 6495 / 6495 4700 / 4700 405 / 405 Gastric Drainage 300 / 300 Right Nare Nasogastric Tube 300 / 300 Result Diagrams: 04/11/18 04:55 04/11/18 04:55 Objective Remarks: - Constitutional Critically ill -[place] male, on Precedex for agitation - Routine HEENT Exam Head: Present: normocephalic, atraumatic Eye: Present: PERRL, normal accommodation ENT: Present: mucous membranes moist - Routine Neck Exam Present: supple, full ROM. Absent: JVD, carotid bruit - Routine Respiratory Exam Absent: accessory muscle use, wheezes, crackles. Few coarse rhonchi bilateral - Routine Cardiovascular Exam Present: RRR, S1, S2. Severely hypertensive currently on Cleviprex and nitroglycerin infusions. Conducted murmur from AV fistula - Routine Abdominal Exam Present: soft, normoactive bowel sounds - Routine Skin Exam Present: intact. Absent: cyanosis, erythema. Left upper extremity AV fistula which is pulsatile bruit present - Routine Neurological Exam Patient is currently sedated with Precedex. However wakes up easily follows commands. No focal deficits. Assessment and Plan - Assessment and Plan Plan: Focal sclerosing glomerulonephritis/ESRD -Status post renal transplant 04/08/18 -continue Cellcept, Prograf -Avoid nephrotoxins. -Further management per nephrology and transplant surgery -pain control as needed. Postop blood loss anemia -Transfuse to keep hemoglobin more than 8 -04/10 underwent wound exploration, evacuation of hematoma, suture repair of single area of anastomotic arterial hemorrhage. Hemoglobin stable. -transfused with PRBC 04/09 Uncontrolled hypertension/hypertensive emergency - Currently on Cleviprex and nitroglycerin infusions - continue Coreg, Norvasc, - Increase clonidine to 0.3 mg q6h - Increase hydralazine p.o. 200 mg every 8 - Increase minoxidil to 10 mg 8h - Labetalol, hydralazine, Cleviprex, nitroglycerin drip as needed to keep SBP less than 150 Anemia -post-op -End-stage renal disease -We will monitor H&H and transfuse as needed to keep hemoglobin above 7 DVT prophylaxis- SCD's -Pharmacological DVT prophylaxis hold due post op anemia and bleeding CCT 35 MIN Patient is very critical with uncontrolled hypertension. Currently on Cleviprex and nitroglycerin infusions. I have increased multiple p.o. blood pressure medications. He is encephalopathy currently on Precedex. He is at acute risk of vascular and neuro decompensation
[2018-04-11] MEDS ORDERED: Hydrocortisone Sod Succinate 100 MG Vial IV.PUSH PRN (08:50)
--- NOTE | 2018-04-11 08:53 | XR ---
EXAM DATE: 04/11/2018 8:49 AM EST AGE/SEX: 32 years / Male INDICATIONS: Respiratory status. CLINICAL DATA: This is the patient's subsequent encounter. Patient reports that signs and symptoms h ave been present for 2 days and indicates a pain score of 8/10. MEDICAL/SURGICAL HISTORY: . Left arm arteriovenous fistula for hemodialysis in place, primary. Glomerulonephritis, focal sclerosing. Hypertension. Renal disease, end stage. . Renal transplant 04/08. Appendectomy. Inguinal hernia repair, right. Right renal biopsy. . COMPARISON: C, CHEST 1V SINGLE AP, 04/08/2018. . FINDINGS: Nasogastric tube across the GE junction. Central venous catheters in expected location of the superio r vena cava The heart is enlarged with increasing interstitial edema and bibasilar parenchymal changes. There is no pneumothorax or pleural effusion. CONCLUSION: Cardiomegaly with increasing interstitial edema and bibasilar parenchymal changes Electronically signed by: Rafat Roa MD Board Certified Radiologist 04/11/2018 8:52 AM EST
--- NOTE | 2018-04-11 08:56 | XR ---
EXAM DATE: 04/11/2018 8:51 AM EST AGE/SEX: 32 years / Male INDICATIONS: Abdominal pain post right renal transplant. CLINICAL DATA: This is the patient's initial encounter. Patient reports that signs and symptoms have been present for 3 days and indicates a pain score of 8/10. MEDICAL/SURGICAL HISTORY: . Left arm arteriovenous fistula for hemodialysis in place, primary. Glomerulonephritis, focal sclerosing. Hypertension. Renal disease, end stage. . Renal transplant 04/08. Appendectomy. Inguinal hernia repair, right. Right renal biopsy. . COMPARISON[place] [facility] [place]AST, 04/10/2018. . FINDINGS: There is a right-sided stent in place thought to represent a ureteral stent in the transplanted righ t kidney. Clips are seen in the right lower abdomen and pelvis. Skin yasmin are seen over the right side. The bowel gas pattern is unremarkable. The bony structures are intact. CONCLUSION: Right transplant kidney with ureteral stent in place. Electronically signed by: Filiberto Guy MD Board Certified Radiologist 04/11/2018 8:54 AM EST
[2018-04-11] MEDS: hydrALAZINE 50 MG Tablet PO SCH ×2 (09:19→18:16)
[2018-04-11] MEDS: amLODIPine 10 MG Tablet PO SCH (09:20)
[2018-04-11] MEDS: Pantoprazole Inj 40 MG Vial IV.PUSH SCH (09:20)
[2018-04-11] MEDS: Carvedilol 12.5 MG Tablet PO SCH ×2 (09:20→20:49)
--- NOTE | 2018-04-11 09:20 | P.PNNP ---
Subjective Interval history: overnight remain under sedation pain control BP high required adjustment in his medications Physical Exam Vital signs: Vital Signs 04/10/18 09:30 04/10/18 12:49 04/10/18 14:23 Temperature 99.4 F Pulse Rate 107 H Respiratory Rate 18 18 22 Blood Pressure 163/95 H Pulse Oximetry 98 98 04/10/18 16:00 04/10/18 16:05 04/10/18 18:01 Temperature 97.8 F Pulse Rate 99 H Respiratory Rate 18 18 Blood Pressure 168/91 H Pulse Oximetry 99 95 04/10/18 19:00 04/10/18 20:00 04/10/18 21:20 Temperature 98.9 F Pulse Rate 102 H Respiratory Rate 22 18 Blood Pressure 156/85 H Pulse Oximetry 95 99 04/10/18 23:00 04/11/18 00:00 04/11/18 01:15 Temperature 98.6 F Pulse Rate 93 H Respiratory Rate 22 18 Blood Pressure 160/88 H Pulse Oximetry 98 96 04/11/18 03:00 04/11/18 04:00 04/11/18 07:00 Temperature 99.5 F 99.1 F Pulse Rate 92 H 93 H Respiratory Rate 22 24 Blood Pressure 146/82 H 155/1 H Pulse Oximetry 93 L 98 97 04/11/18 08:00 Temperature Pulse Rate Respiratory Rate Blood Pressure Pulse Oximetry 97 Intake & Output 04/10/18 04/11/18 04/11/18 18:59 06:59 18:59 Intake Total 6380 / 6380 2540 / 2540 152 / 152 Output Total 7295 / 7295 4700 / 4700 585 / 585 Balance -915 / -915 -2160 / -2160 -433 / -433 Intake: IV 3860 / 3860 2420 / 2420 152 / 152 Cleviprex Inj 25 mg In 50 ml @ 50 / 50 380 / 380 100 / 100 1 MG/HR 2 mls/hr IV.CONT TITRATE PRN Rx#:[id number] Precedex Inj 200 MCG In NS Inj 50 / 50 250 / 250 52 / 52 50 ML @ 0.2 MCG/KG/HR 4.32 mls/ hr IV.CONT TITRATE PRN Rx#: [id number] D5W/1/2 NS Inj 1,000 ML @ 40 1000 / 1000 1000 / 1000 mls/hr IV.CONT .Q24H [facility] Rx#: [id number] Nitroglycerin Drip Premix 50 mg 500 / 500 500 / 500 In 250 ml @ 10 MCG/MIN 3 mls/ hr IV.CONT TITRATE PRN Rx#: [id number] Diprivan 1000 mg/100 ml Inj 1, 20 / 20 000 mg In 100 ml @ 5 MCG/KG/MIN 2.493 mls/hr IV.CONT TITRATE PRN Rx#:[id number] 1/2 Normal Saline Inj 1,000 ML 900 / 900 @ Per Protocol IV.CONT .Q0M PRN Rx#:[id number] Cardene Inj 25 MG In NS Inj 240 1250 / 1250 250 / 250 ML @ 5 MG/HR 50 mls/hr IV.CONT TITRATE PRN Rx#:[id number] Venofer Inj 200 MG In NS Inj 110 / 110 100 ML @ 110 mls/hr IV.SIG ONCE ONE Rx#:[id number] fentaNYL 10 mcg/mL Premix Drip 20 / 20 2,500 mcg In 250 ml @ 50 MCG/HR 5 mls/hr IV.SIG TITRATE PRN Rx #:[id number] Oral 120 / 120 120 / 120 Anesthesia Amount 1000 / 1000 Intake (Blood Product) Amt 400 / 400 Rbc As-3 Leukoreduced Unit 400 / 400 [id number] Mass Transfusion Protocol 1000 / 1000 Output: Estimated Blood Loss 500 / 500 Urine Amount (Catheter) 6495 / 6495 4700 / 4700 585 / 585 Indwelling Urethral Catheter 6495 / 6495 4700 / 4700 585 / 585 Gastric Drainage 300 / 300 Right Nare Nasogastric Tube 300 / 300 Narrative: GENERAL: Well-nourished, well-developed patient. SKIN: Warm and dry. HEAD: Normocephalic. EYES: No scleral icterus. No injection or drainage. NECK: Supple, trachea midline. No JVD or lymphadenopathy. CARDIOVASCULAR: Regular rate and rhythm without murmurs, gallops, or rubs. RESPIRATORY: Breath sounds equal bilaterally. No accessory muscle use. GASTROINTESTINAL: Abdomen soft, postsurgical dressing on the right lower abdomen , nondistended. EXTREMITIES: 1+ edema NEUROLOGICAL: Drowsy - Urinary Catheter Management Indwelling Urethral Catheter Cath placed during this visit: yes Urethral indwelling: Yes Reason for continuing: Hourly intake/output Insertion date: 04/08/18 Insertion time: 11:25 Assessment and Plan - Assessment (1) ESRD (end stage renal disease) on dialysis Code(s): N18.6 - End stage renal disease; Z99.2 - Dependence on renal dialysis Status: Chronic Plan: He had a kidney transplant patient has drop in hemoglobin due to blood loss hemoglobin was 4.9 Received more packed red blood cell currently at 8.[address] scan which showed small hematoma however high suspicion of bleeding Decided to reoperate He has a pin hole opening on arterial anastomosis and this was secured Patient currently is stable creatinine did decline he is passing urine Apparently hypertensive and on Cleviprex drip Minoxidil increased to 10 mg q 8, clonidine 0.[address] Filiberto Garcia 37.5 twice a day Amlodipine 10 mg daily Prograf increased to 5 mg BID tacrolimus levels 2.7 (2) HTN (hypertension) Code(s): I10 - Essential (primary) hypertension Status: Acute Qualifiers: Hypertension type: essential hypertension Qualified Code(s): I10 - Essential (primary) hypertension Plan: Continue to monitor blood pressure patient is on Cleviprex drip adjustment in oral medications as above
--- NOTE | 2018-04-11 09:54 | P.DIET ---
Nutritional Evaluation Type of nutrition evaluation: follow-up Screening comments: Nutrition Assessment s/p Kidney Transplantation on 04/08/18 Objective - Diagnosis ESRD/Kidney Transplant - Objective % IBW: 90 (IBW: 83.6kg) Body Weight Used for Calculations: Actual Energy Needs - Lower Range (kCal/kg): 28 Energy Needs - Upper Range (kCal/kg): 33 Lower Limit kCal/kg (kCals): 2,103 Upper Limit kCal/kg (kCals): 2,478 Lower Limit Protein Factor (Grams per Kg): 1.2 Upper Limit Protein Factor (Grams per Kg): 1.5 Lower Protein Needs (Protein): 90 Upper Protein Needs (Protein): 113 Dietitian Reviewed in Medical Record: Curent medications, Intake & Output, Labs , Medical history Diet Order: NPO Objective Comments: Labs include: Cr 2.49, eGFR 37, K+ and phosphorus within normal limits. Assessment Assessment: Pt at nutritional risk r/t current clinical status. Pt remains NPO with NG tube. Noted pt was brought back to surgery r/t hematoma. UOP is improving, Cr is coming down, phos and K+ are WNL. Pt sedated for agitation, BP remains high. Pt is unable to be educated at this time. Will follow pt's clinical course with the transplant team, educate prior to discharge. Dietitian to Monitor: Lab values, Intake & Output, Weight change, Diet advancement, Medical course
--- NOTE | 2018-04-11 09:57 | P.PNTS ---
Subjective Interval history: sedate, but easily arousable. Physical Exam Vital signs: Vital Signs 04/10/18 12:49 04/10/18 14:23 04/10/18 16:00 Temperature 97.8 F Pulse Rate 99 H Respiratory Rate 18 22 18 Blood Pressure 168/91 H Pulse Oximetry 98 99 04/10/18 16:05 04/10/18 18:01 04/10/18 19:00 Temperature 98.9 F Pulse Rate 102 H Respiratory Rate 18 22 Blood Pressure 156/85 H Pulse Oximetry 95 95 04/10/18 20:00 04/10/18 21:20 04/10/18 23:00 Temperature 98.6 F Pulse Rate 93 H Respiratory Rate 18 22 Blood Pressure 160/88 H Pulse Oximetry 99 98 04/11/18 00:00 04/11/18 01:15 04/11/18 03:00 Temperature 99.5 F Pulse Rate 92 H Respiratory Rate 18 22 Blood Pressure 146/82 H Pulse Oximetry 96 93 L 04/11/18 04:00 04/11/18 07:00 04/11/18 08:00 Temperature 99.1 F Pulse Rate 93 H Respiratory Rate 24 Blood Pressure 155/1 H Pulse Oximetry 98 97 97 Intake & Output 04/10/18 04/11/18 04/11/18 18:59 06:59 18:59 Intake Total 6380 / 6380 2540 / 2540 152 / 152 Output Total 7295 / 7295 4700 / 4700 585 / 585 Balance -915 / -915 -2160 / -2160 -433 / -433 Weight 81.7 kg Intake: IV 3860 / 3860 2420 / 2420 152 / 152 Cleviprex Inj 25 mg In 50 ml @ 50 / 50 380 / 380 100 / 100 1 MG/HR 2 mls/hr IV.CONT TITRATE PRN Rx#:[id number] Precedex Inj 200 MCG In NS Inj 50 / 50 250 / 250 52 / 52 50 ML @ 0.2 MCG/KG/HR 4.32 mls/ hr IV.CONT TITRATE PRN Rx#: [id number] D5W/1/2 NS Inj 1,000 ML @ 40 1000 / 1000 1000 / 1000 mls/hr IV.CONT .Q24H [facility] Rx#: [id number] Nitroglycerin Drip Premix 50 mg 500 / 500 500 / 500 In 250 ml @ 10 MCG/MIN 3 mls/ hr IV.CONT TITRATE PRN Rx#: [id number] Diprivan 1000 mg/100 ml Inj 1, 20 / 20 000 mg In 100 ml @ 5 MCG/KG/MIN 2.493 mls/hr IV.CONT TITRATE PRN Rx#:[id number] 1/2 Normal Saline Inj 1,000 ML 900 / 900 @ Per Protocol IV.CONT .Q0M PRN Rx#:[id number] Cardene Inj 25 MG In NS Inj 240 1250 / 1250 250 / 250 ML @ 5 MG/HR 50 mls/hr IV.CONT TITRATE PRN Rx#:[id number] Venofer Inj 200 MG In NS Inj 110 / 110 100 ML @ 110 mls/hr IV.SIG ONCE ONE Rx#:[id number] fentaNYL 10 mcg/mL Premix Drip 20 / 20 2,500 mcg In 250 ml @ 50 MCG/HR 5 mls/hr IV.SIG TITRATE PRN Rx #:[id number] Oral 120 / 120 120 / 120 Anesthesia Amount 1000 / 1000 Intake (Blood Product) Amt 400 / 400 Rbc As-3 Leukoreduced Unit 400 / 400 [id number] Mass Transfusion Protocol 1000 / 1000 Output: Estimated Blood Loss 500 / 500 Urine Amount (Catheter) 6495 / 6495 4700 / 4700 585 / 585 Indwelling Urethral Catheter 6495 / 6495 4700 / 4700 585 / 585 Gastric Drainage 300 / 300 Right Nare Nasogastric Tube 300 / 300 - Constitutional no acute distress - Routine HEENT Exam Head: Present: normocephalic, atraumatic Eye: Present: EOMI ENT: Present: mucous membranes moist - Routine Neck Exam Present: supple - Routine Respiratory Exam Present: CTA bilaterally - Routine Cardiovascular Exam Present: RRR, S1, S2, murmur - Routine Abdominal Exam Present: soft, normoactive bowel sounds - Routine Extremities Exam Present: pulses intact - Routine Skin Exam Present: intact - Routine Neurological Exam Present: alert, oriented X3 - Detailed Neurological Exam: Coma Scale Verbal Response: Oriented - Routine Psychiatric Exam Present: normal affect, normal thought process - Urinary Catheter Management Indwelling Urethral Catheter Cath placed during this visit: yes Urethral indwelling: Yes Reason for continuing: Hourly intake/output Insertion date: 04/08/18 Insertion time: 11:25 Results - Labs CBC & Chem 7: 04/11/18 04:55 04/11/18 04:55 Laboratory Results - last 24 hr 04/10/18 04/10/18 04/10/18 05:15 07:20 10:35 WBC 11.3 H RBC 2.11 L Hgb 6.0 L* Hct 18.1 L* MCV 85.7 MCH 28.5 MCHC 33.3 RDW 15.4 Plt Count 90 L MPV 8.1 Neut % (Auto) Lymph % (Auto) Smyth % (Auto) Eos % (Auto) Baso % (Auto) Neut # (Auto) Lymph # (Auto) Smyth # (Auto) Eos # (Auto) Baso # (Auto) WBC Differential Differential Comment PT INR APTT Puncture Site Patient Temperature O2 Saturation ABG pH ABG pCO2 ABG pO2 ABG HCO3 ABG O2 Content ABG Base Excess ABG Methemoglobin Tejas Test Hemoglobin Carboxyhemoglobin O2 Delivery Device Critical Value Sodium Potassium Chloride Carbon Dioxide Anion Gap BUN Creatinine Estimated GFR POC Glucose Random Glucose Calcium Phosphorus Magnesium Tacrolimus Less than 2.0 L Blood Type O Positive Antibody Screen Negative MTS Gel Crossmatch See Detail Bld Prod Order Comment 04/10/18 04/10/18 04/10/18 10:35 10:35 11:01 WBC RBC Hgb Hct MCV MCH MCHC RDW Plt Count MPV Neut % (Auto) Lymph % (Auto) Smyth % (Auto) Eos % (Auto) Baso % (Auto) Neut # (Auto) Lymph # (Auto) Smyth # (Auto) Eos # (Auto) Baso # (Auto) WBC Differential Differential Comment PT INR APTT 30.3 Puncture Site Patient Temperature O2 Saturation ABG pH ABG pCO2 ABG pO2 ABG HCO3 ABG O2 Content ABG Base Excess ABG Methemoglobin Tejas Test Hemoglobin Carboxyhemoglobin O2 Delivery Device Critical Value Sodium 139 Potassium 3.9 Chloride 105 Carbon Dioxide 24.5 Anion Gap 10 BUN 51 H Creatinine 3.47 H Estimated GFR 25 L POC Glucose Random Glucose 92 Calcium 9.1 D Phosphorus Magnesium Tacrolimus Blood Type Antibody Screen MTS Gel Crossmatch See Detail Bld Prod Order Comment 04/10/18 04/10/18 04/10/18 11:28 12:50 12:50 WBC 10.6 RBC 2.37 L Hgb 6.9 L* Hct 20.6 L* MCV 86.9 MCH 29.1 MCHC 33.5 RDW 15.0 Plt Count 97 L MPV 7.9 Neut % (Auto) Lymph % (Auto) Smyth % (Auto) Eos % (Auto) Baso % (Auto) Neut # (Auto) Lymph # (Auto) Smyth # (Auto) Eos # (Auto) Baso # (Auto) WBC Differential Differential Comment PT INR APTT 35.4 H Puncture Site Patient Temperature O2 Saturation ABG pH ABG pCO2 ABG pO2 ABG HCO3 ABG O2 Content ABG Base Excess ABG Methemoglobin Tejas Test Hemoglobin Carboxyhemoglobin O2 Delivery Device Critical Value Sodium Potassium Chloride Carbon Dioxide Anion Gap BUN Creatinine Estimated GFR POC Glucose Random Glucose Calcium Phosphorus Magnesium Tacrolimus Blood Type Antibody Screen MTS Gel Crossmatch Bld Prod Order Comment 04/10/18 04/10/18 04/10/18 12:50 13:02 17:55 WBC 10.4 RBC 3.04 L Hgb 8.9 L D Hct 25.5 L MCV 83.6 MCH 29.2 MCHC 34.9 RDW 15.5 Plt Count 105 L MPV 7.4 Neut % (Auto) 91.0 H Lymph % (Auto) 0.6 L Smyth % (Auto) 7.3 Eos % (Auto) 0.2 Baso % (Auto) 0.9 Neut # (Auto) 9.4 H Lymph # (Auto) 0.1 L Smyth # (Auto) 0.8 Eos # (Auto) 0.0 Baso # (Auto) 0.1 WBC Differential . Differential Comment Auto diff final PT 12.0 H INR 1.2 APTT Puncture Site Drawn in or Patient Temperature 98.6 O2 Saturation 96 ABG pH 7.33 L ABG pCO2 46 H ABG pO2 144 H ABG HCO3 24 ABG O2 Content 11.4 L ABG Base Excess -1.5 ABG Methemoglobin 2.1 H Tejas Test Present Hemoglobin 8.3 L Carboxyhemoglobin 1.1 O2 Delivery Device Or gas Critical Value No Sodium Potassium Chloride Carbon Dioxide Anion Gap BUN Creatinine Estimated GFR POC Glucose Random Glucose Calcium Phosphorus Magnesium Tacrolimus Blood Type Antibody Screen MTS Gel Crossmatch Bld Prod Order Comment 04/10/18 04/10/18 04/11/18 17:55 23:45 01:40 WBC RBC Hgb 8.8 L Hct 24.5 L MCV MCH MCHC RDW Plt Count MPV Neut % (Auto) Lymph % (Auto) Smyth % (Auto) Eos % (Auto) Baso % (Auto) Neut # (Auto) Lymph # (Auto) Smyth # (Auto) Eos # (Auto) Baso # (Auto) WBC Differential Differential Comment PT INR APTT Puncture Site Patient Temperature O2 Saturation ABG pH ABG pCO2 ABG pO2 ABG HCO3 ABG O2 Content ABG Base Excess ABG Methemoglobin Tejas Test Hemoglobin Carboxyhemoglobin O2 Delivery Device Critical Value Sodium 141 Potassium 3.7 Chloride 105 Carbon Dioxide 26.4 Anion Gap 10 BUN 51 H Creatinine 3.17 H Estimated GFR 28 L POC Glucose 124 H Random Glucose 93 Calcium 7.7 L D Phosphorus 4.5 Magnesium 2.1 Tacrolimus Blood Type Antibody Screen MTS Gel Crossmatch Bld Prod Order Comment 04/11/18 04/11/18 04/11/18 04:55 04:55 04:55 WBC 7.8 RBC 2.73 L Hgb 8.2 L Hct 22.9 L MCV 83.8 MCH 29.9 MCHC 35.6 RDW 15.3 Plt Count 101 L MPV 7.4 Neut % (Auto) 94.9 H Lymph % (Auto) 0.5 L Smyth % (Auto) 4.3 Eos % (Auto) 0.0 Baso % (Auto) 0.3 Neut # (Auto) 7.4 Lymph # (Auto) 0.0 L Smyth # (Auto) 0.3 Eos # (Auto) 0.0 Baso # (Auto) 0.0 WBC Differential . Differential Comment Auto diff final PT INR APTT Puncture Site Patient Temperature O2 Saturation ABG pH ABG pCO2 ABG pO2 ABG HCO3 ABG O2 Content ABG Base Excess ABG Methemoglobin Tejas Test Hemoglobin Carboxyhemoglobin O2 Delivery Device Critical Value Sodium 143 Potassium 3.8 Chloride 107 Carbon Dioxide 28.1 Anion Gap 8 BUN 45 H Creatinine 2.49 H Estimated GFR 37 L POC Glucose Random Glucose 120 H Calcium 8.4 L Phosphorus 4.5 Magnesium 2.4 Tacrolimus Blood Type Antibody Screen MTS Gel Crossmatch Bld Prod Order Comment - Imaging Impressions Abdomen/Pelvis CT 04/10/18 00:00 . CONCLUSION: 1. Transplant right lower quadrant a small hematoma adjacent to the upper pole the transplant. 2. I don't see evidence for a large hematoma to account for the dropped hematocrit. 3. This could easily be surveilled by ultrasound 4. Moderate free intraperitoneal fluid, low-density not felt to be blood. Renal Ultrasound 04/10/18 14:42 CONCLUSION: 1. Unremarkable appearance of right lower quadrant transplant kidney without perioperative fluid collection or hydronephrosis. 2. Slightly improved but persistently elevated main renal artery velocities. Abdomen X-Ray 04/11/18 00:00 CONCLUSION: Right transplant kidney with ureteral stent in place. 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 Allograft function: immediate. Immunosuppression: Thymoglobulin induction; Maint: steroids + Cellcept 1000 mg BID + Tacrolimus 5 mg BID Patient with refractory hypertension. Oral BP meds significantly increased this morning. Remains on an anti-hypertensive drips. Will wean as tolerated. Remains on anxiolytics (precedex drip and ativan). Tool Grinder Operator following. Hgb 8.2 , down from 8.8???. Will continue to monitor with serial hcts, for now. Further intervention as deemed warranted. Family was made aware, yesterday, of possible need for re-exploration of concerns for further bleeding persists. Will see how Hgb trends. Last dose of thymo to be administered today
[2018-04-11] MEDS ORDERED: Iron Sucrose Complex Inj 200 MG in Sodium Chlor 0.9% Inj 100 ML IV.SIG ONE (11:00)
[2018-04-11] MEDS: Minoxidil 10 MG Tablet PO SCH ×3 (11:10→21:48)
[2018-04-11] MEDS: Senna/Docusate Sodium 8.6/50 MG Tablet PO SCH ×2 (11:10→20:48)
[2018-04-11] MEDS: Docusate Sodium 100 MG Capsule PO SCH ×2 (11:11→20:48)
[2018-04-11] MEDS ORDERED: MethylPREDNISolone Sod Succinate Inj 125 MG/2 ML Vial IV.PUSH ONE (11:30)
[2018-04-11] MEDS ORDERED: Acetaminophen 325 MG Tablet PO ONE (11:30)
[2018-04-11] MEDS: HYDROmorphone PCA Inj 6 MG/30 ML PCA.VIAL PCA PRN ×2 (11:30→23:37)
[2018-04-11 11:54] LABS: Hematocrit 22.3 % (39.0-51.0); Hemoglobin 7.9 gm/dL (13.0-17.0)
[2018-04-11] MEDS ORDERED: SODIUM CHLOR 0.9% IV.SIG ONE ×2 (12:00→13:28)
[2018-04-11] MEDS ORDERED: ANTITHYMOCYTE IG IV.SIG ONE (12:00)
[2018-04-11] MEDS ORDERED: DESMOPRESSIN IV.SIG ONE (13:28)
[2018-04-11] MEDS ORDERED: Bisacodyl 10 MG Supp RECTAL PRN (13:52)
[2018-04-11] MEDS ORDERED: Desmopressin Inj 4 MCG/ML Ampul IV.PUSH ONE (15:00)
--- NOTE | 2018-04-11 16:05 | DRUGHERB ---
Alex Masseyry III 1985 [id number] Post-op Day #3: Reviewed patient profile and recommended the following: * Thymoglobulin today, final dose of 1.5mg/kg IBW for a total of 125mg. * Solumedrol 60mg IV today per protocol. * Continue Cellcept 1000mg PO BID * Continue tacrolimus, might increase dose if levels is low * Hold prophylaxis meds and consider start prior discharge * BP elevated, all hypertensive PO meds adjusted for SBP control below 150 * Noted HR in the 90s with coreg on board, hydralazine optimized to max dose of 300mg/day which might exacerbate tachycardia. Recommended to monitor HR and adjust dose of coreg or decrease hydralazine if elevated HR is noted. * Might consider weaning down Cleviprex and nitroglycerin drip * Pain is well tolerated using Dilaudid EQUIPMENT SERVICE ASSOCIATE * Noted HGB trend down, might consider PRBC transfusion and iron sucrose 200mg. Isabel Mchugh, PharmD 04/11/17 15:00
[2018-04-11 23:50] LABS: Hematocrit 26.9 % (39.0-51.0); Hemoglobin 9.6 gm/dL (13.0-17.0)
[2018-04-12 00:18] LABS: Calcium 7.6 mg/dL (8.5-10.1); Carbon Dioxide 30.3 meq/L (21.0-32.0); Magnesium 2.3 mg/dL (1.5-2.5); Phosphorus 2.4 mg/dL (2.5-4.9); Potassium 3.5 meq/L (3.5-5.1)
[2018-04-12] MEDS: hydrALAZINE 50 MG Tablet PO SCH ×3 (00:53→16:50)
[2018-04-12] MEDS: Clevidipine Inj 25 MG/50 ML VIAL IV.CONT PRN ×8 (01:13→13:39)
[2018-04-12] MEDS: Dexmedetomidine Inj 200 MCG in Sodium Chlor 0.9% Inj 50 ML IV.CONT PRN (04:38)
[2018-04-12 05:42] LABS: Baso % (Auto) 0.5 % (0.0-2.0); Hematocrit 26.6 % (39.0-51.0); Hemoglobin 9.4 gm/dL (13.0-17.0); Lymph # (Auto) 0.2 th/mm3 (1.0-4.8); Lymph % (Auto) 2.2 % (9.0-44.0); Mean Corpuscular HGB Conc 35.3 % (32.0-36.0); Mean Corpuscular Hemoglobin 29.6 pg (27.0-34.0); Mean Corpuscular Volume 83.9 fL (80.0-100.0); Mean Platelet Volume 7.9 fL (7.0-11.0); Mono # (Auto) 0.5 th/mm3 (0.0-0.9); Mono % (Auto) 7.2 % (0.0-8.0); Neut # (Auto) 6.7 th/mm3 (1.8-7.7); Neut % (Auto) 90.1 % (16.0-70.0); Platelet Count 104 th/mm3 (150-450); Red Blood Count 3.17 mil/mm3 (4.50-5.90); Red Cell Distribution Width 15.2 % (11.6-17.2); White Blood Count 7.5 th/mm3 (4.0-11.0)
[2018-04-12 05:57] LABS: Calcium 8.1 mg/dL (8.5-10.1); Carbon Dioxide 31.1 meq/L (21.0-32.0); Magnesium 2.3 mg/dL (1.5-2.5); Phosphorus 2.1 mg/dL (2.5-4.9); Potassium 3.4 meq/L (3.5-5.1)
[2018-04-12] MEDS: Minoxidil 10 MG Tablet PO SCH ×3 (06:32→21:09)
[2018-04-12] MEDS: HYDROmorphone PCA Inj 6 MG/30 ML PCA.VIAL PCA PRN ×2 (07:49→13:50)
[2018-04-12] MEDS ORDERED: hydrALAZINE HCl Inj 20 MG/ML Vial IV.PUSH PRN (08:07)
--- NOTE | 2018-04-12 08:12 | P.PNCC ---
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 He understands procedure April 08, 2018 without complications. He has been admitted to CVICU postprocedure with critical care consultation for better blood pressure management. 04/10: Hemoglobin dropped overnight requiring blood transfusion. Still remains on Cardene drip, no complaints 04/11: Young -Swiss male appears ill. NG tube in place. Currently on Precedex for agitation. Refractory hypertension currently on Cleviprex infusion , nitroglycerin infusion. On multiple p.o. meds as well. 04/10 underwent wound exploration, evacuation of hematoma, suture repair of single area of anastomotic arterial hemorrhage. Hemoglobin stable. 04/12: Slightly improved blood pressure control however remains on Cleviprex and nitro infusions. I will further increase the clonidine and minoxidil. Mentation improved sitting up in bed. Objective Vital Signs / I&O: Vital Signs 04/11/18 11:00 04/11/18 12:00 04/11/18 13:45 Temperature 98.8 F Pulse Rate 92 H 90 Respiratory Rate 20 18 Blood Pressure 151/76 H Pulse Oximetry 97 97 97 04/11/18 14:00 04/11/18 14:15 04/11/18 14:59 Temperature 98.8 F 97.9 F Pulse Rate 91 H 93 H 91 H Respiratory Rate 18 14 20 Blood Pressure 147/79 H 147/79 H Pulse Oximetry 96 97 04/11/18 15:00 04/11/18 15:30 04/11/18 16:00 Temperature 97.9 F 98.2 F Pulse Rate 92 H 92 H Respiratory Rate 22 20 Blood Pressure 147/69 H Pulse Oximetry 96 04/11/18 19:00 04/11/18 19:20 04/11/18 20:13 Temperature 98.2 F 98.2 F Pulse Rate 93 H 93 H 94 H Respiratory Rate 18 18 Blood Pressure 149/78 H 143/76 H Pulse Oximetry 95 95 04/11/18 20:47 04/11/18 21:55 04/11/18 23:00 Temperature 98.2 F Pulse Rate 93 H 92 H Respiratory Rate 16 Blood Pressure 144/77 H Pulse Oximetry 95 95 04/11/18 23:44 04/12/18 01:00 04/12/18 03:00 Temperature 97.6 F Pulse Rate 93 H 91 H Respiratory Rate 20 Blood Pressure 148/80 H Pulse Oximetry 96 94 L 04/12/18 03:07 04/12/18 04:07 04/12/18 05:00 Temperature 98.2 F Pulse Rate 91 H Respiratory Rate 20 18 Blood Pressure 139/67 Pulse Oximetry 91 L 93 L Intake & Output 04/11/18 04/12/18 04/12/18 18:59 06:59 18:59 Intake Total 1728 / 1728 2512 / 2512 50 / 50 Output Total 3520 / 3520 7735 / 7735 Balance -1792 / -1792 -5223 / -5223 50 / 50 Weight 81.7 kg 80.7 kg Intake: IV 1268 / 1268 792 / 792 50 / 50 Cleviprex Inj 25 mg In 50 ml @ 450 / 450 400 / 400 50 / 50 1 MG/HR 2 mls/hr IV.CONT TITRATE PRN Rx#:[id number] Precedex Inj 200 MCG In NS Inj 208 / 208 142 / 142 50 ML @ 0.2 MCG/KG/HR 4.32 mls/ hr IV.CONT TITRATE PRN Rx#: [id number] Nitroglycerin Drip Premix 50 mg 250 / 250 In 250 ml @ 10 MCG/MIN 3 mls/ hr IV.CONT TITRATE PRN Rx#: [id number] Thymoglobulin Inj 125 MG In NS 500 / 500 Inj 500 ML @ 125 mls/hr IV.SIG ONCE ONE Rx#:[id number] Venofer Inj 200 MG In NS Inj 110 / 110 100 ML @ 110 mls/hr IV.SIG ONCE ONE Rx#:[id number] Oral 240 / 240 920 / 920 Water Bolus Amount 220 / 220 Intake (Blood Product) Amt 0 / 0 800 / 800 Rbc As-3 Leukoreduced Unit 0 / 0 400 / 400 [id number] Rbc As-3 Leukoreduced Unit 400 / 400 [id number] Output: Urine Amount (Catheter) 2920 / 2920 7735 / 7735 Indwelling Urethral Catheter 2920 / 2920 7735 / 7735 Gastric Drainage 600 / 600 Right Nare Nasogastric Tube 600 / 600 Result Diagrams: 04/12/18 05:13 04/12/18 05:13 Objective Remarks: - Constitutional Critically ill -Swiss male, on low-dose Precedex - Routine HEENT Exam Head: Present: normocephalic, atraumatic Eye: Present: PERRL, normal accommodation ENT: Present: mucous membranes moist - Routine Neck Exam Present: supple, full ROM. Absent: JVD, carotid bruit - Routine Respiratory Exam Absent: accessory muscle use, wheezes, crackles. Few coarse rhonchi bilateral - Routine Cardiovascular Exam Present: RRR, S1, S2. Hypertensive currently on Cleviprex and nitroglycerin infusions. Conducted murmur from AV fistula - Routine Abdominal Exam Present: soft, normoactive bowel sounds - Routine Skin Exam Present: intact. Absent: cyanosis, erythema. Left upper extremity AV fistula which is pulsatile bruit present - Routine Neurological Exam Patient is currently alert awake oriented follows commands. No focal deficits. Assessment and Plan - Assessment and Plan Plan: Uncontrolled hypertension/hypertensive emergency - Currently on Cleviprex and nitroglycerin infusions. Attempt weaning off Cleviprex - continue Coreg, Norvasc - Increase clonidine to 0.4 mg q6h - Increase minoxidil to 20 mg 8h - Hydralazine p.o. 200 mg every 8 - Labetalol, hydralazine, Cleviprex, nitroglycerin drip as needed to keep SBP less than 150 Focal sclerosing glomerulonephritis/ESRD -Status post renal transplant 04/08/18 -continue Cellcept, Prograf -Avoid nephrotoxins. -Further management per nephrology and transplant surgery -pain control as needed. Postop blood loss anemia -Transfuse to keep hemoglobin more than 8 -04/10 underwent wound exploration, evacuation of hematoma, suture repair of single area of anastomotic arterial hemorrhage. Hemoglobin stable. -transfused with PRBC 04/09 Anemia -post-op -End-stage renal disease -We will monitor H&H and transfuse as needed to keep hemoglobin above 7 DVT prophylaxis- SCD's -Pharmacological DVT prophylaxis hold due post op anemia and bleeding CCT 35 MIN Patient is very critical with uncontrolled hypertension. Currently on Cleviprex and nitroglycerin infusions. I have increased multiple p.o. blood pressure medications. He is encephalopathy currently on Precedex-we will wean to DC. He is at acute risk of hemodynamic and neuro decompensation
[2018-04-12] MEDS: Senna/Docusate Sodium 8.6/50 MG Tablet PO SCH ×2 (08:56→21:09)
[2018-04-12] MEDS: amLODIPine 10 MG Tablet PO SCH (08:56)
[2018-04-12] MEDS: Docusate Sodium 100 MG Capsule PO SCH ×2 (08:56→21:09)
[2018-04-12] MEDS: Carvedilol 12.5 MG Tablet PO SCH ×2 (08:56→21:09)
[2018-04-12] MEDS: Pantoprazole Inj 40 MG Vial IV.PUSH SCH (08:58)
--- NOTE | 2018-04-12 09:23 | P.DIET ---
Nutritional Evaluation Type of nutrition evaluation: follow-up Screening comments: Nutrition education and discharge planning s/p Kidney Transplantation POD#4 Subjective Subjective Comments: Patient states he tolerated his CL diet well, is ready to eat regular food. Verbalizes no complaints at this time. Objective - Diagnosis ESRD/Kidney Transplant - Objective % IBW: 90 (IBW: 83.6kg) Body Weight Used for Calculations: Actual Energy Needs - Lower Range (kCal/kg): 28 Energy Needs - Upper Range (kCal/kg): 33 Lower Limit kCal/kg (kCals): 2,103 Upper Limit kCal/kg (kCals): 2,478 Lower Limit Protein Factor (Grams per Kg): 1.2 Upper Limit Protein Factor (Grams per Kg): 1.5 Lower Protein Needs (Protein): 90 Upper Protein Needs (Protein): 113 Dietitian Reviewed in Medical Record: Current diet, Curent medications, Intake & Output, Labs, Medical history Diet Order: NPO Objective Comments: Labs include: K+ 3.4, Cr 1.80, Phosphorus 2.1, Iron 35, UOP: [id number], +1 BM Assessment Assessment: Pt remains at nutritional risk r/t current clinical status. Pt s/p kidney transplant POD #4. Nutritional needs as assessed above. Pt has tolerated CL's well, diet will be advanced to regular. Pt +1 BM. Educated patient on diet immediately after transplant. Emphasized starting to drink more liquids, adequate protein. Discussed K+ and phosphorus foods to include in his meal selections. Pt can verbalize his diet very well. Will continue to monitor clinical course and educate with the transplant team. Recommendations: Patient's diet to advance to regular Follow pt with transplant team. Dietitian to Monitor: Lab values, Renal labs, Intake & Output, Diet tolerance, Weight change, PO Intake, Medical course
--- NOTE | 2018-04-12 09:30 | P.PNTS ---
Subjective Interval history: No new c/o. Feels better. Colleen po. Pain better controlled. + BM Physical Exam Vital signs: Vital Signs 04/11/18 11:00 04/11/18 12:00 04/11/18 13:45 Temperature 98.8 F Pulse Rate 92 H 90 Respiratory Rate 20 18 Blood Pressure 151/76 H Pulse Oximetry 97 97 97 04/11/18 14:00 04/11/18 14:15 04/11/18 14:59 Temperature 98.8 F 97.9 F Pulse Rate 91 H 93 H 91 H Respiratory Rate 18 14 20 Blood Pressure 147/79 H 147/79 H Pulse Oximetry 96 97 04/11/18 15:00 04/11/18 15:30 04/11/18 16:00 Temperature 97.9 F 98.2 F Pulse Rate 92 H 92 H Respiratory Rate 22 20 Blood Pressure 147/69 H Pulse Oximetry 96 04/11/18 19:00 04/11/18 19:20 04/11/18 20:13 Temperature 98.2 F 98.2 F Pulse Rate 93 H 93 H 94 H Respiratory Rate 18 18 Blood Pressure 149/78 H 143/76 H Pulse Oximetry 95 95 04/11/18 20:47 04/11/18 21:55 04/11/18 23:00 Temperature 98.2 F Pulse Rate 93 H 92 H Respiratory Rate 16 Blood Pressure 144/77 H Pulse Oximetry 95 95 04/11/18 23:44 04/12/18 01:00 04/12/18 03:00 Temperature 97.6 F Pulse Rate 93 H 91 H Respiratory Rate 20 Blood Pressure 148/80 H Pulse Oximetry 96 94 L 04/12/18 03:07 04/12/18 04:07 04/12/18 05:00 Temperature 98.2 F Pulse Rate 91 H Respiratory Rate 20 18 Blood Pressure 139/67 Pulse Oximetry 91 L 93 L 04/12/18 08:59 Temperature Pulse Rate Respiratory Rate 16 Blood Pressure Pulse Oximetry Intake & Output 04/11/18 04/12/18 04/12/18 18:59 06:59 18:59 Intake Total 1728 / 1728 2512 / 2512 100 / 100 Output Total 3520 / 3520 7735 / 7735 Balance -1792 / -1792 -5223 / -5223 100 / 100 Weight 81.7 kg 80.7 kg Intake: IV 1268 / 1268 792 / 792 100 / 100 Cleviprex Inj 25 mg In 50 ml @ 450 / 450 400 / 400 100 / 100 1 MG/HR 2 mls/hr IV.CONT TITRATE PRN Rx#:[id number] Precedex Inj 200 MCG In NS Inj 208 / 208 142 / 142 50 ML @ 0.2 MCG/KG/HR 4.32 mls/ hr IV.CONT TITRATE PRN Rx#: [id number] Nitroglycerin Drip Premix 50 mg 250 / 250 In 250 ml @ 10 MCG/MIN 3 mls/ hr IV.CONT TITRATE PRN Rx#: [id number] Thymoglobulin Inj 125 MG In NS 500 / 500 Inj 500 ML @ 125 mls/hr IV.SIG ONCE ONE Rx#:[id number] Venofer Inj 200 MG In NS Inj 110 / 110 100 ML @ 110 mls/hr IV.SIG ONCE ONE Rx#:[id number] Oral 240 / 240 920 / 920 Water Bolus Amount 220 / 220 Intake (Blood Product) Amt 0 / 0 800 / 800 Rbc As-3 Leukoreduced Unit 0 / 0 400 / 400 [id number] Rbc As-3 Leukoreduced Unit 400 / 400 [id number] Output: Urine Amount (Catheter) 2920 / 2920 7735 / 7735 Indwelling Urethral Catheter 2920 / 2920 7735 / 7735 Gastric Drainage 600 / 600 Right Nare Nasogastric Tube 600 / 600 - Constitutional no acute distress - Routine HEENT Exam Head: Present: normocephalic, atraumatic Eye: Present: EOMI ENT: Present: mucous membranes moist - Routine Neck Exam Present: supple, full ROM - Routine Respiratory Exam Present: CTA bilaterally - Routine Cardiovascular Exam Present: RRR, S1, S2, murmur - Routine Abdominal Exam Present: soft, normoactive bowel sounds Comments: min distended. Dressing dry / intact - Routine Extremities Exam Present: pulses intact - Routine Skin Exam Present: intact - Routine Neurological Exam Present: alert, oriented X3 - Detailed Neurological Exam: Coma Scale Verbal Response: Oriented - Routine Psychiatric Exam Present: normal affect, normal thought process - Urinary Catheter Management Indwelling Urethral Catheter Cath placed during this visit: yes Urethral indwelling: Yes Reason for continuing: Decision to DC catheter Insertion date: 04/08/18 Insertion time: 11:25 Results - Labs CBC & Chem 7: 04/12/18 05:13 04/12/18 05:13 Laboratory Results - last 24 hr 04/10/18 04/10/18 04/10/18 07:20 11:01 11:28 WBC RBC Hgb Hct MCV MCH MCHC RDW Plt Count MPV Neut % (Auto) Lymph % (Auto) [place] % (Auto) Eos % (Auto) Baso % (Auto) Neut # (Auto) Lymph # (Auto) [place] # (Auto) Eos # (Auto) Baso # (Auto) WBC Differential Differential Comment Sodium Potassium Chloride Carbon Dioxide Anion Gap BUN Creatinine Estimated GFR POC Glucose Random Glucose Calcium Phosphorus Magnesium Iron TIBC % Saturation Ferritin Tacrolimus Blood Type O Positive Antibody Screen Negative MTS Gel Crossmatch See Detail See Detail Bld Prod Order Comment 04/11/18 04/11/18 04/11/18 04:55 04:55 11:40 WBC RBC Hgb 7.9 L Hct 22.3 L MCV MCH MCHC RDW Plt Count MPV Neut % (Auto) Lymph % (Auto) [place] % (Auto) Eos % (Auto) Baso % (Auto) Neut # (Auto) Lymph # (Auto) [place] # (Auto) Eos # (Auto) Baso # (Auto) WBC Differential Differential Comment Sodium Potassium Chloride Carbon Dioxide Anion Gap BUN Creatinine Estimated GFR POC Glucose Random Glucose Calcium Phosphorus Magnesium 2.4 Iron TIBC % Saturation Ferritin Tacrolimus 2.7 L Blood Type Antibody Screen MTS Gel Crossmatch Bld Prod Order Comment 04/11/18 04/11/18 04/11/18 12:32 18:28 23:29 WBC RBC Hgb 9.6 L Hct 26.9 L MCV MCH MCHC RDW Plt Count MPV Neut % (Auto) Lymph % (Auto) [place] % (Auto) Eos % (Auto) Baso % (Auto) Neut # (Auto) Lymph # (Auto) [place] # (Auto) Eos # (Auto) Baso # (Auto) WBC Differential Differential Comment Sodium Potassium Chloride Carbon Dioxide Anion Gap BUN Creatinine Estimated GFR POC Glucose 104 132 H Random Glucose Calcium Phosphorus Magnesium Iron TIBC % Saturation Ferritin Tacrolimus Blood Type Antibody Screen MTS Gel Crossmatch Bld Prod Order Comment 04/11/18 04/12/18 04/12/18 23:29 05:13 05:13 WBC 7.5 RBC 3.17 L Hgb 9.4 L Hct 26.6 L MCV 83.9 MCH 29.6 MCHC 35.3 RDW 15.2 Plt Count 104 L MPV 7.9 Neut % (Auto) 90.1 H Lymph % (Auto) 2.2 L [place] % (Auto) 7.2 Eos % (Auto) 0.0 Baso % (Auto) 0.5 Neut # (Auto) 6.7 Lymph # (Auto) 0.2 L [place] # (Auto) 0.5 Eos # (Auto) 0.0 Baso # (Auto) 0.0 WBC Differential . Differential Comment Auto diff final Sodium 143 144 Potassium 3.5 3.4 L Chloride 107 108 H Carbon Dioxide 30.3 31.1 Anion Gap 6 5 BUN 43 H 41 H Creatinine 2.00 H 1.80 H Estimated GFR 48 L 54 L POC Glucose Random Glucose 118 H 98 Calcium 7.6 L D 8.1 L Phosphorus 2.4 L D 2.1 L Magnesium 2.3 2.3 Iron 35 L TIBC 218 L % Saturation 16.0 L Ferritin 1118 H Tacrolimus Blood Type Antibody Screen MTS Gel Crossmatch Bld Prod Order Comment Assessment and Plan - Plan POD# 4 , POD #2. S/P Right donor kidney transplant to right iliac fossa for ESRD secondary to htn/FSGS. S/p wound exploration for bleeding. Allograft function: immediate. Immunosuppression: Thymoglobulin induction; Maint: steroids + Cellcept 1000 mg BID + Tacrolimus 5 mg BID Patient with continued refractory hypertension. Oral BP meds significantly increased this morning. BP better controlled. Remains on anti-hypertensive drips. Continue to wean as tolerated. Rv Service Technician following. 9.4 (down form 9.6). Will continue to monitor with serial hcts, for now. Remove torres. Advance diet. ? Probable discharge by or Wednesday.
--- NOTE | 2018-04-12 09:33 | DRUGHERB ---
Bryson Alex Wu III 1985 [id number] Post-op Day #4: Reviewed patient profile and recommended the following: * Solumedrol 30mg IV today per protocol. * Continue Cellcept 1000mg PO BID. * Continue tacrolimus, might increase dose depending on trending level. * Hold prophylaxis meds and consider start in AM. * Attempting to wean Cleviprex and Nitroglycerin by further optimizing hypertensive oral meds. 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 * Hgb today 9.4, trending down from 9.6 yesterday. Will plan for checking Hgb level later today. * Checked iron profile, patient might benefit of a third dose of Venofer. * Phosphorus level is low, might consider adding oral Kphos neutral. * Patient has a bowel movement this morning, continue bowel regimen especially with Percocet on board.
[2018-04-12] MEDS ORDERED: Iron Sucrose Complex Inj 200 MG in Sodium Chlor 0.9% Inj 100 ML IV.SIG ONE (10:00)
--- NOTE | 2018-04-12 11:31 | P.PNNP ---
Subjective Interval history: Patient is doing well sitting in the chair Physical Exam Vital signs: Vital Signs 04/11/18 12:00 04/11/18 13:45 04/11/18 14:00 Temperature 98.8 F Pulse Rate 90 91 H Respiratory Rate 18 18 Blood Pressure 147/79 H Pulse Oximetry 97 97 96 04/11/18 14:15 04/11/18 14:59 04/11/18 15:00 Temperature 97.9 F 97.9 F Pulse Rate 93 H 91 H 92 H Respiratory Rate 14 20 22 Blood Pressure 147/79 H 147/69 H Pulse Oximetry 97 04/11/18 15:30 04/11/18 16:00 04/11/18 19:00 Temperature 98.2 F Pulse Rate 92 H 93 H Respiratory Rate 20 Blood Pressure Pulse Oximetry 96 04/11/18 19:20 04/11/18 20:13 04/11/18 20:47 Temperature 98.2 F 98.2 F 98.2 F Pulse Rate 93 H 94 H 93 H Respiratory Rate 18 18 16 Blood Pressure 149/78 H 143/76 H 144/77 H Pulse Oximetry 95 95 95 04/11/18 21:55 04/11/18 23:00 04/11/18 23:44 Temperature 97.6 F Pulse Rate 92 H 93 H Respiratory Rate 20 Blood Pressure 148/80 H Pulse Oximetry 95 96 04/12/18 01:00 04/12/18 03:00 04/12/18 03:07 Temperature 98.2 F Pulse Rate 91 H 91 H Respiratory Rate 20 Blood Pressure 139/67 Pulse Oximetry 94 L 91 L 04/12/18 04:07 04/12/18 05:00 04/12/18 08:59 Temperature Pulse Rate Respiratory Rate 18 16 Blood Pressure Pulse Oximetry 93 L Intake & Output 04/11/18 04/12/18 04/12/18 18:59 06:59 18:59 Intake Total 1728 / 1728 2512 / 2512 670 / 670 Output Total 3520 / 3520 7735 / 7735 Balance -1792 / -1792 -5223 / -5223 670 / 670 Weight 81.7 kg 80.7 kg Intake: IV 1268 / 1268 792 / 792 150 / 150 Cleviprex Inj 25 mg In 50 ml @ 450 / 450 400 / 400 150 / 150 1 MG/HR 2 mls/hr IV.CONT TITRATE PRN Rx#:[id number] Precedex Inj 200 MCG In NS Inj 208 / 208 142 / 142 50 ML @ 0.2 MCG/KG/HR 4.32 mls/ hr IV.CONT TITRATE PRN Rx#: [id number] Nitroglycerin Drip Premix 50 mg 250 / 250 In 250 ml @ 10 MCG/MIN 3 mls/ hr IV.CONT TITRATE PRN Rx#: [id number] Thymoglobulin Inj 125 MG In NS 500 / 500 Inj 500 ML @ 125 mls/hr IV.SIG ONCE ONE Rx#:[id number] Venofer Inj 200 MG In NS Inj 110 / 110 100 ML @ 110 mls/hr IV.SIG ONCE ONE Rx#:[id number] Oral 240 / 240 920 / 920 520 / 520 Water Bolus Amount 220 / 220 Intake (Blood Product) Amt 0 / 0 800 / 800 Rbc As-3 Leukoreduced Unit 0 / 0 400 / 400 [id number] Rbc As-3 Leukoreduced Unit 400 / 400 [id number] Output: Urine Amount (Catheter) 2920 / 2920 7735 / 7735 Indwelling Urethral Catheter 2920 / 2920 7735 / 7735 Gastric Drainage 600 / 600 Right Nare Nasogastric Tube 600 / 600 Narrative: GENERAL: Well-nourished, well-developed patient. SKIN: Warm and dry. HEAD: Normocephalic. EYES: No scleral icterus. No injection or drainage. NECK: Supple, trachea midline. No JVD or lymphadenopathy. CARDIOVASCULAR: Regular rate and rhythm without murmurs, gallops, or rubs. RESPIRATORY: Breath sounds equal bilaterally. No accessory muscle use. GASTROINTESTINAL: Abdomen soft, postsurgical dressing on the right lower abdomen , nondistended. EXTREMITIES: 1+ edema NEUROLOGICAL: Drowsy - Urinary Catheter Management Indwelling Urethral Catheter Cath placed during this visit: yes Urethral indwelling: Yes Reason for continuing: Decision to DC catheter Insertion date: 04/08/18 Insertion time: 11:25 Assessment and Plan - Assessment (1) ESRD (end stage renal disease) on dialysis Code(s): N18.6 - End stage renal disease; Z99.2 - Dependence on renal dialysis Status: Chronic Plan: He had a kidney transplant patient has drop in hemoglobin due to blood loss hemoglobin was 4.9 Received more packed red blood cell currently at 8.[address] scan which showed small hematoma however high suspicion of bleeding Decided to reoperate He has a pin hole opening on arterial anastomosis and this was secured Patient currently is stable creatinine did decline he is passing urine Hypertensive and on Cleviprex drip being weaned down Minoxidil increased to 20 mg q 8, clonidine 0.4 mg q [address] De Los Santos Coreg 37.5 twice a day Amlodipine 10 mg daily Prograf increased to 5 mg BID tacrolimus levels 5.7 (2) HTN (hypertension) Code(s): I10 - Essential (primary) hypertension Status: Acute Qualifiers: Hypertension type: essential hypertension Qualified Code(s): I10 - Essential (primary) hypertension Plan: Continue to monitor blood pressure patient is on Cleviprex drip adjustment in oral medications as above
[2018-04-12] MEDS ORDERED: MethylPREDNISolone Sod Succinate Inj 40 MG/ML Vial IV.PUSH ONE (12:00)
[2018-04-12] MEDS: Potassium Phos/Sodium Phos 250 MG Tablet PO SCH ×2 (12:53→17:28)
[2018-04-12 13:23] LABS: Hematocrit 27.9 % (39.0-51.0); Hemoglobin 9.7 gm/dL (13.0-17.0)
--- NOTE | 2018-04-12 14:46 | P.OP ---
Preoperative Diagnosis: Large expanding right retroperitoneal hematoma Refractory acute blood loss anemia Postoperative Diagnosis: Large expanding right retroperitoneal hematoma Refractory acute blood loss anemia Date of procedure: 04/10/18 Procedure: 1. Exploration of the right retroperitoneum 2. Evacuation of a right retroperitoneal hematoma 3. Primary repair of the transplanted kidney arterial anastomosis bleeding Anesthesia: GETA Surgeon: Gian Reyes MD Operation and Findings: Findings 1. Large right retroperitoneal hematoma 2. Bleeding from the arterial anastomosis of kidney transplant that was repaired primarily. 3. Intact venous anastomosis with no evidence of active bleeding. Operation details Vascular surgery was involved for intraoperative consultation by Dr. Healy. The patient was taken to the operating room, laid supine on the OR table. After general trach anesthesia, the patient was prepped and draped in the standard sterile fashion. Timeout was called with all members and you are in agreement. The wound was reopened and the right retroperitoneum was entered. A large hematoma was encountered. The hematoma was evacuated and the retroperitoneum was thoroughly irrigated. The arterial anastomosis was examined and we noted an active pulsatile bleeding from the suture line. This was repaired using single 5-0 Prolene suture. The venous anastomosis was noted to be intact. The rest of the retroperitoneum was noted to be dry with no evidence of active bleeding. At this point I scrubbed out and the rest of the operation was carried by Dr. Healy.
[2018-04-12 19:12] LABS: Hematocrit 27.4 % (39.0-51.0); Hemoglobin 9.5 gm/dL (13.0-17.0)
[2018-04-13] MEDS: hydrALAZINE 50 MG Tablet PO SCH ×3 (00:34→17:42)
[2018-04-13 05:18] LABS: Baso # (Auto) 0.1 th/mm3 (0.0-0.2); Baso % (Auto) 0.9 % (0.0-2.0); Hematocrit 26.6 % (39.0-51.0); Hemoglobin 9.2 gm/dL (13.0-17.0); Lymph % (Auto) 0.7 % (9.0-44.0); Mean Corpuscular HGB Conc 34.7 % (32.0-36.0); Mean Corpuscular Hemoglobin 29.7 pg (27.0-34.0); Mean Corpuscular Volume 85.6 fL (80.0-100.0); Mono # (Auto) 0.5 th/mm3 (0.0-0.9); Mono % (Auto) 6.9 % (0.0-8.0); Neut # (Auto) 6.2 th/mm3 (1.8-7.7); Neut % (Auto) 91.5 % (16.0-70.0); Platelet Count 107 th/mm3 (150-450); Red Blood Count 3.11 mil/mm3 (4.50-5.90); Red Cell Distribution Width 14.9 % (11.6-17.2); White Blood Count 6.7 th/mm3 (4.0-11.0)
[2018-04-13 05:47] LABS: Calcium 7.4 mg/dL (8.5-10.1); Carbon Dioxide 26.8 meq/L (21.0-32.0); Magnesium 2.2 mg/dL (1.5-2.5); Phosphorus 1.6 mg/dL (2.5-4.9); Potassium 3.7 meq/L (3.5-5.1)
[2018-04-13 05:54] LABS: Albumin 3.3 g/dL (3.4-5.0)
[2018-04-13] MEDS: Minoxidil 10 MG Tablet PO SCH ×3 (06:03→22:54)
--- NOTE | 2018-04-13 06:38 | P.PNCC ---
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 He understands procedure April 08, 2018 without complications. He has been admitted to CVICU postprocedure with critical care consultation for better blood pressure management. 04/10: Hemoglobin dropped overnight requiring blood transfusion. Still remains on Cardene drip, no complaints 04/11: Young -[place] male appears ill. NG tube in place. Currently on Precedex for agitation. Refractory hypertension currently on Cleviprex infusion , nitroglycerin infusion. On multiple p.o. meds as well. 04/10 underwent wound exploration, evacuation of hematoma, suture repair of single area of anastomotic arterial hemorrhage. Hemoglobin stable. 04/12: Slightly improved blood pressure control however remains on Cleviprex and nitro infusions. I will further increase the clonidine and minoxidil. Mentation improved sitting up in bed. 04/13: Blood pressure control is improved. Remains off Cleviprex and nitro infusions. Urine output excellent more than 2.3 L. Hemoglobin remained stable Objective Vital Signs / I&O: Vital Signs 04/12/18 07:00 04/12/18 08:59 04/12/18 09:00 Temperature 98.9 F Pulse Rate 92 H Respiratory Rate 16 16 Blood Pressure 139/79 Pulse Oximetry 96 94 L 04/12/18 11:00 04/12/18 13:00 04/12/18 15:00 Temperature 98.2 F 98.2 F Pulse Rate 93 H 93 H Respiratory Rate 16 16 Blood Pressure 143/72 H 143/72 H Pulse Oximetry 94 L 04/12/18 17:00 04/12/18 17:30 04/12/18 19:00 Temperature 99.7 F H Pulse Rate 90 Respiratory Rate 14 16 Blood Pressure 125/67 Pulse Oximetry 94 L 94 L 04/12/18 21:00 04/12/18 22:16 04/12/18 23:00 Temperature 98.5 F Pulse Rate 86 Respiratory Rate 15 Blood Pressure 139/67 Pulse Oximetry 96 96 95 04/13/18 02:00 04/13/18 03:00 Temperature 98.6 F Pulse Rate 73 Respiratory Rate 15 Blood Pressure 113/49 L Pulse Oximetry 95 95 Intake & Output 04/12/18 04/12/18 04/13/18 06:59 18:59 06:59 Intake Total 2512 / 2512 2001 720 / 720 Output Total 7735 / 7735 1325 / 1325 1025 / 1025 Balance -5223 / -5223 677 / 677 -305 / -305 Weight 80.7 kg 81 kg Intake: IV 792 / 792 412 / 412 Cleviprex Inj 25 mg In 50 ml @ 400 / 400 250 / 250 1 MG/HR 2 mls/hr IV.CONT TITRATE PRN Rx#:[id number] Precedex Inj 200 MCG In NS Inj 142 / 142 52 / 52 50 ML @ 0.2 MCG/KG/HR 4.32 mls/ hr IV.CONT TITRATE PRN Rx#: [id number] Nitroglycerin Drip Premix 50 mg 250 / 250 In 250 ml @ 10 MCG/MIN 3 mls/ hr IV.CONT TITRATE PRN Rx#: [id number] Venofer Inj 200 MG In NS Inj 110 / 110 100 ML @ 110 mls/hr IV.SIG ONCE ONE Rx#:[id number] Oral 920 / 920 1590 / 1590 720 / 720 Intake (Blood Product) Amt 800 / 800 Rbc As-3 Leukoreduced Unit 400 / 400 [id number] Rbc As-3 Leukoreduced Unit 400 / 400 [id number] Output: Urine 1325 / 1325 1025 / 1025 Urine Amount (Catheter) 7735 / 7735 Indwelling Urethral Catheter 7735 / 7735 Other: Date of Last Bowel Movement 04/12/18 04/13/18 # Bowel Movements 3 Result Diagrams: 04/13/18 04:11 04/13/18 04:11 Objective Remarks: - Constitutional 32-year-old -[place] male, lying in bed comfortable - Routine HEENT Exam Head: Present: normocephalic, atraumatic Eye: Present: PERRL, normal accommodation ENT: Present: mucous membranes moist - Routine Neck Exam Present: supple, full ROM. Absent: JVD, carotid bruit - Routine Respiratory Exam Absent: accessory muscle use, wheezes, crackles. Few coarse rhonchi bilateral - Routine Cardiovascular Exam Present: RRR, S1, S2. Conducted murmur from AV fistula - Routine Abdominal Exam Present: soft, normoactive bowel sounds - Routine Skin Exam Present: intact. Absent: cyanosis, erythema. Left upper extremity AV fistula which is pulsatile bruit present - Routine Neurological Exam Patient is currently alert awake oriented follows commands. No focal deficits. Assessment and Plan - Assessment and Plan Plan: Uncontrolled hypertension/hypertensive emergency - Currently OFF Cleviprex and nitroglycerin infusions. - continue Coreg, Norvasc - Clonidine to 0.4 mg q6h - Minoxidil to 20 mg 8h - Hydralazine p.o. 200 mg every 8 - Labetalol, hydralazine, Cleviprex, nitroglycerin drip as needed to keep SBP less than 150 Focal sclerosing glomerulonephritis/ESRD -Status post renal transplant 04/08/18 -continue CellCept, Prograf -Avoid nephrotoxins. -Further management per nephrology and transplant surgery -pain control as needed. Postop blood loss anemia -Transfuse to keep hemoglobin more than 8 -04/10 underwent wound exploration, evacuation of hematoma, suture repair of single area of anastomotic arterial hemorrhage. Hemoglobin stable. -transfused with PRBC 04/09 Anemia -post-op -End-stage renal disease -We will monitor H&H and transfuse as needed to keep hemoglobin above 7 DVT prophylaxis- SCD's -Pharmacological DVT prophylaxis hold due post op anemia and bleeding Level 2 Okay to transfer out of ICU to CIC/CPCU from critical care point
[2018-04-13 07:44] VITALS: O2SAT 96
[2018-04-13] MEDS ORDERED: MethylPREDNISolone Sod Succinate Inj 40 MG/ML Vial IV.PUSH SCH (09:00)
--- NOTE | 2018-04-13 09:05 | P.PNNP ---
Subjective Interval history: patient is doing better BP improved Physical Exam Vital signs: Vital Signs 04/12/18 11:00 04/12/18 13:00 04/12/18 15:00 Temperature 98.2 F 98.2 F Pulse Rate 93 H 93 H Respiratory Rate 16 16 Blood Pressure 143/72 H 143/72 H Pulse Oximetry 94 L 04/12/18 17:00 04/12/18 17:30 04/12/18 19:00 Temperature 99.7 F H Pulse Rate 90 Respiratory Rate 14 16 Blood Pressure 125/67 Pulse Oximetry 94 L 94 L 04/12/18 21:00 04/12/18 22:16 04/12/18 23:00 Temperature 98.5 F Pulse Rate 86 Respiratory Rate 15 Blood Pressure 139/67 Pulse Oximetry 96 96 95 04/13/18 02:00 04/13/18 03:00 04/13/18 07:00 Temperature 98.6 F Pulse Rate 73 81 Respiratory Rate 15 Blood Pressure 113/49 L Pulse Oximetry 95 95 04/13/18 07:38 Temperature 98.7 F Pulse Rate 82 Respiratory Rate 20 Blood Pressure 132/67 Pulse Oximetry 96 Intake & Output 04/12/18 04/13/18 04/13/18 18:59 06:59 18:59 Intake Total 2001 720 / 720 Output Total 1325 / 1325 1025 / 1025 175 / 175 Balance 677 / 677 -305 / -305 -175 / -175 Weight 81 kg Intake: IV 412 / 412 Cleviprex Inj 25 mg In 50 ml @ 250 / 250 1 MG/HR 2 mls/hr IV.CONT TITRATE PRN Rx#:[id number] Precedex Inj 200 MCG In NS Inj 52 / 52 50 ML @ 0.2 MCG/KG/HR 4.32 mls/ hr IV.CONT TITRATE PRN Rx#: [id number] Venofer Inj 200 MG In NS Inj 110 / 110 100 ML @ 110 mls/hr IV.SIG ONCE ONE Rx#:[id number] Oral 1590 / 1590 720 / 720 Output: Urine 1325 / 1325 1025 / 1025 Urine Amount (Catheter) 175 / 175 Indwelling Urethral Catheter 175 / 175 Other: Date of Last Bowel Movement 04/12/18 04/13/18 04/13/18 # Bowel Movements 3 Narrative: GENERAL: Well-nourished, well-developed patient. SKIN: Warm and dry. HEAD: Normocephalic. EYES: No scleral icterus. No injection or drainage. NECK: Supple, trachea midline. No JVD or lymphadenopathy. CARDIOVASCULAR: Regular rate and rhythm without murmurs, gallops, or rubs. RESPIRATORY: Breath sounds equal bilaterally. No accessory muscle use. GASTROINTESTINAL: Abdomen soft, postsurgical dressing on the right lower abdomen , nondistended. EXTREMITIES: 1+ edema NEUROLOGICAL: Drowsy - Urinary Catheter Management Indwelling Urethral Catheter Cath placed during this visit: yes, but has since been removed by the nurse Urethral indwelling: Yes Reason for continuing: Not indwelling catheter Insertion date: 04/08/18 Insertion time: 11:25 Removal date: 04/12/18 Removal time: 10:00 Assessment and Plan - Assessment (1) ESRD (end stage renal disease) on dialysis Code(s): N18.6 - End stage renal disease; Z99.2 - Dependence on renal dialysis Status: Chronic Plan: He had a kidney transplant patient has drop in hemoglobin due to blood loss hemoglobin was 4.9 Received more packed red blood cell currently at 9.[address] scan which showed small hematoma however high suspicion of bleeding Decided to reoperate He has a pin hole opening on arterial anastomosis and this was secured Patient currently is stable creatinine did decline he is passing urine Hypertensive and on Cleviprex drip being weaned down Minoxidil increased to 20 mg q 8, clonidine 0.4 mg q [address] De Los Santos , hydralazine 100 mg q8 Coreg 37.5 twice a day Amlodipine 10 mg daily Prograf increased to 6 mg BID tacrolimus levels 4.7 KPO4 given OK to discharge from Nephrology point of view (2) HTN (hypertension) Code(s): I10 - Essential (primary) hypertension Status: Acute Qualifiers: Hypertension type: essential hypertension Qualified Code(s): I10 - Essential (primary) hypertension Plan: Continue to monitor blood pressure patient is off Cleviprex drip adjustment in oral medications as above
--- NOTE | 2018-04-13 09:16 | P.PNTS ---
Subjective Interval history: No new c/o. Pain well controlled. Central line pulled iout last night , while patient was trying to get out of bed reportedly. No expanding hematoma noted at former entry site. Dressing in place. Abd pain well controlled. Physical Exam Vital signs: Vital Signs 04/12/18 11:00 04/12/18 13:00 04/12/18 15:00 Temperature 98.2 F 98.2 F Pulse Rate 93 H 93 H Respiratory Rate 16 16 Blood Pressure 143/72 H 143/72 H Pulse Oximetry 94 L 04/12/18 17:00 04/12/18 17:30 04/12/18 19:00 Temperature 99.7 F H Pulse Rate 90 Respiratory Rate 14 16 Blood Pressure 125/67 Pulse Oximetry 94 L 94 L 04/12/18 21:00 04/12/18 22:16 04/12/18 23:00 Temperature 98.5 F Pulse Rate 86 Respiratory Rate 15 Blood Pressure 139/67 Pulse Oximetry 96 96 95 04/13/18 02:00 04/13/18 03:00 04/13/18 07:00 Temperature 98.6 F Pulse Rate 73 81 Respiratory Rate 15 Blood Pressure 113/49 L Pulse Oximetry 95 95 04/13/18 07:38 Temperature 98.7 F Pulse Rate 82 Respiratory Rate 20 Blood Pressure 132/67 Pulse Oximetry 96 Intake & Output 04/12/18 04/13/18 04/13/18 18:59 06:59 18:59 Intake Total 2001 720 / 720 Output Total 1325 / 1325 1025 / 1025 175 / 175 Balance 677 / 677 -305 / -305 -175 / -175 Weight 81 kg Intake: IV 412 / 412 Cleviprex Inj 25 mg In 50 ml @ 250 / 250 1 MG/HR 2 mls/hr IV.CONT TITRATE PRN Rx#:[id number] Precedex Inj 200 MCG In NS Inj 52 / 52 50 ML @ 0.2 MCG/KG/HR 4.32 mls/ hr IV.CONT TITRATE PRN Rx#: [id number] Venofer Inj 200 MG In NS Inj 110 / 110 100 ML @ 110 mls/hr IV.SIG ONCE ONE Rx#:[id number] Oral 1590 / 1590 720 / 720 Output: Urine 1325 / 1325 1025 / 1025 Urine Amount (Catheter) 175 / 175 Indwelling Urethral Catheter 175 / 175 Other: Date of Last Bowel Movement 04/12/18 04/13/18 04/13/18 # Bowel Movements 3 - Constitutional no acute distress - Routine HEENT Exam Head: Present: normocephalic, atraumatic ENT: Present: mucous membranes moist - Routine Neck Exam Present: supple, full ROM - Routine Respiratory Exam Present: CTA bilaterally - Routine Cardiovascular Exam Present: RRR, S1, S2, murmur - Routine Abdominal Exam Present: soft, normoactive bowel sounds - Routine Extremities Exam Present: pulses intact - Routine Skin Exam Present: intact - Routine Neurological Exam Present: alert, oriented X3 - Detailed Neurological Exam: Coma Scale Verbal Response: Oriented - Routine Psychiatric Exam Present: normal affect, normal thought process - Urinary Catheter Management Indwelling Urethral Catheter Cath placed during this visit: yes, but has since been removed by the nurse Urethral indwelling: No Reason for continuing: Not indwelling catheter Insertion date: 04/08/18 Insertion time: 11:25 Removal date: 04/12/18 Removal time: 10:00 Results - Labs CBC & Chem 7: 04/13/18 04:11 04/13/18 04:11 Laboratory Results - last 24 hr 04/10/18 04/10/18 04/12/18 07:20 11:01 05:13 WBC RBC Hgb Hct MCV MCH MCHC RDW Plt Count MPV Neut % (Auto) Lymph % (Auto) [place] % (Auto) Eos % (Auto) Baso % (Auto) Neut # (Auto) Lymph # (Auto) [place] # (Auto) Eos # (Auto) Baso # (Auto) WBC Differential Differential Comment Sodium Potassium Chloride Carbon Dioxide Anion Gap BUN Creatinine Estimated GFR POC Glucose Random Glucose Calcium Calcium Adj for Albumin Phosphorus Magnesium Albumin Tacrolimus 5.7 Blood Type O Positive Antibody Screen Negative MTS Gel Crossmatch See Detail See Detail 04/12/18 04/12/18 04/12/18 12:40 12:49 18:10 WBC RBC Hgb 9.7 L 9.5 L Hct 27.9 L 27.4 L MCV MCH MCHC RDW Plt Count MPV Neut % (Auto) Lymph % (Auto) [place] % (Auto) Eos % (Auto) Baso % (Auto) Neut # (Auto) Lymph # (Auto) [place] # (Auto) Eos # (Auto) Baso # (Auto) WBC Differential Differential Comment Sodium Potassium Chloride Carbon Dioxide Anion Gap BUN Creatinine Estimated GFR POC Glucose 90 Random Glucose Calcium Calcium Adj for Albumin Phosphorus Magnesium Albumin Tacrolimus Blood Type Antibody Screen MTS Gel Crossmatch 04/12/18 04/13/18 04/13/18 18:19 00:33 04:11 WBC 6.7 RBC 3.11 L Hgb 9.2 L Hct 26.6 L MCV 85.6 MCH 29.7 MCHC 34.7 RDW 14.9 Plt Count 107 L MPV 8.0 Neut % (Auto) 91.5 H Lymph % (Auto) 0.7 L [place] % (Auto) 6.9 Eos % (Auto) 0.0 Baso % (Auto) 0.9 Neut # (Auto) 6.2 Lymph # (Auto) 0.0 L [place] # (Auto) 0.5 Eos # (Auto) 0.0 Baso # (Auto) 0.1 WBC Differential . Differential Comment Auto diff final Sodium Potassium Chloride Carbon Dioxide Anion Gap BUN Creatinine Estimated GFR POC Glucose 105 122 H Random Glucose Calcium Calcium Adj for Albumin Phosphorus Magnesium Albumin Tacrolimus Blood Type Antibody Screen MTS Gel Crossmatch 04/13/18 04:11 WBC RBC Hgb Hct MCV MCH MCHC RDW Plt Count MPV Neut % (Auto) Lymph % (Auto) [place] % (Auto) Eos % (Auto) Baso % (Auto) Neut # (Auto) Lymph # (Auto) [place] # (Auto) Eos # (Auto) Baso # (Auto) WBC Differential Differential Comment Sodium 142 Potassium 3.7 Chloride 107 Carbon Dioxide 26.8 Anion Gap 8 BUN 44 H Creatinine 1.92 H Estimated GFR 50 L POC Glucose Random Glucose 115 H Calcium 7.4 L* Calcium Adj for Albumin 8.0 L Phosphorus 1.6 L Magnesium 2.2 Albumin 3.3 L Tacrolimus Blood Type Antibody Screen MTS Gel Crossmatch Assessment and Plan - Plan POD# 5 , POD #3. 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 S/p wound exploration for bleeding. Allograft function: immediate. Immunosuppression: Thymoglobulin induction; Maint: steroids + Cellcept 1000 mg BID + Tacrolimus 5 mg BID Patient with refractory hypertension, now improved with current BP med regimen Anti-hypertensive drips discontinued. Continued good renal function. Encouraged fluid intake. Ambulate. Appreciate assist of other consultants. Okay with transfer to [facility]. Jacquelinol 20 mg IV, replete phos, start valcyte and bactrim. Will start clotrimazole evette as nystatin S&S not available. Anticipate discharge tomorrow.
[2018-04-13] MEDS: Potassium Phos/Sodium Phos 250 MG Tablet PO SCH ×3 (09:25→17:42)
[2018-04-13] MEDS: Carvedilol 12.5 MG Tablet PO SCH ×2 (09:25→20:04)
[2018-04-13] MEDS: amLODIPine 10 MG Tablet PO SCH (09:25)
[2018-04-13] MEDS: Pantoprazole Inj 40 MG Vial IV.PUSH SCH (09:25)
[2018-04-13] MEDS: Senna/Docusate Sodium 8.6/50 MG Tablet PO SCH (09:26)
[2018-04-13] MEDS: Docusate Sodium 100 MG Capsule PO SCH (09:26)
[2018-04-13] MEDS ORDERED: Potassium Phosphate Inj 15 MMOL in Sodium Chlor 0.9% Inj 150 ML IV.SIG ONE (10:00)
[2018-04-13] MEDS ORDERED: Iron Sucrose Complex Inj 200 MG in Sodium Chlor 0.9% Inj 100 ML IV.SIG ONE (11:00)
[2018-04-13] MEDS: Clotrimazole 10 MG Troche BUCCAL SCH ×3 (12:24→18:37)
--- NOTE | 2018-04-13 16:58 | DRUGHERB ---
Bryson Alex Washburn III 1985 [id number] Post-op Day #5: Reviewed patient profile and recommended the following: * Start oral Prednisone 10mg daily per protocol. * Continue CellCept * Tacrolimus level today is 4.7, trending down. Might consider increase dose to 6mg daily. * Start Valcyte 450mg daily * Start Bactrim DS PO three times weekly * Start Clotrimazole 10mg PO TID, noted that Nystatin is in shortage * Blood pressure adequately controlled off drip today. Continue current regimen of oral hypertensive medication and reaccess in am. * Patient had 3 bowel movements today, recommended discontinue of scheduled pericolace. * Pain control adequately controlled with Percocet, may discontinue dilaudid AS400 CONSULTANT. * Phosphorus level is low at 1.6, might consider repleting with intravenous Potassium Phosphate * Hgb continue to trend down, may repeat Venofer. Also may consider starting oral ferrous sulphate 325mg bid. Isabel Mchugh, PharmD 04/13/17 15:00
[2018-04-13] MEDS: Ferrous Sulfate 325 MG Tablet PO SCH (20:04)
[2018-04-14] MEDS: hydrALAZINE 50 MG Tablet PO SCH ×2 (00:21→08:28)
[2018-04-14] MEDS: Docusate Sodium 100 MG Capsule PO SCH ×2 (00:22→08:30)
[2018-04-14] MEDS ORDERED: Morphine Inj 4 MG/ML Vial IV.PUSH ONE (01:02)
[2018-04-14 02:06] VITALS: RESP 20
[2018-04-14 04:26] LABS: Baso # (Auto) 0.1 th/mm3 (0.0-0.2); Baso % (Auto) 0.7 % (0.0-2.0); Eos % (Auto) 0.4 % (0.0-4.0); Hematocrit 29.1 % (39.0-51.0); Hemoglobin 9.8 gm/dL (13.0-17.0); Lymph # (Auto) 0.1 th/mm3 (1.0-4.8); Lymph % (Auto) 0.7 % (9.0-44.0); Mean Corpuscular HGB Conc 33.9 % (32.0-36.0); Mean Corpuscular Hemoglobin 29.3 pg (27.0-34.0); Mean Corpuscular Volume 86.4 fL (80.0-100.0); Mean Platelet Volume 7.5 fL (7.0-11.0); Mono # (Auto) 0.8 th/mm3 (0.0-0.9); Neut # (Auto) 7.3 th/mm3 (1.8-7.7); Neut % (Auto) 88.2 % (16.0-70.0); Platelet Count 129 th/mm3 (150-450); Red Blood Count 3.37 mil/mm3 (4.50-5.90); Red Cell Distribution Width 15.2 % (11.6-17.2); White Blood Count 8.3 th/mm3 (4.0-11.0)
[2018-04-14 04:56] LABS: Calcium 7.5 mg/dL (8.5-10.1); Carbon Dioxide 26.1 meq/L (21.0-32.0); Phosphorus 2.2 mg/dL (2.5-4.9); Potassium 3.5 meq/L (3.5-5.1)
--- NOTE | 2018-04-14 07:02 | P.PNIM ---
Subjective Interval history: f/u; s/p kidney transplant in no acute distress. had some pain to the flanks last night but pain is better this morning. good urine output. BP trend noted. Physical Exam Vital signs: Vital Signs 04/13/18 07:38 04/13/18 11:00 04/13/18 15:00 Temperature 98.7 F 97.5 F L 98.5 F Pulse Rate 82 82 86 Respiratory Rate 20 18 18 Blood Pressure 132/67 136/64 149/72 H Pulse Oximetry 96 04/13/18 19:00 04/13/18 20:30 04/13/18 23:00 Temperature 97.9 F 98.2 F Pulse Rate 91 H 76 Respiratory Rate 22 22 20 Blood Pressure 122/79 121/60 Pulse Oximetry 04/14/18 03:00 Temperature 98.2 F Pulse Rate 79 Respiratory Rate 20 Blood Pressure 143/71 H Pulse Oximetry Intake & Output 04/13/18 04/14/18 04/14/18 18:59 06:59 18:59 Intake Total 1585 / 1585 192 / 1922 Output Total 1050 / 1050 1100 / 1100 Balance 535 / 535 822 / 822 Weight 81 kg Intake: IV 265 / 265 Venofer Inj 200 MG In NS Inj 110 / 110 100 ML @ 110 mls/hr IV.SIG ONCE ONE Rx#:[id number] Potassium Phosphate Inj 15 MMOL 155 / 155 In NS Inj 150 ML @ 38.75 mls/ hr IV.SIG ONCE ONE Rx#:[id number] Oral 1320 / 1320 1922 / 1922 Output: Urine 1100 / 1100 Urine Amount (Catheter) 1050 / 1050 Indwelling Urethral Catheter 1050 / 1050 Other: Date of Last Bowel Movement 04/13/18 04/13/18 # Bowel Movements 1 Constitutional no acute distress Routine Respiratory Exam Present CTA bilaterally Routine Cardiovascular Exam Present RRR Routine Abdominal Exam Present soft Routine Extremities Exam Comments: no pedal edema. Routine Neurological Exam Present alert and oriented X3 Urinary Catheter Management Indwelling Urethral Catheter: Cath placed during this visit: yes, but has since been removed by the nurse Urethral indwelling: No Reason for continuing: Not indwelling catheter Insertion date: 04/08/18 Insertion time: 11:25 Removal date: 04/12/18 Removal time: 10:00 Results Labs CBC & Chem 7: 04/14/18 04:15 04/14/18 04:15 Procedures Procedures: kidney transplant. Assessment and Plan Plan A/P Uncontrolled hypertension/hypertensive emergency- now BP has much improved. - continue Coreg, Norvasc - Minoxidil to 20 mg 8h - Hydralazine p.o. 100 mg every 8 Focal sclerosing glomerulonephritis/ESRD -Status post renal transplant 04/08/18 -continue CellCept, Prograf -Avoid nephrotoxins. -Further management per nephrology and transplant surgery -pain control as needed. Postop blood loss anemia -Transfuse to keep hemoglobin more than 8 -04/10 underwent wound exploration, evacuation of hematoma, suture repair of single area of anastomotic arterial hemorrhage. Hemoglobin stable. -transfused with PRBC 04/09 Anemia -post-op -End-stage renal disease H/H fairly stable. DVT prophylaxis- SCD's -Pharmacological DVT prophylaxis hold due post op anemia and bleeding Discussed Condition With: the patient. Discharge Planning: dc home- hopefully soon when cleared by transplant surgery.
[2018-04-14 07:25] VITALS: PULSE 93
[2018-04-14 07:29] VITALS: BP 156/77; TEMP 98.5
[2018-04-14] MEDS: Minoxidil 10 MG Tablet PO SCH (07:37)
[2018-04-14] MEDS: Pantoprazole Inj 40 MG Vial IV.PUSH SCH (08:21)
[2018-04-14] MEDS: Clotrimazole 10 MG Troche BUCCAL SCH (08:21)
[2018-04-14] MEDS: Potassium Phos/Sodium Phos 250 MG Tablet PO SCH (08:22)
[2018-04-14] MEDS: amLODIPine 10 MG Tablet PO SCH (08:26)
[2018-04-14] MEDS: Ferrous Sulfate 325 MG Tablet PO SCH (08:27)
[2018-04-14] MEDS: Carvedilol 12.5 MG Tablet PO SCH (08:29)
[2018-04-14] MEDS ORDERED: predniSONE 20 MG Tablet PO SCH (09:00)
--- NOTE | 2018-04-14 09:08 | P.PNNP ---
Subjective Interval history: had pain lumbar area rt side in am now better after pain pill Physical Exam Vital signs: Vital Signs 04/13/18 11:00 04/13/18 15:00 04/13/18 19:00 Temperature 97.5 F L 98.5 F 97.9 F Pulse Rate 82 86 91 H Respiratory Rate 18 18 22 Blood Pressure 136/64 149/72 H 122/79 04/13/18 20:30 04/13/18 23:00 04/14/18 03:00 Temperature 98.2 F 98.2 F Pulse Rate 76 79 Respiratory Rate 22 20 20 Blood Pressure 121/60 143/71 H 04/14/18 07:24 04/14/18 07:28 Temperature 98.5 F Pulse Rate 93 H 93 H Respiratory Rate 20 Blood Pressure 156/77 H Intake & Output 04/13/18 04/14/18 04/14/18 18:59 06:59 18:59 Intake Total 1585 / 1585 1921 Output Total 1050 / 1050 1100 / 1100 Balance 535 / 535 822 / 822 Weight 81 kg Intake: IV 265 / 265 Venofer Inj 200 MG In NS Inj 110 / 110 100 ML @ 110 mls/hr IV.SIG ONCE ONE Rx#:[id number] Potassium Phosphate Inj 15 MMOL 155 / 155 In NS Inj 150 ML @ 38.75 mls/ hr IV.SIG ONCE ONE Rx#:[id number] Oral 1320 / 1320 1921 / 192 Output: Urine 1100 / 1100 Urine Amount (Catheter) 1050 / 1050 Indwelling Urethral Catheter 1050 / 1050 Other: Date of Last Bowel Movement 04/13/18 04/13/18 04/14/18 # Bowel Movements 1 Narrative: GENERAL: Well-nourished, well-developed patient. SKIN: Warm and dry. HEAD: Normocephalic. EYES: No scleral icterus. No injection or drainage. NECK: Supple, trachea midline. No JVD or lymphadenopathy. CARDIOVASCULAR: Regular rate and rhythm without murmurs, gallops, or rubs. RESPIRATORY: Breath sounds equal bilaterally. No accessory muscle use. GASTROINTESTINAL: Abdomen soft, postsurgical dressing on the right lower abdomen , nondistended. EXTREMITIES: 1+ edema NEUROLOGICAL: Drowsy - Urinary Catheter Management Indwelling Urethral Catheter Cath placed during this visit: yes, but has since been removed by the nurse Urethral indwelling: No Reason for continuing: Not indwelling catheter Insertion date: 04/08/18 Insertion time: 11:25 Removal date: 04/12/18 Removal time: 10:00 Assessment and Plan - Assessment (1) ESRD (end stage renal disease) on dialysis Code(s): N18.6 - End stage renal disease; Z99.2 - Dependence on renal dialysis Status: Chronic Plan: He had a kidney transplant 04/08/18 patient has drop in hemoglobin due to blood loss hemoglobin was 4.9 currently at 9.[address] scan which showed small hematoma however high suspicion of bleeding Decided to reoperate He has a pin hole opening on arterial anastomosis and this was secured on 04/10 Patient currently is stable creatinine 1.91 he is passing urine Hypertensive on Minoxidil increased to 20 mg q 8, clonidine 0.4 mg q [address] De Los Santos , hydralazine 100 mg q8 Coreg 37.5 twice a day Amlodipine 10 mg daily KPO4 added Prograf increased to 6 mg BID tacrolimus levels pending increase Tacrolimus 7 mg bid Prednisone at 20 mg daily, CellCept 1000 mg bid d/w Dr. Healy Lasix 40 mg IVX1 prior to discharge home today OK to discharge from Nephrology point of view (2) HTN (hypertension) Code(s): I10 - Essential (primary) hypertension Status: Acute Qualifiers: Hypertension type: essential hypertension Qualified Code(s): I10 - Essential (primary) hypertension Plan: Continue to monitor blood pressure patient is off Cleviprex drip adjustment in oral medications as above
--- NOTE | 2018-04-14 09:31 | P.PNTS ---
Subjective Interval history: Had right flank pain overnight. Improved with pain med. No other new c/o. Physical Exam Vital signs: Vital Signs 04/13/18 11:00 04/13/18 15:00 04/13/18 19:00 Temperature 97.5 F L 98.5 F 97.9 F Pulse Rate 82 86 91 H Respiratory Rate 18 18 22 Blood Pressure 136/64 149/72 H 122/79 04/13/18 20:30 04/13/18 23:00 04/14/18 03:00 Temperature 98.2 F 98.2 F Pulse Rate 76 79 Respiratory Rate 22 20 20 Blood Pressure 121/60 143/71 H 04/14/18 07:24 04/14/18 07:28 Temperature 98.5 F Pulse Rate 93 H 93 H Respiratory Rate 20 Blood Pressure 156/77 H Intake & Output 04/13/18 04/14/18 04/14/18 18:59 06:59 18:59 Intake Total 1585 / 1585 192 / 192 Output Total 1050 / 1050 1100 / 1100 Balance 535 / 535 822 / 822 Weight 81 kg Intake: IV 265 / 265 Venofer Inj 200 MG In NS Inj 110 / 110 100 ML @ 110 mls/hr IV.SIG ONCE ONE Rx#:[id number] Potassium Phosphate Inj 15 MMOL 155 / 155 In NS Inj 150 ML @ 38.75 mls/ hr IV.SIG ONCE ONE Rx#:[id number] Oral 1320 / 1320 1921 / 192 Output: Urine 1100 / 1100 Urine Amount (Catheter) 1050 / 1050 Indwelling Urethral Catheter 1050 / 1050 Other: Date of Last Bowel Movement 04/13/18 04/13/18 04/14/18 # Bowel Movements 1 - Constitutional no acute distress - Routine HEENT Exam Head: Present: normocephalic, atraumatic Eye: Present: EOMI ENT: Present: mucous membranes moist - Routine Neck Exam Present: supple, full ROM - Routine Respiratory Exam Present: CTA bilaterally - Routine Cardiovascular Exam Present: RRR, S1, S2, murmur - Routine Abdominal Exam Present: soft, normoactive bowel sounds - Routine Extremities Exam Present: pulses intact - Routine Skin Exam Present: intact - Routine Neurological Exam Present: alert, oriented X3 - Detailed Neurological Exam: Coma Scale Verbal Response: Oriented - Routine Psychiatric Exam Present: normal affect, normal thought process - Urinary Catheter Management Indwelling Urethral Catheter Cath placed during this visit: yes, but has since been removed by the nurse Urethral indwelling: No Reason for continuing: Not indwelling catheter Insertion date: 04/08/18 Insertion time: 11:25 Removal date: 04/12/18 Removal time: 10:00 Results - Labs CBC & Chem 7: 04/14/18 04:15 04/14/18 04:15 Laboratory Results - last 24 hr 04/13/18 04/13/18 04/14/18 04:11 11:47 04:15 WBC 8.3 RBC 3.37 L Hgb 9.8 L Hct 29.1 L MCV 86.4 MCH 29.3 MCHC 33.9 RDW 15.2 Plt Count 129 L MPV 7.5 Prelim Diff (Auto) Slide review pending Neut % (Auto) 88.2 H Lymph % (Auto) 0.7 L [place] % (Auto) 10.0 H Eos % (Auto) 0.4 Baso % (Auto) 0.7 Neut # (Auto) 7.3 Lymph # (Auto) 0.1 L [place] # (Auto) 0.8 Eos # (Auto) 0.0 Baso # (Auto) 0.1 WBC Differential . Diff Scan Auto diff confirmed Differential Comment . Sodium Potassium Chloride Carbon Dioxide Anion Gap BUN Creatinine Estimated GFR POC Glucose 107 Random Glucose Calcium Phosphorus Magnesium Tacrolimus 4.7 L 04/14/18 04:15 WBC RBC Hgb Hct MCV MCH MCHC RDW Plt Count MPV Prelim Diff (Auto) Neut % (Auto) Lymph % (Auto) [place] % (Auto) Eos % (Auto) Baso % (Auto) Neut # (Auto) Lymph # (Auto) [place] # (Auto) Eos # (Auto) Baso # (Auto) WBC Differential Diff Scan Differential Comment Sodium 141 Potassium 3.5 Chloride 108 H Carbon Dioxide 26.1 Anion Gap 7 BUN 37 H Creatinine 1.91 H Estimated GFR 50 L POC Glucose Random Glucose 97 Calcium 7.5 L Phosphorus 2.2 L Magnesium 2.0 Tacrolimus - Procedures kidney transplant. Assessment and Plan - Plan POD# 6 , POD #4. 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 S/p wound exploration for bleeding. Allograft function: immediate. Immunosuppression: Thymoglobulin induction; Maint: steroids + Cellcept 1000 mg BID + Tacrolimus 5 mg BID Patient with refractory hypertension, improved with current BP med regimen. Continued good renal function. Encouraged fluid intake. Ambulate. Appreciate assist of other consultants. Okay with discharge to home
[2018-04-14] MEDS ORDERED: Potassium Chloride 10 MEQ ER Capsule PO ONE (09:32)
[2018-04-14] MEDS ORDERED: oxyCODONE/Acetaminophen 10/325 Tablet PO PRN (09:50)
[2018-04-14] MEDS ORDERED: Potassium Phos/Sodium Phos 250 MG Tablet PO ONE (10:00)
--- NOTE | 2018-04-14 10:15 | DRUGHERB ---
Alex Massey III 1985 [id number] Post-op Day #6: Patient has been educated on his home medications and do not have any questions to the pharmacist. Isabel Mchugh, PharmD 04/14/17 0900
--- NOTE | 2018-04-14 10:33 | P.DIET ---
Nutritional Evaluation Type of nutrition evaluation: follow-up Screening comments: Nutrition Education Review and Discharge Planning Subjective Subjective Comments: Patient states he feels great and has a good appetite. Objective - Diagnosis ESRD/Kidney Transplant - Objective % IBW: 90 (IBW: 83.6kg) Body Weight Used for Calculations: Actual Energy Needs - Lower Range (kCal/kg): 28 Energy Needs - Upper Range (kCal/kg): 33 Lower Limit kCal/kg (kCals): 2,103 Upper Limit kCal/kg (kCals): 2,478 Lower Limit Protein Factor (Grams per Kg): 1.2 Upper Limit Protein Factor (Grams per Kg): 1.5 Lower Protein Needs (Protein): 90 Upper Protein Needs (Protein): 113 Dietitian Reviewed in Medical Record: Current diet, Curent medications, Intake & Output, Labs, Medical history Diet Order: Regular Oral Diet Intake Amount: Good 75-90% Assessment Assessment: Reviewed nutrition education after transplant with patient and his girlfriend. Patient is currently on a regular diet and will follow that at home. Reviewed potassium and phosphorus foods to now include in his daily PO intake. Reviewed food safety and the importance of reducing his risk of food borne illness. I stressed the importance of drinking adequate water, 2-3L/day. I reviewed with patient that medications may elevate cholesterol and triglycerides. I discussed the monitoring of glucose while on steroids and the possibility of prograf-induced diabetes. I also discussed the possibility of weight gain related to increased appetite and medications. This is patients second kidney transplant so both he and his girlfriend are very familiar with nutrition post-transplant. Patient to discharge home today. Will follow patient after discharge in the out-patient transplant clinic.
[2018-04-14] MEDS ORDERED: HYDROmorphone PF Inj 2 MG/ML Vial IV.PUSH ONE (10:34)
--- NOTE | 2018-04-14 11:25 | P.DS ---
DS: Providers Date of admission: 04/07/18 17:10 Primary care physician: UNKNOWN Consults: 04/07/18 18:39 Consult to Nephrology Routine Consulting Provider: Bronson Burr Does the patient have a Residential Property Consultant who follows them?: Yes Preferred Nephrology Collision Repair Technician:: Bronson Burr Reason for Consultation: ESRD on dialysis Notified:: Service Spoke with:: Yesenia Date Notified:: 04/07/18 Time Notified:: 18:43 Ordering Provider: MONY 04/07/18 18:42 Consult to Transplant Surgery Routine Consulting Provider: Narayan Healy Reason for Consultation: Renal transplant patient Spoke with:: added to list Date Notified:: 04/07/18 Time Notified:: 18:44 Comments:: This patient was direct admit per Dr Healy for transplant surgery - ML Ordering Provider: MONY 04/13/18 14:05 Consult to Hospitalist Routine Consulting Provider: Dino Doheryt Reason for Consultation: Assume care in am 04/14/18 Notified:: Service Spoke with:: Ruchi Date Notified:: 04/13/18 Time Notified:: 14:18 Comments:: Waiting for call back from call center. 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 Patient states that he knew about his renal disease for many years and started dialysis in 2012. He says he started the transplant workup 1-2 days ago. He says he makes 0 urine at this time. His last dialysis session was on Wednesday. He has not had any problems with dialysis. He says every once in a while he will get back pains and headaches for which he takes Percocet at home. He is active and plays basketball every once in a while. He denies any recent fevers. He did endorse a cold a few weeks ago. He has no acute complaints at this time. Discussed with nursing and family at the bedside. DS: Diagnosis Discharge Diagnosis (1) ESRD (end stage renal disease) on dialysis: Status: Chronic (2) HTN (hypertension): Status: Acute DS: Summary patient was admitted for kidney transplant.post-op course was complicated by uncontrolled hypertension and post-op anemia due to hematoma. he underwent wound exploration, evacuation of hematoma, suture repair of single area of anastomotic arterial hemorrhage.he was started on Nitro drip which was later switched to oral BP regimen- his BP gradually improved and H/H remained stable. he had good urine output with improved and stable renal function. he will be discharged home with f/u by pcp, nephrology and transplant surgery. Time Spent with Patient Total time spent providing and/or coordinating discharge services: Greater than 30 minutes Specific discharge activities: 35 min. Exam Narrative Exam Narrative: patient in no acute distress. S1/S2 heard/ abdomen is soft/ no pedal edema/ bilateral air entry present/patient is awake and oriented. Results Procedures completed during hospitalization: kidney transplant. underwent wound exploration, evacuation of hematoma, suture repair of single area of anastomotic arterial hemorrhage. Labs on day of discharge: Labs from last 24 hours 04/14/18 04/14/18 04/14/18 04:15 04:15 04:15 WBC 8.3 RBC 3.37 L Hgb 9.8 L Hct 29.1 L MCV 86.4 MCH 29.3 MCHC 33.9 RDW 15.2 Plt Count 129 L MPV 7.5 Prelim Diff (Auto) Slide review pending Neut % (Auto) 88.2 H Lymph % (Auto) 0.7 L [place] % (Auto) 10.0 H Eos % (Auto) 0.4 Baso % (Auto) 0.7 Neut # (Auto) 7.3 Lymph # (Auto) 0.1 L [place] # (Auto) 0.8 Eos # (Auto) 0.0 Baso # (Auto) 0.1 WBC Differential . Diff Scan Auto diff confirmed Differential Comment . Sodium 141 Potassium 3.5 Chloride 108 H Carbon Dioxide 26.1 Anion Gap 7 BUN 37 H Creatinine 1.91 H Estimated GFR 50 L POC Glucose Random Glucose 97 Calcium 7.5 L Phosphorus 2.2 L Magnesium 2.0 Tacrolimus 6.2 04/13/18 11:47 WBC RBC Hgb Hct MCV MCH MCHC RDW Plt Count MPV Prelim Diff (Auto) Neut % (Auto) Lymph % (Auto) [place] % (Auto) Eos % (Auto) Baso % (Auto) Neut # (Auto) Lymph # (Auto) [place] # (Auto) Eos # (Auto) Baso # (Auto) WBC Differential Diff Scan Differential Comment Sodium Potassium Chloride Carbon Dioxide Anion Gap BUN Creatinine Estimated GFR POC Glucose 107 Random Glucose Calcium Phosphorus Magnesium Tacrolimus Impressions ITS Impressions Abdomen/Pelvis CT 04/10/18 00:00 . CONCLUSION: 1. Transplant right lower quadrant a small hematoma adjacent to the upper pole the transplant. 2. I don't see evidence for a large hematoma to account for the dropped hematocrit. 3. This could easily be surveilled by ultrasound 4. Moderate free intraperitoneal fluid, low-density not felt to be blood. Renal Ultrasound 04/10/18 14:42 CONCLUSION: 1. Unremarkable appearance of right lower quadrant transplant kidney without perioperative fluid collection or hydronephrosis. 2. Slightly improved but persistently elevated main renal artery velocities. Abdomen X-Ray 04/11/18 00:00 CONCLUSION: Right transplant kidney with ureteral stent in place. Chest X-Ray 04/11/18 00:00 CONCLUSION: Cardiomegaly with increasing interstitial edema and bibasilar parenchymal changes Discharge Plan Discharge Disposition Patient Disposition: 01 Discharge Home Discharge Condition Condition: Fair Discharge Order Discharge Orders: Discharge Order (Routine); Ordered 04/14/18 Ordered By: Lloyd Washington Physicians Team Primary Care Provider: UNKNOWN, Attending Provider: Lloyd Washington Other Providers: Bronson Burr ; Narayan Healy Rxs /Orders / Referrals /Forms Prescriptions: New clotrimazole 10 mg Rafa 10 mg buccal TID Qty: 120 RF: 9 carvedilol [Coreg] 12.5 mg Tablet 37.5 mg PO BID Qty: 120 RF: 12 clonidine HCl [Catapres] 0.2 mg Tablet 0.4 mg PO Q6HR Qty: 120 RF: 12 oxycodone-acetaminophen 10-325 mg Tablet 1 tab PO Q4H PRN (Reason: Abdominal Pain) Qty: 30 RF: 0 tamsulosin 0.4 mg Capsule 0.4 mg PO DAILY Qty: 30 RF: 0 ferrous sulfate [FeroSul] 325 mg (65 mg iron) Tablet 325 mg PO BID Qty: 120 RF: 6 calcium carbonate 200 mg calcium (500 mg) Tablet,Chewable 500 mg CHEW BID@,16 Qty: 120 RF: 12 minoxidil 10 mg Tablet 20 mg PO Q8HR Qty: 120 RF: 12 docusate sodium [DOK] 100 mg Capsule 100 mg PO BID Qty: 60 RF: 2 sod phos di, mono-K phos mono [P-Nmmr-Qhtdqtk] 250 mg Tablet 500 mg PO TID Qty: 120 RF: 12 hydralazine 50 mg Tablet 100 mg PO Q8H Qty: 120 RF: 12 cinacalcet [Sensipar] 30 mg Tablet 120 mg PO DAILY Qty: 120 RF: 12 mycophenolate mofetil [CellCept] 500 mg Tablet 1,000 mg PO BID@0600,1800 RF: 0 tacrolimus [Prograf] 1 mg Capsule 1 mg PO DAILY@0600,1800 RF: 0 prednisone 20 mg Tablet 20 mg PO DAILY Qty: 0 RF: 0 tacrolimus [Prograf] 5 mg Capsule 5 mg PO BID@0600,1800 RF: 0 valganciclovir [Valcyte] 450 mg Tablet 450 mg PO DAILY RF: 0 sulfamethoxazole-trimethoprim 800-160 mg Tablet 1 tab PO MoWeFr RF: 0 Continue amlodipine 10 mg Tablet 10 mg PO BID Qty: 120 RF: 12 Discontinued clonidine HCl 0.2 mg Tablet 0.2 mg PO BID RF: 0 minoxidil 2.5 mg Tablet 2.5 mg PO DAILY RF: 0 carvedilol 25 mg Tablet 37.5 mg PO BID RF: 0 spironolactone 25 mg Tablet 25 mg PO DAILY RF: 0 cinacalcet [Sensipar] 90 mg Tablet 120 mg PO DAILY RF: 0 sevelamer carbonate [Renvela] 800 mg Tablet 4,000 mg PO TID RF: 0 losartan 50 mg Tablet 50 mg PO DAILY RF: 0 oxycodone-acetaminophen [Percocet] 10-325 mg Tablet 1 tab PO QID PRN (Reason: Pain) RF: 0 Referrals: UNKNOWN, [Primary Care Provider] - See Instructions Discharge Instructions Patient Printed Instructions: Oxycodone/Acetaminophen (By mouth), Kidney Transplant (DC) Additional Instructions: all care, meds,follow-up dr. luther.post op care per transplant team. todays am meds have been given n
== END 2018-04-14 11:30 | disposition home or self-care (01) | DRG 652 ==
LOC: HCPC 17:10 → HCVI 04-08 17:00
PROVIDERS: ADMIT Internal Medicine; ATTEND Internal Medicine
DX: N99.820 Postprocedural hemorrhage of a genitourinary system organ or structure following a genitourinary system procedure; D63.1 Anemia in chronic kidney disease; D62 Acute posthemorrhagic anemia; Z87.891 Personal history of nicotine dependence; Y83.0 Surgical operation with transplant of whole organ as the cause of abnormal reaction of the patient, or of later complication, without mention of misadventure at the time of the procedure; K21.9 Gastro-esophageal reflux disease without esophagitis; I16.1 Hypertensive emergency; N03.2 Chronic nephritic syndrome with diffuse membranous glomerulonephritis; Z79.899 Other long term (current) drug therapy; K66.1 Hemoperitoneum; Z82.49 Family history of ischemic heart disease and other diseases of the circulatory system; K27.9 Peptic ulcer, site unspecified, unspecified as acute or chronic, without hemorrhage or perforation; N25.81 Secondary hyperparathyroidism of renal origin; G93.40 Encephalopathy, unspecified; B37.9 Candidiasis, unspecified; Z99.2 Dependence on renal dialysis; N26.9 Renal sclerosis, unspecified; N18.6 End stage renal disease
CPT/HCPCS: 36415; 36430; 71010; 71020; 71045; 71046; 74000; 74018; 74176; 76776; 76778; 76937; 80048; 80053; 80074; 80197; 82040; 82728; 82805; 82948; 82962; 83540; 83550; 83735; 84100; 85014; 85018; 85025; 85027; 85044; 85610; 85730; 86850; 86900; 86901; 86923; 90935; 93005; 94002; 94150; 94656; 99211; C9113; C9248; G0463; J0330; J0360; J0690; J1170; J1200; J1265; J1580; J1644; J1756; J1940; J2060; J2270; J2405; J2597; J2704; J2710; J2920; J2930; J3010; J7030; J7040; J7050; J7506; J7507; J7508; J7511; J7512; J7517; P9016; P9031; P9045